=== PATIENT | female | born 1990 | race Caucasian/White ===

== ENCOUNTER 2019-08-24 11:40 | Emergency (ER) | payer BC, SELFPAY ==
[2019-08-24 11:48] VITALS: BP 135/87; PULSE 120; RESP 16; TEMP 37.7; O2SAT 100
--- NOTE | 2019-08-24 12:04 | ED.GENADULT ---
HPI - General Adult General Chief complaint: Upper Respiratory Infection Stated complaint: Congestion Time Seen by Provider: 08/24/19 12:04 Source: patient and RN notes reviewed Mode of arrival: ambulatory Limitations: no limitations History of Present Illness HPI narrative: 29-year-old female with complaints of upper respiratory infection symptoms, tactile fever, body aches, cough, and intermittent headaches (not the worst of her life) for 14 days. Flonase, Benadryl, DayQuil, Zyrtec, Singulair, and Tylenol (last this morning at 7 AM) with little relief. History of Asthma. Molly is concered because a coworker was recently diagnosis with Influenza. Dry cough with intermittent productive cough (yellow phlegm). Rhinorrhea and nasal congestion. No exacerbating factors consist of smoke exposure. Tactile fevers with intermittent chills. No nausea, vomiting, and abdominal pain. Denies chest pain, dyspnea, coughing up blood, difficulty swallowing, jaw pain, dental pain, facial pain, foreign body sensation, and rash. Molly denies being , LMP 08/16/2019. Some parts of this dictation were generated by voice recognition software and may contain typographical and/or grammatical inaccuracies. Related Data Home Medications Medication Instructions Recorded Confirmed albuterol sulfate 1 puff INHALATION BID 08/24/19 08/24/19 cetirizine [Zyrtec] 10 mg PO DAILY 08/24/19 08/24/19 fluticasone propionate 50 mcg INTRANASAL DAILY 08/24/19 08/24/19 montelukast 10 mg PO DAILY 08/24/19 08/24/19 Allergies Allergy/AdvReac Type Severity Reaction Status Date / Time No Known Allergies Allergy Verified 08/24/19 11:52 Review of Systems Review of Systems: Narrative: CONSTITUTIONAL: Complains of tactile fever, chills. Denies sweats. EYES: Denies visual changes, redness, discharge. ENT: Complains of rhinorrhea, congestion. Denies sore throat, otalgia. CARDIOVASCULAR: Denies chest pain, palpitations, edema. RESPIRATORY: Denies dyspnea, wheezing. Complains of dry cough, intermittent productive cough. GASTROINTESTINAL: Denies abdominal pain, nausea, vomiting, diarrhea. GENITOURINARY: Denies dysuria, hematuria, abnormal discharge. SKIN: Denies rash or itching. MUSCULOSKELETAL: Denies acute back pain, joint pain. Complains of myalgia. NEUROLOGIC: Denies numbness or focal weakness. PSYCHIATRIC: Denies anxiety or depression. Complains of intermittent ECHEVARRIA. All systems reviewed & are unremarkable except as noted in HPI and below. [facility] Past Medical History Medical History (Updated 08/24/19 @ 12:52 by ERYN Zhu) Asthma delivery delivered Genital herpes Surgical History Surgical History (Updated 08/24/19 @ 12:52 by ERYN Zhu) H/O section History of cholecystectomy Family History Family History Grandparent Hypertension Cerebrovascular accident Carcinoma of colon Family history of coronary artery disease Diabetes mellitus Mother Hypertension Family history of elevated blood lipids Family history of rheumatoid arthritis Family history of gallbladder disease Sibling Family history of elevated blood lipids Family history of gastrointestinal disorder Family history of seizure disorder Father Family history of arthritis Other Family history of malignant neoplasm of cervix Social History Social History (Updated 08/24/19 @ 12:53 by ERYN Zhu) Smoking packs per day: 0.75 Smoking cigarettes per day: 15.0 Years smoked: 4 Smoking pack-years: 3.00 Smoking status: Current every day smoker Tobacco type: cigarettes Second hand tobacco smoke exposure: No Alcohol intake: current Alcohol use details: Rarely Substance use: never Living arrangements: with family Occupation/Education: occupation Gender identity (if verbalized by the patient): Female Comments At time of
== END 2019-08-24 12:24 | disposition home or self-care (01) ==
PROVIDERS: Emergency Provider Nurse Practitioner Family; PCP Internal Medicine
DX: J10.1 Influenza due to other identified influenza virus with other respiratory manifestations (principal); F17.210 Nicotine dependence, cigarettes, uncomplicated; J45.909 Unspecified asthma, uncomplicated
CPT/HCPCS: 87804; 99213; G0463

== ENCOUNTER 2021-03-02 14:28 | Emergency (ER) | payer OTHER, SELFPAY ==
[2021-03-02 14:43] VITALS: BP 126/83; PULSE 122; RESP 16; TEMP 37.2; O2SAT 99
--- NOTE | 2021-03-02 15:11 | ED.URI ---
HPI - URI/Sore Throat General Chief Complaint: Upper Respiratory Infection Stated Complaint: cough/mucus/congestion Source: patient and RN notes reviewed Limitations: no limitations History of Present Illness HPI Narrative: The unvaccinated patient, who is a smoker/occasional drinker staying at home, presents with 1/2-week history of nasal congestion, cough and mild hoarseness. Family members/notes are unwell; no fever measured, sore throat, earache, pet/allergy triggers. No loss of taste/smell, CP, wheezing/sneezing, S OB, vomiting/diarrhea. She requests refill of prior inhaler Related Data Home Medications Medication Instructions Recorded Confirmed albuterol sulfate 1 puff INHALATION BID 08/24/19 03/02/21 Allergies Allergy/AdvReac Type Severity Reaction Status Date / Time No Known Allergies Allergy Verified 03/02/21 14:47 Review of Systems Review of Systems: General/Constitutional: No weight loss,fever Eyes: N0: Redness,discharge Ears/Nose/Throat: No: Epistaxis,ear discharge Respiratory: Denies: Hemoptysis Gastrointestinal: No Vomiting, Bleeding-rectal Skin: No Lumps, eruption Neurologic: No Focal Weakness,Sz Hematologic: Denies: Petechiae/Purpura Psychiatric: No: Suicida ideationl All Other Systems: Reviewed and Negative [facility] Past Medical History Medical History (Updated 03/02/21 @ 15:16 by Apolinar Coulter MD) Asthma delivery delivered Genital herpes Surgical History Surgical History (Updated 08/24/19 @ 12:52 by ERYN Zhu) H/O section History of cholecystectomy Family History Family History Grandparent Hypertension Cerebrovascular accident Carcinoma of colon Family history of coronary artery disease Diabetes mellitus Mother Hypertension Family history of elevated blood lipids Family history of rheumatoid arthritis Family history of gallbladder disease Sibling Family history of elevated blood lipids Family history of gastrointestinal disorder Family history of seizure disorder Father Family history of arthritis Other Family history of malignant neoplasm of cervix Social History Social History (Updated 08/24/19 @ 12:53 by ERYN Zhu) Smoking packs per day: 0.75 Smoking cigarettes per day: 15.0 Years smoked: 4 Smoking pack-years: 3.00 Smoking status: Current every day smoker Tobacco type: cigarettes Second hand tobacco smoke exposure: No Alcohol intake: current Alcohol use details: Rarely Substance use: never Gender identity (if verbalized by the patient): Female Comments At time of signature, agree with nursing past medical, surgical, social and family history. There is no relevant family history pertinent to the presenting complaint Exam Narrative: General Appearance: Well appearing, Well nourished EYE: PERRLA, Conjunctiva clear Ears: Auditory canal normal, TM normal Nose: Rhinorrhea, Mucousal erythema Mouth/Throat: MM moist, Uvula midline, Pharyngeal erythema Neck: Supple, No adenopathy Respiratory: No respiratory distress, Breath sounds equal, Clear to auscultation Cardiovascular: RRR, No JVD Musculoskeletal: Non tender, Normal strength Skin: Warm, Dry Neurological: A&O x3, CN II-XII intact Psychiatric: Normal mood, Normal affect Course Vital Signs Vital signs: Vital Signs Temperature 98.9 F 03/02/21 14:43 Pulse Rate 122 H 03/02/21 14:43 Respiratory Rate 16 03/02/21 14:43 Blood Pressure 126/83 03/02/21 14:43 Pulse Oximetry 99 03/02/21 14:43 Temperature 98.9 F 03/02/21 14:43 Pulse Rate 122 H 03/02/21 14:43 Respiratory Rate 16 03/02/21 14:43 Blood Pressure 126/83 03/02/21 14:43 Pulse Oximetry 99 03/02/21 14:43 Discharge Plan Discharge Clinical Impression: Influenza-like illness Patient Disposition: Home, Self-Care Condition: Stable Instructions: Acute B
== END 2021-03-02 15:28 | disposition home or self-care (01) ==
PROVIDERS: Emergency Provider Emergency Medicine
DX: J11.1 Influenza due to unidentified influenza virus with other respiratory manifestations (principal); F17.210 Nicotine dependence, cigarettes, uncomplicated
CPT/HCPCS: 99213; G0463

== ENCOUNTER → 2021-03-05 01:31 | Outpatient (CLI) | payer OTHER, SELFPAY ==
[2021-03-05 17:06] LABS: SARS-CoV-2 RNA PCR Negative
== END ==
PROVIDERS: Visit Provider Emergency Medicine
DX: Z20.822 Contact with and (suspected) exposure to COVID-19 (principal); J11.1 Influenza due to unidentified influenza virus with other respiratory manifestations
CPT/HCPCS: C9803; U0003; U0005

== ENCOUNTER 2021-08-17 15:59 | Emergency (ER) | payer OTHER, SELFPAY ==
[2021-08-17 16:04] VITALS: BP 132/81; PULSE 108; RESP 16; TEMP 36.8; O2SAT 99
--- NOTE | 2021-08-17 16:04 | ED.DENTAL ---
HPI - Dental/Oral General Chief complaint: Dental/Oral Stated complaint: Jaw pain Time Seen by Provider: 08/17/21 16:13 Mode of arrival: ambulatory Limitations: no limitations History of Present Illness HPI Narrative: 31-year-old female presents with concern for right tooth and jaw pain. She reports she has had problems with her wisdom teeth for a long time, however they have become more painful in the last several days. She reports using Orajel with temporary relief. She reports taking ibuprofen occasionally. She reports she has a dentist that she can go see, and will make an appointment. She denies difficulty swallowing, fever, headache. MD Complaint: tooth pain Related Data Home Medications Medication Instructions Recorded Confirmed cetirizine [Zyrtec] 10 mg PO DAILY 08/17/21 08/17/21 fluticasone propionate 1 spray INTRANASAL DAILY 08/17/21 08/17/21 Allergies Allergy/AdvReac Type Severity Reaction Status Date / Time No Known Allergies Allergy Verified 08/17/21 16:06 Review of Systems Review of Systems: CONSTITUTIONAL: Denies malaise, chills, sweats, or fever. EYES: Denies visual changes ENT: Denies rhinorrhea, congestion, sinus pain, otalgia or sore throat. Reports right upper and lower posterior dental pain CARDIOVASCULAR: Denies chest pain, palpitations RESPIRATORY: Denies cough or dyspnea. SKIN: Denies rash or itching. MUSCULOSKELETAL: Denies myalgia. NEUROLOGIC: Denies numbness, weakness, or headache. All systems reviewed & are unremarkable except as noted in HPI and below PMFSH Past Medical History Medical History (Updated 08/17/21 @ 16:20 by Farideh Molina NP) Asthma delivery delivered Genital herpes Surgical History Surgical History (Updated 08/24/19 @ 12:52 by ERYN Zhu) H/O section History of cholecystectomy Family History Family History Grandparent Hypertension Cerebrovascular accident Carcinoma of colon Family history of coronary artery disease Diabetes mellitus Mother Hypertension Family history of elevated blood lipids Family history of rheumatoid arthritis Family history of gallbladder disease Sibling Family history of elevated blood lipids Family history of gastrointestinal disorder Family history of seizure disorder Father Family history of arthritis Other Family history of malignant neoplasm of cervix Social History Social History (Updated 08/24/19 @ 12:53 by ERYN Zhu) Smoking packs per day: 0.75 Smoking cigarettes per day: 15.0 Years smoked: 4 Smoking pack-years: 3.00 Smoking status: Current every day smoker Tobacco type: cigarettes Second hand tobacco smoke exposure: No Alcohol intake: current Alcohol use details: Rarely Substance use: never Gender identity (if verbalized by the patient): Female Comments At time of signature, agree with nursing past medical, surgical, social and family history. There is no relevant family history pertinent to the presenting complaint Exam Narrative: GENERAL: Well-appearing, well-nourished, and in no acute distress. HEAD: Normocephalic, atraumatic. EYES: PERRLA, sclera clear ENT: Nares clear, turbinates pink, no rhinorrhea or epistaxis. Mucous membranes moist. TM pearly christina with sharp light reflex bilaterally; no tragal tenderness. Oropharynx without erythema or lesions. Tonsils not enlarged and without exudate. No missing teeth, broken teeth. Mild posterior erythema noted to the right upper and lower side with possible caries NECK: Supple. No lymphadenopathy. CHEST: No respiratory distress. Speaks in full sentences. HEART: Regular rate and rhythm. SKIN: Warm, dry, no visible rash. NEURO: Alert and oriented x3. PSYCH: Normal mood and affect Course Course Emergency Course: Patient is aware of diagnosis, understands and agrees to treatment plan. Anticipatory guidance give
[2021-08-17 16:09] VITALS: BP 132/81; PULSE 108; RESP 16; TEMP 36.8; O2SAT 99
== END 2021-08-17 16:25 | disposition home or self-care (01) ==
PROVIDERS: Emergency Provider Nurse Practitioner
DX: K08.89 Other specified disorders of teeth and supporting structures (principal); F17.210 Nicotine dependence, cigarettes, uncomplicated; J45.909 Unspecified asthma, uncomplicated
CPT/HCPCS: 99213; G0463

== ENCOUNTER 2024-08-07 10:06 | Outpatient (CLI) | payer OTHER, SELFPAY | END 2024-08-07 10:07 | disposition home or self-care (01) | LOC: ANHBWCAUD 10:06 | DX: H93.13 Tinnitus, bilateral (principal); R42 Dizziness and giddiness; E83.119 Hemochromatosis, unspecified | CPT/HCPCS: 92557; 92567 ==

== ENCOUNTER 2025-01-03 13:04 | Outpatient (CLI) | payer OTHER, SELFPAY ==
--- OUTSIDE RECORDS SUMMARY | 2025-01-03 13:07 | XMS_ITS | Encounter Summary ---
Author Organization [facility] Address [address] [place] [address] Care Team Providers Care Fence Supervisor Name Role Phone Unavailable Primary Care Provider Unavailabl e Encounter Details Date Type Department Care Team (Late Contact Info) Description 01/03/2025 Abstract [facility] Oncology and Hematology - [facility] [address] [place] [address] Carlos Harrington MD [address] [place] [phone] Social History Tobacco Use Types Packs/Day Years Used Date Smoking Tobacco: Former Cigarettes 0.3 1 Alcohol Use Standard Drinks/Week Comments No 0 (1 standard drink = 0.6 oz pur e alcohol) Comments No Sex and Gender Information Value Date Recorded Sex Assigned at Not on file Legal Sex Female 6:09 AM 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 Gender Identity Not on file Sexual Orientation Not on file Occupation Industry Job Start Date Job End Date Not on file Not on file Not on file Not on file documented as of this encounter Plan of Treatment Upcoming Encounters Date Type Department Care Team (Late Contact Info) Description 01/17/2025 4:30 PM CDT Telephone Check Up [facility] Oncology and Hematology - [place] [address] [place] [address] Carlos Harrington MD [address] [place] [phone] documented as of this encounter Visit Diagnoses Not on filedocumented in this encounter
--- OUTSIDE RECORDS SUMMARY | 2025-01-03 13:07 | XMS_ITS | Encounter Summary ---
Author Organization [facility] Address [address] [place] [address] Phone Care Team Providers Care Resume Specialist Name Role Phone Marlys Urena APRN, ACCOUNTING POLICY CONSULTANT Primary Care Provider [phone] Florencia Bhatia APRN, INFECTION CONTROL MANAGER Unavailable + [phone] Shweta Nino APRN, ACCOUNTING POLICY CONSULTANT Unavailable Warren Saunders MD Unavailable Elzbieta Deleon CERAMIST Unavailable Unavailab le Reason for Referral * Consult, Test & Initiate Treatment (Routine) - Closed Specialty Diagnoses / Procedures Referred By Contac t Referred To Contact Diagnoses Other chronic sinusitis Warren Saunders MD [address] [place] [address] Phone: tel: fax: [facility] [address] [place] [address] [place] [address] Phone: tel: fax: Referral ID Status Reason Start Date Expiration Date Visits Re quested Visits Authorized [id number] Closed 09/14/2024 1 1 Scheduling Instructions Molly is being referred for chronic sinusitis. Please contact patient for scheduling questions or concerns. Reason for Visit * Reason Onset Date Comments Referral 09/13/2024 EXTERNAL ENT REF ERRAL for Other chronic sinusitis Ordered by Dr Warren Saunders Encounter Details Date Type Department Care Team (Late st Contact Info) Description 09/13/2024 Telephone [facility]erral [facility] [address] [place] [address] Warren Saunders MD [address] [place] [address] Referral (EXTERNAL ENT REFERRAL for Other chronic sinusitis Ordered by Dr Warren Saunders //) Social History Tobacco Use Types Packs/Day Years Used Date Smoking Tobacco: Former Cigarettes 2 - 07/21/2024 Smokeless Tobacco: Never Alcohol Use Standard Drinks/Week Comments Not Currently 0 (1 standard drink = 0.6 oz pur e alcohol) [facility] Utilities Answer Date Recorded In the past 12 months has [employer], gas, oil, or water [employer] threatened to shut off services in your home? No 09/14/2024 Social Connection and Isolation Panel Answer Date Recorded In a typical week, how many times do you talk on the phone with family, friends, or neighbors? More than three times a week 09/14/2024 How often do you get togethe r with friends or relatives? More than three times a week 09/14/2024 How often do you attend [facility] or [facility] services? Never 09/14/2024 Do you belong to any clubs o r organizations such as restorationist groups, unions, fraternal or athletic groups, or school groups? No 09/14/2024 How often do you attend meet ings of the clubs or organizations you belong to? Never 09/14/2024 Are you , , di vorced, , never , or living with a partner? 09/14/2024 AUDIT-C Answer Date Recorded Q1: How often do you have a drink containing alcohol? Never 09/14/2024 Q2: How many drinks containi ng alcohol do you have on a typical day when you are drinking? Patient does not drink Q3: How often do you have si x or more drinks on one occasion? Never 09/14/2024 Overall Financial Resource Strain (CARDIA) Answe r Date Recorded How hard is it for you to pa y for the very basics like food, housing, medical care, and heating? Hard 09/14/2024 PHQ-2 Answer Date Recorded Total Score - Questions 1-9 0 06/13 [facility] - Occupational Stress Questionnaire Answer Date Recorded Do you feel stress - tense, restless, nervous, or anxious, or unable to sleep at night because your mind is troubled all the time - these days? Not at all 09/14/2024 Exercise Vital Sign Answer Date Recorde d On average, how many days pe r week do you engage in moderate to strenuous exercise (like a brisk walk)? 0 days 09/14/2024 On average, how many minutes do you engage in exercise at this level? 0 min 09/14/2024 Hunger Vital Sign Answer Date Recorded Within the past 12 months, y ou worried that your food would run out before you got the money to buy more. Never true 09/15/19 25 Within the past 12 months, t he food you bought just didn't last and you didn't have money to get more. Never true 09/14/2024 PRAPARE - Transportation Answer Date Re corded In the past 12 months, has l ack of transportation kept you from medical appointments or from getting medications? No 09/2024 In the past 12 months, has l ack of transportation kept you from meetings, work, or from getting things needed for daily living? No 09/14/2024 Housing Stability Vital Sign Answer Marcio e Recorded In the last 12 months, was t here a time when you were not able to pay the mortgage or rent on time? No 09/14/2024 In the past 12 months, how m any times have you moved where you were living? 0 09/14/2024 At any time in the past 12 m [facility], were you homeless or living in a senior care (including now)? No 09/14/2024 Comments No Sex and Gender Information Value Date Recorded Sex Assigned at Not on file Legal Sex Female 8:47 AM CDT Gender Identity Not on file Sexual Orientation Not on file documented as of this encounter Functional Status * AUDIT-C Score Answer Date of Assessment Author 0 09/14/2024 8:31 AM CDT Herlinda Montes De Oca * Question Answer Date of Assessment Author Q1: How often do you have a drink containing alcohol? Never 09/14/2024 8:31 AM CDT Jassi Montes De Oca Q2: How many drinks containing alcohol do you have on a typical day when you are drinking? Patient does not drink 09/14/2024 8:31 AM CDT Jassi Montes De Oca Q3: How often do you have six or more drinks on one occasion? Never 09/14/2024 8:31 AM CDT Jassi Montes De Oca documented as of this encounter Miscellaneous Notes * Telephone Encounter - Nel Delcid RN - 09/14/2024 8:04 AM CDT New order for ENT referral placed * Telephone Encounter - Cindy Mckenzie - 09/13/2024 2:40 PM CDT EXTERNAL ENT REFERRAL for Other chronic sinusitis Ordered by Dr Warren Saunders SITUATION: Speciality office requesting provider review EXTERNAL ENT REFERRAL BACKGROUND: Referral unable to be processed. ASSESSMENT: Request for provider review due to the following reason(s): Referral order inaccurate. Office where referral was sent - the provider listed in the instructions is not with the below office location- and below is where patient would like to be seen - just cannot have a non [facility] provider listed - please Place new referral so patient can be scheduled RECOMMENDATION: Based on the above information the provider has the following option(s): Please Place new referral To: [facility] ENT: [facility] [address] Sita Harman or other provider [address] [place] [address] [facility] [place] [facility] Dx: Other chronic sinusitis Warren Saunders MD [facility] - Referrals opt 7 documented in this encounter Plan of Treatment Upcoming Encounters Date Type Department Care Team (Late st Contact Info) Description 01/22/2025 11:30 AM CDT Office Visit [facility] - Pulmonology & Sleep Medicine [facility] [address] [place] [address] Warren Saunders MD [address] [place] [address] 02/19/2025 10:50 AM CDT Lab [facility] [address] [place] [address] Jaspal Cowan MD [address] [place] [address] Discharge Disposition: Discharged to home or Selfcare 02/19/2025 11:00 AM CDT Office Visit [facility] [address] [place] [address] Jaspal Cowan MD [address] [place] [address] Discharge Disposition: Discharged to home or Selfcare Scheduled Referrals Name Type Priority Associated Diagnoses Orde r Schedule ENT REFERRAL Outpatient Referral Routine Other chronic sinusitis Expected: 09/14/2024, Expires: 09/14/2025 documented as of this encounter Visit Diagnoses Diagnosis Other chronic sinusitis- Primary documented in this encounter Additional Health Concerns Assessment Noted Time PHQ-9 Depression Total Score: 0 06/25/19 25 4:17 PM COMPOSITOR APPRENTICE documented as of this encounter Care Teams Resume Specialist Relationship Specialty Start Date End Date Marlys Urena, WEB GRAPHIC DESIGNER, ACCOUNTING POLICY CONSULTANT [address] [address] PCP - General Certified Nurse Practitioner 07/09/24 Florencia Bhatia APRN, INFECTION CONTROL MANAGER [address] [place] [address] Nurse Practitioner Advanced Practice Nurse 08/08/24 Shweta Nino APRN, ACCOUNTING POLICY CONSULTANT [address] [place] [address] Nurse Practitioner Advanced Practice Nurse 08/13/24 Warren Saunders MD [address] [place] [id number] Consulting Physician Pulmonary Disease 08/27/24 Elzbieta Deleon, CERAMIST [facility] Support Consultant Video Production Engineer 11/06/24 11/08/24 documented as of this encounter
--- OUTSIDE RECORDS SUMMARY | 2025-01-03 13:07 | XMS_ITS | Clinical Summary ---
Author Organization [facility] Virtual Care Address Formerly [facility] [place] [address] Phone Care Team Providers Care Medical Surgery Nurse Name Role Phone Marlys Urena NP Primary Care Provider [phone] Allergies No known active allergies Medications acetaminophen (TYLENOL) 500 mg tablet Take 2 tablets (1,000 mg total) by mouth every 6 (six) hours as needed Active famotidine (PEPCID) 10 mg tablet Take 1 tablet (10 mg total) by mouth daily Active fluticasone propionate (FLONASE) 50 mcg/actuation nasal spray Administer 1 spray into affected nostril(s) 2 (two) times a day as needed 5 Active ibuprofen 200 mg tab/cap Take 1 tablet/capsule (200 mg total) by mouth every 6 (six) hours as needed Active LORazepam (ATIVAN) 1 mg tablet Take 0.5 tablets (0.5 mg total) by mouth every 12 (twelve) hours as needed 5 Active SUMAtriptan (IMITREX) 50 mg tablet Take 1 tablet (50 mg total) by mouth daily as needed 5 Active cyanocobalamin, vitamin B-12, 1,000 mcg/mL drops Take 2 Pump by mouth daily Active cholecalciferol , vitamin D3, (VITAMIN D3 ORAL) Take 4,000 Units by mouth daily Active Active Problems Problem Noted Date Diagnosed Date 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/10/2024 Anxiety 07/09/2024 Encounters Date Type Department Care Team Description 12/24/2024 Telephone [facility] Scheduling [address] [place] [address] Alisha Fisher 12/13/2024 Results Follow-Up [facility] Allergy and Immunology [address] [facility] [address] [place] [phone] Briana Michelle MD Strep pneumoniae antibody serotypes 12/10/2024 2:59 PM CDT - 12/10/2024 11:59 PM CDT Hospital Encounter [facility] [address] [place] [address] Chronic sinusitis, unspecified location; Persistent asthma without complication, unspecified asthma severity Discharge Disposition: Discharge to home or self care 12/10/2024 2:50 PM CDT Lab [facility] Infectious Diseases [address] [facility] [address] [place] [phone] 12/10/2024 1:00 PM CDT Office Visit [facility] Allergy and Immunology [address] [facility] [address] [place] [phone] Briana Michelle MD Persistent asthma without complication, unspecified asthma severity (Primary Dx); Chronic sinusitis, unspecified location 10/24/2024 Telephone [facility] Ophthalmology [address] [place] [address] Dana Rodriguez, JOSS joshii from Last 3 Months Social History Tobacco Use Types Packs/Day Years Used Date Smoking Tobacco: Never Passive Smoke Exposure: Never Smokeless Tobacco: Never Tobacco Cessation:Counseling Given: Not Answered Personal Safety Answer Date Recorded Have you ever been in or are you currently in a harmful physical or emotional relationship or is someone making you feel afraid or unsafe? 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 Oxygen Saturation 99% 12/10/2024 1:01 PM CDT Inhaled Oxygen Concentration - - Weight 76.8 kg (169 lb 6.4 oz) 12/10/2024 1:01 P M CDT Height 154.9 cm (5' 1) 12/10/2024 1:01 PM CDT Body Mass Index 32.01 12/10/2024 1:01 PM CDT Plan of Treatment Health Maintenance Due Date Last Done Comments Cervical Cancer Screening 1992 Depression Screening 1992 Hepatitis C Screening 1992 Varicella Vaccines (1 of 2 - 13+ 2-dose series) 2005 Hepatitis B Screening 2010 Regular Well Visit/Exam 18-64 2010 Pneumococcal vaccine <65 (1 of 2 - PCV) 2011 Influenza Vaccine (#1) 2025 DTaP/Tdap/Td Vaccine (6 - Td or Tdap) 06/16/2027 06/16/2017, 02/25/1994, 02/02/1993, Additional history exists HPV Vaccines Aged Out No longer eligi ble based on patient's age to complete this topic Procedures Procedure Name Priority Date/Time Associated Diagnosis Comments BLOOD MISC TO [place] Routine 12/10/2024 6: 33 PM CDT DIFFERENTIAL AUTO Routine 12/10/2024 2:5 9 PM CDT Chronic sinusitis, unspecified location Persistent asthma without complication, unspecified asthma severity IMMUNE COMPETENCE Routine 12/10/2024 2:5 9 PM CDT Chronic sinusitis, unspecified location Persistent asthma without complication, unspecified asthma severity IGG Routine 12/10/2024 2:59 PM CDT Chronic sinusitis, unspecified location Persistent asthma without complication, unspecified asthma severity IGE Routine 12/10/2024 2:59 PM CDT Chronic sinusitis, unspecified location Persistent asthma without complication, unspecified asthma severity IGA Routine 12/10/2024 2:59 PM CDT Chronic sinusitis, unspecified location Persistent asthma without complication, unspecified asthma severity IGM Routine 12/10/2024 2:59 PM CDT Chronic sinusitis, unspecified location Persistent asthma without complication, unspecified asthma severity STREP PNEUMONIAE ANTIBODY SEROTYPES Routine 12/10/2024 2:59 PM CDT Chronic sinusitis, unspecified location Persistent asthma without complication, unspecified asthma severity CBC WITH AUTO DIFFERENTIAL Routine 12/10/2024 2:59 PM CDT Chronic sinusitis, unspecified location Persistent asthma without complication, unspecified asthma severity ALLERGEN BIRCH COMMON SILVER (TREE) IGE Routine 12/10/2024 2:59 PM CDT Chronic sinusitis, unspecified location Persistent asthma without complication, unspecified asthma severity ALLERGEN ELM (TREE) IGE Routine 12/11/19 2:59 PM CDT Chronic sinusitis, unspecified location Persistent asthma without complication, unspecified asthma severity ALLERGEN MAPLE/BOX ELDER (TREE) IGE Routine 12/10/2024 2:59 PM CDT Chronic sinusitis, unspecified location Persistent asthma without complication, unspecified asthma severity ALLERGEN MOUNTAIN JUNIPER (TREE) IGE Routine 12/10/2024 2:59 PM CDT Chronic sinusitis, unspecified location Persistent asthma without complication, unspecified asthma severity ALLERGEN MULBERRY (TREE) IGE Routine 12/10/2024 2:59 PM CDT Chronic sinusitis, unspecified location Persistent asthma without complication, unspecified asthma severity ALLERGEN OAK RED (TREE) IGE Routine 12/10/2024 2:59 PM CDT Chronic sinusitis, unspecified location Persistent asthma without complication, unspecified asthma severity ALLERGEN SYCAMORE BRITISH VIRGIN ISLANDER (TREE) IGE Routine 12/10/2024 2:59 PM CDT Chronic sinusitis, unspecified location Persistent asthma without complication, unspecified asthma severity ALLERGEN WALNUT (TREE) IGE Routine 12/10/2024 2:59 PM CDT Chronic sinusitis, unspecified location Persistent asthma without complication, unspecified asthma severity ALLERGEN BERMUDA GRASS (GRASS) IGE Routine 12/10/2024 2:59 PM CDT Chronic sinusitis, unspecified location Persistent asthma without complication, unspecified asthma severity ALLERGEN PEREZ GRASS (GRASS) IGE Routine 12/10/2024 2:59 PM CDT Chronic sinusitis, unspecified location Persistent asthma without complication, unspecified asthma severity ALLERGEN NAVID GRASS (GRASS) IGE Routine 12/10/2024 2:59 PM CDT Chronic sinusitis, unspecified location Persistent asthma without complication, unspecified asthma severity ALLERGEN FAGAN'S QUARTER (WEED) IGE Routine 12/10/2024 2:59 PM CDT Chronic sinusitis, unspecified location Persistent asthma without complication, unspecified asthma severity ALLERGEN RAGWEED SHORT/COMMON (WEED) IGE Routine 12/10/2024 2:59 PM CDT Chronic sinusitis, unspecified location Persistent asthma without complication, unspecified asthma severity ALLERGEN NETTLE (WEED) IGE Routine 12/10/2024 2:59 PM CDT Chronic sinusitis, unspecified location Persistent asthma without complication, unspecified asthma severity ALLERGEN ALTERNARIA TENUIS (MOLD) IGE Routine 12/10/2024 2:59 PM CDT Chronic sinusitis, unspecified location Persistent asthma without complication, unspecified asthma severity ALLERGEN ASPERGILLUS FUMIGATUS (MOLD) IGE Routine 12/10/2024 2:59 PM CDT Chronic sinusitis, unspecified location Persistent asthma without complication, unspecified asthma severity ALLERGEN PIGWEED ROUGH (WEED) IGE Routine 12/10/2024 2:59 PM CDT Chronic sinusitis, unspecified location Persistent asthma without complication, unspecified asthma severity ALLERGEN PLANTAIN SERBIAN (WEED) IGE Routine 12/10/2024 2:59 PM CDT Chronic sinusitis, unspecified location Persistent asthma without complication, unspecified asthma severity ALLERGEN CLADOSPORIUM HERBARUM (MOLD) IGE Routine 12/10/2024 2:59 PM CDT Chronic sinusitis, unspecified location Persistent asthma without complication, unspecified asthma severity ALLERGEN PENICILLIUM CHRYSOGENUM (MOLD) IGE Routine 12/10/2024 2:59 PM CDT Chronic sinusitis, unspecified location Persistent asthma without complication, unspecified asthma severity ALLERGEN EPITHELIA/DANDER CAT (ANIMAL) IGE Routine 12/10/2024 2:59 PM CDT Chronic sinusitis, unspecified location Persistent asthma without complication, unspecified asthma severity ALLERGEN COCKROACH BRIT[place] ISLANDER (INSECT) IGE Routine 12/10/2024 2:59 PM CDT Chronic sinusitis, unspecified location Persistent asthma without complication, unspecified asthma severity ALLERGEN DERMATOPHAGOIDES FARINAE (INSECT) IGE Routine 12/10/2024 2:59 PM CDT Chronic sinusitis, unspecified location Persistent asthma without complication, unspecified asthma severity ALLERGEN DERMATOPHAGOIDES PTERONYSSINUS (INSECT) IGE Routine 12/10/2024 2:59 PM CDT Chronic sinusitis, unspecified location Persistent asthma without complication, unspecified asthma severity ALLERGEN EPITHELIA/DANDER DOG (ANIMAL) IGE Routine 12/10/2024 2:59 PM CDT Chronic sinusitis, unspecified location Persistent asthma without complication, unspecified asthma severity ALLERGEN MOUSE MIX (ANIMAL) IGE Routine 12/10/2024 2:59 PM CDT Chronic sinusitis, unspecified location Persistent asthma without complication, unspecified asthma severity ALLERGEN RAT MIX (ANIMAL) IGE Routine 12/10/2024 2:59 PM CDT Chronic sinusitis, unspecified location Persistent asthma without complication, unspecified asthma severity SCAN - LABS 12/10/2024 from Last 3 Months Results * BLOOD MISC TO [place] (12/10/2024 6:33 PM CDT) Test name, chem TTIGS [facility] ref Lab Misc See Footnote LAZARUS FISHER Comment: Test Result Flag Unit RefValue Tetanus Toxoid IgG Ab, S Tetanus IgG Ab Positive REFERENCE VALUE Vaccinated: Positive (>= 0.01 IU/mL) Unvaccinated: Negative (< 0.01 IU/mL) Tetanus IgG Value 0.73 IU/mL ADDITIONAL INFORMATION This test was developed and its performance characteristics determined by [facility] in a manner consistent with CLIA requirements. This test has not been cleared or approved by the U.S. Food and Drug Administration. Test Performed by: [facility] [place] [address] [employer]: Kareem Miranda Ph.D.; CLIA# [id number] Blood 12/10/2024 6:33 PM CDT 12/11/2024 8:31 AM CDT Narrative LAZARUS FISHER - 12/14/2024 2:17 PM CDT TETANUS IgG us Briana Michelle MD LAB BLOOD ORDERABLES Final Result LAZARUS FISHER [address] Department of [employer] [place] [address] [facility] ref Lab * Allergen Rat mix (animal) IgE (12/10/2024 2:59 PM CDT) [facility] Rat mix IgE <0.10 0.00 - 0.34 kUnits/L Comment:Testing performed by : [facility], [address] [place]., [address] Blood 12/10/2024 2:59 PM CDT 12/11/2024 10:17 AM CDT Briana Michelle MD LAB BLOOD ORDERABLES Final Result MARGARITARADHA [address] [place] [address] * Allergen Mouse mix (animal) IgE (12/10/2024 2:59 PM CDT) [facility] Mouse mix IgE <0.10 0.00 - 0.34 kUnits/L Comment:Testing performed by : [facility], [address] [facility], [place]., [address] Blood 12/10/2024 2:59 PM CDT 12/11/2024 10:17 AM CDT Briana Michelle MD LAB BLOOD ORDERABLES Final Result LAZARUS FISHER [address] Department [employer] [address] * Differential, auto (12/10/2024 2:59 PM CDT) Pathologist [facility] Neutrophil abs 4.93 1.50 - 6.50 K/cumm Imm gran abs 0.02 0.00 - 0.10 K/cumm [facility] Lymphocyte abs 2.14 0.80 - 3.30 K/cumm [facility] Monocyte abs 0.32 0.20 - 0.80 K/cumm [facility] Eosinophil abs 0.04 0.00 - 0.50 K/cumm [facility] Basophil abs 0.04 0.00 - 0.10 K/cumm LAZARUS Neutrophil pct 65.8 % [facility] Comment: Interpretive Data Percent cell count reference ranges are not reported, since discordance with absolute values may lead to misinterpretation of CBC data. Current Interpretive Data was last revised on 2017. Imm gran pct 0.3 % LAZARUS Comment: Interpretive Data Percent cell count reference ranges are not reported, since discordance with absolute values may lead to misinterpretation of CBC data. Current Interpretive Data was last revised on 2017. Lymphocyte pct 28.6 % LAZARUS Comment: Interpretive Data Percent cell count reference ranges are not reported, since discordance with absolute values may lead to misinterpretation of CBC data. Current Interpretive Data was last revised on 2017. Monocyte pct 4.3 % LAZARUS Comment: Interpretive Data Percent cell count reference ranges are not reported, since discordance with absolute values may lead to misinterpretation of CBC data. Current Interpretive Data was last revised on 2017. Eosinophil pct 0.5 % LAZARUS Comment: Interpretive Data Percent cell count reference ranges are not reported, since discordance with absolute values may lead to misinterpretation of CBC data. Current Interpretive Data was last revised on 2017. Basophil pct 0.5 % LAZARUS Comment: Interpretive Data Percent cell count reference ranges are not reported, since discordance with absolute values may lead to misinterpretation of CBC data. Current Interpretive Data was last revised on 2017. Blood 12/10/2024 2:59 PM CDT 12/10/2024 7:23 PM CDT us Briana Michelle MD LAB BLOOD ORDERABLES Final Result LAZARUS [address] Department [place] [address] * Immune competence (12/10/2024 2:59 PM CDT) CD3 pct 79 60 - 88 % Comment:Testing performed by : [facility], [address] [place]., [address] CD3 Absolute 1,447 661 - 1,963 cells/mcL [facility] Comment:Testing performed by : [facility], [address] [facility], [address] CD4 pct 41 31 - 64 % [facility] Comment:Testing performed by : [facility], [address] [facility], [address] CD4 Absolute 736 365 - 1,294 cells/mcL [facility] Comment:Testing performed by : [facility], [address] [facility], [address] CD8 pct 36 12 - 40 % [facility] Comment:Testing performed by : [facility], [address] [facility], [address] CD8 Absolute 646 187 - 781 cells/mcL [facility] Comment:Testing performed by : [facility], [address] [facility], [address] CD19 pct 17 6 - 25 % [facility] Comment:Testing performed by : [facility], [address] [facility], [address] CD19 Absolute 314 86 - 488 cells/mcL [facility] Comment:Testing performed by : [facility], [address] [facility], [address] [id number] pct 5 5 - 25 % [facility] Comment:Testing performed by : [facility], [address] [facility], [address] [id number] Absolute 92 76 - 467 cells/mcL [facility] Comment:Testing performed by : [facility], [address] [facility], [address] CD4/CD8 ratio 1.1 [facility] Comment:Testing performed by : [facility], [address] [facility], [address] Blood 12/10/2024 2:59 PM CDT 12/10/2024 10:22 PM CDT Briana Michelle MD LAB BLOOD ORDERABLES Final Result Performing Organization Address [facility] Co de Phone Number [phone] [address] [facility] [employer] [address] * Allergen Penicillium chrysogenum (mold) IgE (12/10/2024 2:59 PM CDT) Penicillium chrysogenum IgE <0.10 0.00 - 0.34 kUnits/L Comment:Testing performed by : [facility], [address] [place] [address]., [address] Blood 12/10/2024 2:59 PM CDT 12/11/2024 10:17 AM CDT Briana Michelle MD LAB BLOOD ORDERABLES Final Result Performing Organization Address [facility] Co de Phone Number [facility] [address] [address] [facility] [employer] [address] * Allergen Paoli (tree) IgE (12/10/2024 2:59 PM CDT) Paoli IgE <0.10 0.00 - 0.34 kUnits/L Comment:Testing performed by : [facility], [address] [place] [address]., [address] Blood 12/10/2024 2:59 PM CDT 12/11/2024 10:17 AM CDT Briana Michelle MD LAB BLOOD ORDERABLES Final Result Performing Organization Address [facility] Co de Phone Number [facility] [address] [address] [facility] [employer] [address] * Allergen Mountain juniper (tree) IgE (12/10/2024 2:59 PM CDT) Mountain juniper IgE <0.10 0.00 - 0.34 kUnits/L Comment:Testing performed by : [facility], [address] [place] [address]., [address] Blood 12/10/2024 2:59 PM CDT 12/11/2024 10:17 AM CDT Briana Michelle MD LAB BLOOD ORDERABLES Final Result Performing Organization Address City/[facility]/ZIP Co de Phone Number LAZARUS [address] Department [employer] [address] * (ABNORMAL) CBC with auto differential (12/10/2024 2:59 PM CDT) WBC 7.49 3.80 - 9.90 K/cumm Hgb 14.0 11.9 - 15.5 g/dL [facility] Hct 43.5 35.6 - 45.5 % [facility] Plt 205 150 - 400 K/cumm [facility] MPV 12.8(H) 9.1 - 12.3 fL [facility] RBC 5.02 3.90 - 5.20 M/cumm [facility] MCV 86.7 81.3 - 96.4 fL [facility] MCH 27.9 27.1 - 33.3 pg [facility] MCHC 32.2(L) 32.3 - 35.7 g/dL [facility] RDW CV 13.1 11.1 - 14.9 % [facility] RDW SD 40.6 35.7 - 48.1 fL [facility] NRBC abs 0.00 0.00 - 0.01 K/cumm [facility] Blood 12/10/2024 2:59 PM CDT 12/10/2024 7:23 PM CDT Briana Michelle MD LAB BLOOD ORDERABLES Final Result Performing Organization Address City/[facility]/ZIP Co de Phone Number LAZARUS FISHER [address] [address] Department [employer] [address] * Strep pneumoniae antibody serotypes (12/10/2024 2:59 PM CDT) S. pneumo Type 1 (1) 0.2 >=1.0 mcg/mL [place] ref Lab S. pneumo Type 2 (2) 0.9 >=1.0 mcg/mL [facility] S. pneumo Type 3 (3) 0.2 >=1.0 mcg/mL [facility] S. pneumo Type 4 (4) 0.2 >=1.0 mcg/mL [facility] S. pneumo Type 5 (5) 0.2 >=1.0 mcg/mL [facility] S. pneumo Type 8 (8) 1.0 >=1.0 mcg/mL [facility] S. pneumo Type 9N (9) 0.5 >=1.0 mcg/mL [facility] S. pneumo Type 12F (12) 1.6 >=1.0 mcg/mL [facility] S. pneumo Type 14 (14) 1.8 >=1.0 mcg/mL [facility] S. pneumo Type 17F (17) 0.8 >=1.0 mcg/mL [facility] S. pneumo Type 19F (19) 2.4 >=1.0 mcg/mL [facility] S. pneumo Type 20 (20) 3.6 >=1.0 mcg/mL [facility] S. pneumo Type 22F (22) 4.2 >=1.0 mcg/mL [facility] S. pneumo Type 23F (23) 1.1 >=1.0 mcg/mL [facility] S. pneumo Type 6B (26) 0.8 >=1.0 mcg/mL [facility] S. pneumo Type 10A (34) 1.1 >=1.0 mcg/mL [facility] S. pneumo Type 11A (43) 1.4 >=1.0 mcg/mL [facility] S. pneumo Type 7F (51) 1.2 >=1.0 mcg/mL [facility] S. pneumo Type 15B (54) 31.8 >=1.0 mcg/mL [facility] S. pneumo Type 18C (56) 1.2 >=1.0 mcg/mL [facility] S. pneumo Type 19A (57) 2.7 >=1.0 mcg/mL [facility] S. pneumo Type 9V (68) 0.2 >=1.0 mcg/mL [facility] S. pneumo Type 33F (70) 2.8 >=1.0 mcg/mL [facility] Pneum Ab 23 interp See Footnote LAZARUS Pratt Comment: Evaluation of the immune response following pneumococcal vaccination can be assessed by measuring serotype-specific Streptococcus pneumonia IgG antibodies. Either of the following conditions is consistent with a normal response to Streptococcus pneumonia vaccination: 1. When comparing pre and post-vaccination samples, antibody concentrations increased by at least 2-fold for either >50% of serotypes in children <6 years of age or >70% of serotypes for individuals >6 years of age. 2. In either a pre- or post-vaccination sample, antibody concentrations >=1.0 mcg/mL for either >50% of serotypes for children <6 years of age or >70% of serotypes for individuals >6 years of age. Results >=1.0 mcg/mL or those showing a >=2-fold change are consistent with an immune response, but are not necessarily sufficient to provide protection against infection. ADDITIONAL INFORMATION This test was developed and its performance characteristics determined by [facility] in a manner consistent with CLIA requirements. This test has not been cleared or approved by the U.S. Food and Drug Administration. Test Performed by: [place] [address] [employer]: Kareem Miranda Ph.D.; CLIA# [id number] Blood 12/10/2024 2:59 PM CDT 12/10/2024 7:23 PM CDT us Briana Michelle MD LAB BLOOD ORDERABLES Final Result LAZARUS FISHER [address] Department [place] [address] [place] ref Lab * Allergen Bermuda grass (grass) IgE (12/10/2024 2:59 PM CDT) [facility] Bermuda grass IgE <0.10 0.00 - 0.34 kUnits/L Comment:Testing performed by : [facility], [address] [facility] [place] [address] Blood 12/10/2024 2:59 PM CDT 12/11/2024 10:17 AM CDT Result [facility] Briana Michelle MD LAB BLOOD ORDERABLES Final Result Performing Organization Address [facility] Co de Phone Number LAZARUS [address] [address] Department [place] [address] * Allergen Plantain lithuanian (weed) IgE (12/10/2024 2:59 PM CDT) Plantain lithuanian IgE <0.10 0.00 - 0.34 kUnits/L Comment:Testing performed by : [facility], [address] [place] [address]., [id number] Blood 12/10/2024 2:59 PM CDT 12/11/2024 10:17 AM CDT Result [facility] Briana Michelle MD LAB BLOOD ORDERABLES Final Result Performing Organization Address [facility] Co de Phone Number [facility] [address] [address] [facility] [place] [address] * Allergen Elm (tree) IgE (12/10/2024 2:59 PM CDT) Elm IgE <0.10 0.00 - 0.34 kUnits/L Comment:Testing performed by : [facility], [address] [place] [address], [place]., [address] Blood 12/10/2024 2:59 PM CDT 12/11/2024 10:17 AM CDT Result [facility] Briana Michelle MD LAB BLOOD ORDERABLES Final Result Performing Organization Address City/[facility]/ZIP Co de Phone Number [phone] [address] Department [employer] [address] * Allergen Cladosporium herbarum (mold) IgE (12/10/2024 2:59 PM CDT) Cladosporium herbarum IgE <0.10 0.00 - 0.34 kUnits/L Comment:Testing performed by : [facility], [address] [place] [address]., [address] Blood 12/10/2024 2:59 PM CDT 12/11/2024 10:17 AM CDT Briana Michelle MD LAB BLOOD ORDERABLES Final Result Performing Organization Address [facility] Co de Phone Number [facility] [address] [address] Department [place] [address] * Allergen Birch common silver (tree) IgE (12/10/2024 2:59 PM CDT) Birch common silver IgE <0.10 0.00 - 0.34 kUnits/L Comment:Testing performed by : [facility], [address] [place] [address]., [id number] Blood 12/10/2024 2:59 PM CDT 12/11/2024 10:17 AM CDT Result [facility] Briana Michelle MD LAB BLOOD ORDERABLES Final Result Performing Organization Address [facility] Co de Phone Number [facility] [address] [facility] [place] [address] * Allergen Alternaria tenuis (mold) IgE (12/10/2024 2:59 PM CDT) Alternaria tenius IgE <0.10 0.00 - 0.34 kUnits/L Comment:Testing performed by : [facility], [address] [place] [address]., [id number] Blood 12/10/2024 2:59 PM CDT 12/11/2024 10:17 AM CDT Briana Michelle MD LAB BLOOD ORDERABLES Final Result Performing Organization Address City/[facility] Co de Phone Number LAZARUS [address] [facility] [employer] [address] * Allergen Aspergillus fumigatus (mold) IgE (12/10/2024 2:59 PM CDT) Aspergillus fumigatus IgE <0.10 0.00 - 0.34 kUnits/L Comment:Testing performed by : [facility], [address] [place] [address]., [id number] Blood 12/10/2024 2:59 PM CDT 12/11/2024 10:17 AM CDT Briana Michelle MD LAB BLOOD ORDERABLES Final Result Performing Organization Address [facility] Co de Phone Number [phone] [facility] [place] [address] * Allergen Dermatophagoides pteronyssinus (insect) IgE (12/10/2024 2:59 PM CDT) Dermatophyton pteronyssinus IgE <0.10 0.00 - 0.34 kUnits/L Comment:Testing performed by : [facility], [address] [place] [address]., [id number] Blood 12/10/2024 2:59 PM CDT 12/11/2024 10:17 AM CDT Briana Michelle MD LAB BLOOD ORDERABLES Final Result Performing Organization Address [facility] Co de Phone Number [facility] [address] [facility] [place] [address] * Allergen Dermatophagoides farniae (insect) IgE (12/10/2024 2:59 PM CDT) Dermatophyton farinae IgE <0.10 0.00 - 0.34 kUnits/L Comment:Testing performed by : [facility], [address] [place] [address]., [id number] Blood 12/10/2024 2:59 PM CDT 12/11/2024 10:17 AM CDT Briana Michelle MD LAB BLOOD ORDERABLES Final Result Performing Organization Address [facility] Co de Phone Number LAZARUS [address] [facility] [place] [address] * Allergen Epithelia/dander dog (animal) IgE (12/10/2024 2:59 PM CDT) Dog dander IgE <0.10 0.00 - 0.34 kUnits/L Comment:Testing performed by : [facility], [address] [place] [address]., [id number] Blood 12/10/2024 2:59 PM CDT 12/11/2024 10:17 AM CDT Result [facility] Briana Michelle MD LAB BLOOD ORDERABLES Final Result Performing Organization Address [facility] Co de Phone Number [phone] [facility] [place] [address] * Allergen Cockroach puerto rican (insect) IgE (12/10/2024 2:59 PM CDT) Cockroach IgE <0.10 0.00 - 0.34 kUnits/L Comment:Testing performed by : [facility], [address] [place] [address], [place]., [id number] Blood 12/10/2024 2:59 PM CDT 12/11/2024 10:17 AM CDT Result [facility] Briana Michelle MD LAB BLOOD ORDERABLES Final Result Performing Organization Address City/[facility]/ZIP Co de Phone Number LAZARUS [address] [facility] [place] [address] * Allergen Epithelia/dander cat (animal) IgE (12/10/2024 2:59 PM CDT) Cat dander IgE <0.10 0.00 - 0.34 kUnits/L Comment:Testing performed by : [facility], [address] [place] [address]., [id number] Blood 12/10/2024 2:59 PM CDT 12/11/2024 10:17 AM CDT Result [facility] Briana Michelle MD LAB BLOOD ORDERABLES Final Result Performing Organization Address [facility] Co de Phone Number [facility] [address] Meghan Department [place] [address] * Allergen Ragweed short/common (weed) IgE (12/10/2024 2:59 PM CDT) Ragweed common IgE <0.10 0.00 - 0.34 kUnits/L Comment:Testing performed by : [facility], [address] [place] [address]., [id number] Blood 12/10/2024 2:59 PM CDT 12/11/2024 10:17 AM CDT Result [facility] Briana Michelle MD LAB BLOOD ORDERABLES Final Result Performing Organization Address [facility] Co de Phone Number [facility] [address] [facility] [place] [address] * Allergen Pigweed, rough (weed) IgE (12/10/2024 2:59 PM CDT) Pigweed rough IgE <0.10 0.00 - 0.34 kUnits/L Comment:Testing performed by : [facility], [address] [place] [address], [place]., [id number] Blood 12/10/2024 2:59 PM CDT 12/11/2024 10:17 AM CDT Result [facility] Briana Michelle MD LAB BLOOD ORDERABLES Final Result Performing Organization Address [facility] Co de Phone Number [phone] [facility] [place] [address] * Allergen Nettle (weed) IgE (12/10/2024 2:59 PM CDT) Nettle IgE <0.10 0.00 - 0.34 kUnits/L Comment:Testing performed by : [facility], [address] [place] [address]., [id number] Blood 12/10/2024 2:59 PM CDT 12/11/2024 10:17 AM CDT Briana Michelle MD LAB BLOOD ORDERABLES Final Result Performing Organization Address [facility] Co de Phone Number [phone] [facility] [place] [address] * Allergen Fagan's quarter (weed) IgE (12/10/2024 2:59 PM CDT) Fagan's quarters IgE <0.10 0.00 - 0.34 kUnits/L Comment:Testing performed by : [facility], [address] [place] [address]., [id number] Blood 12/10/2024 2:59 PM CDT 12/11/2024 10:17 AM CDT Briana Michelle MD LAB BLOOD ORDERABLES Final Result Performing Organization Address [facility] Co de Phone Number [facility] [address] Meghan Department [place] [address] * Allergen Navid grass (grass) IgE (12/10/2024 2:59 PM CDT) Navid grass IgE <0.10 0.00 - 0.34 kUnits/L Comment:Testing performed by : [facility], [address] [place] [address], [place]., [id number] Blood 12/10/2024 2:59 PM CDT 12/11/2024 10:17 AM CDT Briana Michelle MD LAB BLOOD ORDERABLES Final Result Performing Organization Address [facility] Co de Phone Number LAZARUS FISHER [address] Meghan Department of [place] [address] * Allergen Perez grass (grass) IgE (12/10/2024 2:59 PM CDT) Perez grass IgE <0.10 0.00 - 0.34 kUnits/L Comment:Testing performed by : [facility], [address] [place]., [address] Blood 12/10/2024 2:59 PM CDT 12/11/2024 10:17 AM CDT Briana Michelle MD LAB BLOOD ORDERABLES Final Result Performing Organization Address [facility] Co de Phone Number LAZARUS FISHER [address] Meghan Department [place] [address] * Allergen Goodland (tree) IgE (12/10/2024 2:59 PM CDT) [facility] Goodland (tree) IgE <0.10 0.00 - 0.34 kUnits/L Comment:Testing performed by : [facility], [address] [place]., [address] Blood 12/10/2024 2:59 PM CDT 12/11/2024 10:17 AM CDT Briana Michelle MD LAB BLOOD ORDERABLES Final Result Performing Organization Address City/[facility]/ZIP Co de Phone Number LAZARUS FISHER [address] [address] Department [place] [address] * Allergen [place] puerto rican (tree) IgE (12/10/2024 2:59 PM CDT) Pathologist [facility] [place] IgE <0.10 0.00 - 0.34 kUnits/L Comment:Testing performed by : [facility], [address] [place] [address]., [id number] Blood 12/10/2024 2:59 PM CDT 12/11/2024 10:17 AM CDT Briana Michelle MD LAB BLOOD ORDERABLES Final Result Performing Organization Address [facility] de Phone Number [phone] Meghan [place] Department [place] [address] * Allergen Maple/Box elder (tree) IgE (12/10/2024 2:59 PM CDT) [facility] Maple/box elder IgE <0.10 0.00 - 0.34 kUnits/L Comment:Testing performed by : [facility], [address] [place] [address]., [id number] Blood 12/10/2024 2:59 PM CDT 12/11/2024 10:17 AM CDT Briana Michelle MD LAB BLOOD ORDERABLES Final Result Performing Organization Address [facility] de Phone Number [phone] [facility] [place] [address] * Allergen Hampton red (tree) IgE (12/10/2024 2:59 PM CDT) Pathologist [facility] [place] IgE <0.10 0.00 - 0.34 kUnits/L Comment:Testing performed by : [facility], [address] [place] [address]., [id number] Blood 12/10/2024 2:59 PM CDT 12/11/2024 10:17 AM CDT Briana Michelle MD LAB BLOOD ORDERABLES Final Result Performing Organization Address [facility] Co de Phone Number LAZARUS FISHER [address] Meghan [place] Department [place] [address] * IgE (12/10/2024 2:59 PM CDT) IgE 10 <=100 IUnits/mL Comment:Testing performed by : [facility], [address] [facility], [place]., [address] Blood 12/10/2024 2:59 PM CDT 12/11/2024 10:30 AM CDT Briana Michelle MD LAB BLOOD ORDERABLES Final Result LAZARUS FISHER [address] [facility] [place] [address] * IgA (12/10/2024 2:59 PM CDT) Immunoglobulin A 239 70 - 400 mg/dL Blood 12/10/2024 2:59 PM CDT 12/10/2024 7:23 PM CDT Briana Michelle MD LAB BLOOD ORDERABLES Final Result Performing Organization Address [facility] Co de Phone Number LAZAURS FISHER [address] [address] Department [place] [address] * IgM (12/10/2024 2:59 PM CDT) Immunoglobulin M 131 40 - 150 mg/dL Blood 12/10/2024 2:59 PM CDT 12/10/2024 7:23 PM CDT Briana Michelle MD LAB BLOOD ORDERABLES Final Result LAZARUS FISHER [address] Meghan Department [place] [address] * IgG (12/10/2024 2:59 PM CDT) Immunoglobulin G 963 700 - 1,600 mg/dL Blood 12/10/2024 2:59 PM CDT 12/10/2024 7:23 PM CDT Briana Michelle MD LAB [place] [address] [facility] Department [place] [address] * SCAN - LABS (12/10/2024) Provider Scanning Final Result from Last 3 Months Insurance [facility] Care Teams Medical Surgery Nurse Relationship Specialty Start Date End Date Marlys Urena SUMMER ANALYST [address] [place] [address] PCP - General Rn Allergy 07/19/24
--- OUTSIDE RECORDS SUMMARY | 2025-01-03 13:07 | XMS_ITS | Encounter Summary ---
Author Organization [facility] Address [address] [place] [address] Phone Care Team Providers Care Clay Miner Name Role Phone Marlys Urena APRN, HARNESS CUTTER Primary Care Provider [phone] Florencia Bhatia RESEARCH AND DEVELOPMENT CHEMIST, SUPERVISOR FORMING AND TEMPERING Unavailable + [phone] Shweta Nino APRN, HARNESS CUTTER Unavailable Warren Saunders MD Unavailable Elzbieta Deleon CLINICAL STUDY MANAGER Unavailable Unavailab le Reason for Visit * Reason Onset Date Comments Follow-up 08/07/2024 Referral 08/07/2024 Encounter Details Date Type Department Care Team (Late st Contact Info) Description 08/07/2024 Telephone [facility] [address] [place] [address] Marlys Urena RESEARCH AND DEVELOPMENT CHEMIST, HARNESS CUTTER [address] [place] [address] Follow-up; Referral Social History Tobacco Use Types Packs/Day Years Used Date Smoking Tobacco: Former Cigarettes 2 011 - 07/21/2024 Smokeless Tobacco: Never Alcohol Use Standard Drinks/Week Comments Not Currently 0 (1 standard drink = 0.6 oz pur e alcohol) [facility] Utilities Answer Date Recorded In the past 12 months has th e [employer], gas, oil, or water [employer] threatened to shut off services in your home? No 06/24/2024 Social Connection and Isolation Panel Answer Date Recorded In a typical week, how many times do you talk on the phone with family, friends, or neighbors? More than three times a week 06/24/2024 How often do you get togethe r with friends or relatives? Once a week 06/24/2024 How often do you attend chur or caodaism services? Patient declined 06/24/2024 Do you belong to any clubs o r organizations such as confucianist groups, unions, fraternal or athletic groups, or school groups? Yes 06/24/2024 How often do you attend meet ings of the clubs or organizations you belong to? Never 06/24/2024 Are you , , di vorced, , never , or living with a partner? 06/24/2024 AUDIT-C Answer Date Recorded Q1: How often do you have a drink containing alcohol? Never 06/24/2024 Q2: How many drinks containi ng alcohol do you have on a typical day when you are drinking? Patient does not drink Q3: How often do you have si x or more drinks on one occasion? Never 06/24/2024 Overall Financial Resource Strain (CARDIA) Answe r Date Recorded How hard is it for you to pa y for the very basics like food, housing, medical care, and heating? Somewhat hard 06/24/2024 PHQ-2 Answer Date Recorded Total Score - Questions 1-9 0 06/13 [facility] - Occupational Stress Questionnaire Answer Date Recorded Do you feel stress - tense, restless, nervous, or anxious, or unable to sleep at night because your mind is troubled all the time - these days? To some extent 06/24/2024 Exercise Vital Sign Answer Date Recorde d On average, how many days pe r week do you engage in moderate to strenuous exercise (like a brisk walk)? 3 days 06/24/2024 On average, how many minutes do you engage in exercise at this level? 30 min 06/24/2024 Hunger Vital Sign Answer Date Recorded Within the past 12 months, y ou worried that your food would run out before you got the money to buy more. Sometimes true Within the past 12 months, t he food you bought just didn't last and you didn't have money to get more. Never true 05/2025 PRAPARE - Transportation Answer Date Re corded In the past 12 months, has l ack of transportation kept you from medical appointments or from getting medications? Patient declined 06/24/2024 In the past 12 months, has l ack of transportation kept you from meetings, work, or from getting things needed for daily living? Patient declined 06/24/2024 Housing Stability Vital Sign Answer Marcio e Recorded In the last 12 months, was t here a time when you were not able to pay the mortgage or rent on time? Yes 06/24/2024 In the past 12 months, how m any times have you moved where you were living? 0 06/24/2024 At any time in the past 12 m ont, were you homeless or living in a halfway (including now)? No 06/24/2024 Comments No Sex and Gender Information Value Date Recorded Sex Assigned at Not on file Legal Sex Female 8:47 AM CDT Gender Identity Not on file Sexual Orientation Not on file documented as of this encounter Miscellaneous Notes * Telephone Encounter - Marlys Urena APRN, CNP - 08/07/2024 4:07 PM MACHINE QUILT STUFFER Note was completed. INE QUILT STUFFER * Telephone Encounter - Jennifer Jimenez RN - 08/07/2024 3:12 PM MACHINE QUILT STUFFER Situation: hematology referral Background: Patient contacting PCP office. Patient states she was in yesterday and had a referral placed to a new manager cargo. She states shewas told the referral cannot be sent until the clinical notes for the visit are signed. She is wondering if they can be signed so the referral can be sent and she can schedule with hematology. Assessment: NA Recommendation: Patient requests a [employer]) message back when notes have been signed. Encounter routed to provider high priority to notify. Discussed utilizing MyChart to: discuss if they would prefer a [employer] message or phone call response INE QUILT STUFFER documented in this encounter Plan of Treatment Upcoming Encounters Date Type Department Care Team (Late st Contact Info) Description 01/22/2025 11:30 AM CDT Office Visit [facility] - Pulmonology & Sleep Medicine [facility] [address] [place] [address] Warren Saunders MD [address] [place] [address] 02/19/2025 10:50 AM CDT [facility] [address] [place] [phone] Jaspal Cowan MD [address] [place] [address] Discharge Disposition: Discharged to home or Selfcare 02/19/2025 11:00 AM CDT Office Visit [facility] [address] [place] [address] Japsal Cowan MD [address] [place] [address] Discharge Disposition: Discharged to home or Selfcare documented as of this encounter Visit Diagnoses Not on filedocumented in this encounter Additional Health Concerns Assessment Noted Time PHQ-9 Depression Total Score: 0 06/25/19 4:17 PM MACHINE QUILT STUFFER documented as of this encounter Care Teams Clay Miner Relationship Specialty Start Date End Date Marlys Urena APRN, HARNESS CUTTER [address] [place] [address] PCP - General Certified Nurse Practitioner 07/09/24 Florencia Bhatia APRN, SUPERVISOR FORMING AND TEMPERING [address] [place] [address] Nurse Practitioner Advanced Practice Nurse 08/08/24 Shweta Nino APRN, HARNESS CUTTER [address] [place] [address] Nurse Practitioner Advanced Practice Nurse 08/13/24 Warren Saunders MD [address] [place] [address] Consulting Physician Pulmonary Disease 08/27/24 Elzbieta Deleon, CLINICAL STUDY MANAGER [place] Returned Goods Receiving Clerk Lace Roller 11/06/24 11/08/24 documented as of this encounter
--- OUTSIDE RECORDS SUMMARY | 2025-01-03 13:07 | XMS_ITS | Encounter Summary ---
Author Organization [facility] Address [address] [place] [address] Phone Care Team Providers Care Ophthalmology Technician Name Role Phone Marlys Urena BOILER HOUSE SUPERVISOR Primary Care Provider Encounter Details Date Type Department Care Team (Late st Contact Info) Description 12/13/2024 Results Follow-Up [facility] Allergy and Immunology [address] [facility] [address] [place] [address] Briana Michelle MD [address] [facility] [address] [place] [address] Strep pneumoniae antibody serotypes Social History Tobacco Use Types Packs/Day Years Used Date Smoking Tobacco: Never Passive Smoke Exposure: Never Smokeless Tobacco: Never Personal Safety Answer Date Recorded Have you ever been in or are you currently in a harmful physical or emotional relationship or is someone making you feel afraid or unsafe? Denies 07/18/2024 Comments No Sex and Gender Information Value Date Recorded Sex Assigned at Not on file Legal Sex Female 8:03 PM CAT DOG OR OTHER PET GROOMER Gender Identity Not on file Sexual Orientation Not on file documented as of this encounter Plan of Treatment Not on file documented as of this encounter Visit Diagnoses Not on filedocumented in this encounter Care Teams Ophthalmology Technician Relationship Specialty Start Date End Date Marlys Urena NP [address] [place] [address] PCP - General Mat Cleaning Machine Operator 07/19/24 documented as of this encounter
--- OUTSIDE RECORDS SUMMARY | 2025-01-03 13:07 | XMS_ITS ---
Author Organization [facility] Address [address] [place] [address] Phone Care Team Providers Care Casino Beverage Server Name Role Phone Marlys Urena APRN, COLLEGE PRESIDENT Primary Care Provider [phone] Florencia Bhatia APRN, CLIENT TECHNICAL SPECIALIST Unavailable +- [phone] Shweta Nino APRN, COLLEGE PRESIDENT Unavailable Warren Saunders MD Unavailable [facility] Service Episode Status:Identified (Enrolling) Start date:09/13/2024 Related program episode:[facility] Chronic Condition Monitoring (Active) Continued Care and Services Coordination
--- OUTSIDE RECORDS SUMMARY | 2025-01-03 13:07 | XMS_ITS | Encounter Summary ---
Author Organization [facility] Address [address] [facility] [place] [address] Care Team Providers Care Dry Wall Finisher Name Role Phone Marlys Urena Primary Care Provider [phone] Encounter Details Date Type Department Care Team (Latest Contact Info) Description 01/03/2025 Travel Social History Tobacco Use Types Packs/Day Years Used Date Smoking Tobacco: Never Assessed Comments Unknown Sex and Gender Information Value Date Recorded Sex Assigned at Not on file Legal Sex Female 6:54 AM BAIT PAINTER Gender Identity Not on file Sexual Orientation Not on file documented as of this encounter Plan of Treatment Upcoming Encounters Date Type Department Care Team (Late st Contact Info) Description 03/11/2025 10:30 AM CDT Appointment [facility] Health Neurosciences [address] [place] [address] GEOFF Perez [address] documented as of this encounter Visit Diagnoses Not on filedocumented in this encounter Care Teams Dry Wall Finisher Relationship Specialty Start Date End Date Marlys Urena [address] [place] [address] PCP - General Director [employer] 10/19/24 documented as of this encounter
--- OUTSIDE RECORDS SUMMARY | 2025-01-03 13:07 | XMS_ITS ---
Author Organization [facility] Address [address] [place] [address] Phone Care Team Providers Care Services Rep Name Role Phone Marlys Urena APRN, AUDIT PRACTICE INTERN Primary Care Provider [phone] Florencia Bhatia APRN, DEPUTY CLERK Unavailable +- [phone] Shweta Nino APRN, AUDIT PRACTICE INTERN Unavailable Warren Saunders MD Unavailable [facility] Chronic Condition Monitoring Status:Enrolled (Active) Start date:09/13/2024 Enrollment date:09/13/2024 Related social drivers of health:Social Connections, Tobacco Use, Financial Resource Strain, Stress, Physical Activity, Food Insecurity, Transportation Needs, Housing Stability Related service episodes:[facility] Service Episode (Enrolling) Continued Care and Services Coordination
--- OUTSIDE RECORDS SUMMARY | 2025-01-03 13:07 | XMS_ITS | Clinical Summary ---
Author Organization [facility] Address [address] [place] [address] Phone Care Team Providers Care Natural Gas Technician Name Role Phone Marlys Urena APRN, UTILITY MAINTENANCE WORKER Primary Care Provider [phone] Florencia Bhatia APRN, [facility] Unavailable +- [phone] Shweta Nino APRN, UTILITY MAINTENANCE WORKER Unavailable Warren Saunders MD Unavailable Allergies Active Allergy Reactions Criticality Noted Date Comments Other-Environmental Allergen (Not Found In Search) Other (see Comments) Medium 06/25/2024 Hay Fever Medications ALBUTEROL IN take 2 Puffs by inhalation every 4 hours as needed for Other (Wheezing and coughing). Active SUMAtriptan (IMITREX) 50 MG Tablet Take 1 Tablet by mouth once as needed for Migraine or Headaches for up to 9 doses. Use as directed. May repeat dose in 2 hours if headache recurs. 9 Tablet Active acetaminophen (TYLENOL) 500 MG Tablet Take 1,000 mg by mouth every 6 hours as needed. Active ibuprofen (MOTRIN) 200 MG Tablet Take 200 mg by mouth every 6 hours as needed. Active VITAMIN D PO Take 1 Tablet by mouth daily. Active Cyanocobalamin (VITAMIN B-12 PO) Take 1 Tablet by mouth daily. Active fluticasone (FLONASE) 50 MCG/ACT Suspension 1 [place] by Nasal route 2 times daily as needed. Active folic acid (FOLVITE) 400 MCG Tablet Take 2 Tablets by mouth daily. 60 Tablet 2 Active Additional Information Patient not taking.Reported on 11/30/2024 LORazepam (ATIVAN) 1 MG TabletIndicatio ns:Anxiety TAKE 1/2 TABLET BY MOUTH EVERY 12 HOURS NEEDED FOR ANXIETY 10 Tablet Active famotidine (PEPCID) 10 MG Tablet Take 10 mg by mouth daily. Active loratadine (Claritin) 10 MG Tablet Take 10 mg by mouth daily as needed. Active Active Problems Problem Noted Date Diagnosed Date Arthralgia 10/16/2024 Low folic acid 10/16/2024 Stenosis of carotid artery 10/05/2024 Neck pain 10/05/2024 Vision abnormalities 10/05/2024 Neck tightness 10/05/2024 Non morbid obesity 08/28/2024 NATY (obstructive sleep apnea) 08/28/2024 Other chronic sinusitis 08/28/2024 Palpitations 08/16/2024 Dizziness 08/16/2024 Hereditary hemochromatosis 08/09/2024 Asthma 07/26/2024 Anxiety 07/09/2024 Chronic right shoulder pain 07/09/2024 Iron overload 07/05/2024 Encounters Date Type Department Care Team Description 11/30/2024 1:30 PM CDT Office Visit [facility] Cardiology [facility] [address] [place] [address] Leah Jimenez MD Palpitations (Primary Dx); Dizziness Discharge Disposition: Discharged to home or Selfcare 11/30/2024 Travel 11/22/2024 1:00 PM CDT Clinical Support [facility] Oncology Services [address] [place] [address] Ruthie Rodas PAC Sandhu, Manpreet Kaur, MD Hereditary hemochromatosis (HCC) (Primary Dx) Discharge Disposition: Discharged to home or Selfcare 11/22/2024 Travel 11/21/2024 Telephone [facility] Oncology Services [address] [place] [phone] Jaspal Cowan MD 11/19/2024 5:00 PM CDT - 11/19/2024 11:59 PM CDT [facility] [address] [place] [phone] Leah Jimenez MD Discharge Disposition: Discharged to home or Selfcare 11/19/2024 Travel 11/08/2024 Patient Outreach [facility] Filling Station Equipment Mechanic Management [address] [place] [address] Elzbieta Deleon [facility] Care Management (Patient outreach) 11/07/2024 Telephone [facility] - [address] [phone] Marlys Urena APRN, UTILITY MAINTENANCE WORKER Referral 11/06/2024 Patient Outreach [facility] Filling Station [employer] [address] [place] [address] Antony Miranda [facility] Care Management ( Outreach) 11/02/2024 2:15 PM CDT Office Visit [facility] - [address] [place] [phone] Marlys Urena APRN, UTILITY MAINTENANCE WORKER Dental cavities (Primary Dx); Dizziness; Neck tightness; Vision abnormalities Discharge Disposition: Discharged to home or Selfcare 11/01/2024 Results Follow-Up [facility] - [place] [address] [place] [phone] Marlys Urena APRN, UTILITY MAINTENANCE WORKER MRI C-SPINE W/WO CONTRAST 10/31/2024 7:13 AM CDT - 10/31/2024 11:59 PM CDT [facility] [address] [place] [phone] Marlys Urena APRN, UTILITY MAINTENANCE WORKER Discharge Disposition: Discharged to home or Selfcare 10/30/2024 Travel 10/29/2024 Results Follow-Up [facility] Cardiology Services [address] [place] [phone] ANGIO NECK W/WO CONTRAST / PP, ADULT TRANS THORACIC ECHO 2D COMPLETE 10/27/2024 9:33 AM CDT - 10/27/2024 11:59 PM CDT Hospital Encounter [facility] CT [address] [place] [address] Leah Jimenez MD Discharge Disposition: Discharged to home or Selfcare 10/27/2024 Travel 10/26/2024 Travel 10/26/[address] [facility] Outpatient [address] [facility] [place] [address] Leah Jimenez MD Prior Authorization (CT denial-not meeting necessity) 10/16/2024 1:00 PM CDT Office Visit [facility] Oncology Services [address] [place] [phone] Japsal Cowan MD Pain in joint, multiple sites (Primary Dx); Low folic acid; Arthralgia, unspecified joint; Hereditary hemochromatosis (HCC); Neck pain; Vision abnormalities Discharge Disposition: Discharged to home or Selfcare 10/16/2024 Travel 10/16/2024 Transcribe Orders [facility] [address] [place] [address] Marlys Urena APRN, UTILITY MAINTENANCE WORKER Neck tightness (Primary Dx) 10/15/2024 11:00 AM CDT Office Visit [facility] - Primary Care - [place] [address] [place] [phone] Marlys Urena APRN, UTILITY MAINTENANCE WORKER Cervical radiculopathy (Primary Dx); Neck tightness; Neck pain; Dizziness Discharge Disposition: Discharged to home or Selfcare 10/15/2024 Travel 10/10/2024 10:30 AM CDT [facility] [address] [place] [address] Jaspal Cowan MD Hereditary hemochromatosis (HCC) Discharge Disposition: Discharged to home or Selfcare 10/10/2024 Travel 10/09/2024 3:00 PM CDT Telemedicine [facility] [address] [place] [phone] Kaylee Bateman, BINDERY TECHNICIAN, UTILITY MAINTENANCE WORKER Neck pain (Primary Dx); Vision abnormalities; Neck tightness 10/09/2024 [facility]phone [facility] [address] [place] [address] Marlys Urena, BINDERY TECHNICIAN, UTILITY MAINTENANCE WORKER Neck Pain 10/09/2024 [facility] [address] [place] [phone] Marlys Urena, BINDERY TECHNICIAN, UTILITY MAINTENANCE WORKER 10/09/2024 Travel 10/09/2024 Nurse Triage [facility] [address] [place] [phone] Diane Hawkins RN Neck Pain 10/08/2024 [facility]phone [facility] [address] [place] [address] Warren Saunders MD 10/05/2024 10:15 AM CDT [facility] [place] [address] [place] [phone] Leah Jimenez MD Palpitations (Primary Dx); Dizziness; NATY (obstructive sleep apnea); Neck pain; Vision abnormalities; Neck tightness Discharge Disposition: Discharged to home or Selfcare 10/05/2024 Travel from Last 3 Months Immunizations Immunization Administration Dates Next Due DTP Vaccine 02/25/1994 DTP-Hib 02/02/1993,1992,1992 MMR Vaccine 11/26/1993 OPV 02/25/1994,1992,1992 TDAP Vaccine 06/16/2017 Family History Medical History Relation Name Comments Asthma Brother 1 Jestin Sleep Apnea And hypoventilation Diabetes Brother 1 Jestin High A1C- pre d ibetic (17 years old) Rashes/Skin Problems Brother 1 Jestin Lichen plannus small fiber neuropathy Brother 2 Heart Attack Maternal Grandfather Zeus Heart Disease Maternal Grandfather Zeus Quad t ripple bypass with complete blockages High Cholesterol Maternal Grandfather Zeus Hypertension Maternal Grandfather Zeus Stroke Maternal Grandfather Zeus Diabetes Maternal Grandmother Bilinda Hypogly cemia Heart Attack Maternal Grandmother Bilinda Heart Disease Maternal Grandmother Bilinda Afib w as told heart beats backwards, had blockages High Cholesterol Maternal Grandmother Bilinda Hypertension Maternal Grandmother Bilinda Migraines Maternal Grandmother Bilinda Seizures Maternal Grandmother Bilinda Migraines Maternal Uncle Zeus Seizures Maternal Uncle Zeus Autoimmune Disease Mother Natasha Endometriosis Mother Natasha Heart Disease Mother Natasha High bp and hr , blood pooling legs, high cholesterol High Cholesterol Mother Natasha Hypertension Mother Natasha Migraines Mother Natasha Osteoarthritis Mother Natasha Rashes/Skin Problems Mother Natasha Lichen plannus- Rheumatoid Arthritis Mother Natasha Thyroid Disease Mother Natasha Heart Attack Paternal Grandmother Kenia High Cholesterol Sister 1 Sophia Migraines Sister 1 Sophia Seizures Sister 1 Sophia Thyroid Disease Sister 2 Coco Migraines Sister 3 Dena Autoimmune Disease Sister 4 Relation Name Status Comments Brother 1 Jestin Alive Brother 2 Maternal Grandfather Zeus Alive Maternal Grandmother Bilinda Alive Maternal Uncle Zeus Alive Mother Natasha Alive Paternal Grandmother Kenia Alive Sister 1 Sophia Alive Sister 2 Coco Alive Sister 3 Dena Alive Sister 4 Social History Tobacco Use Types Packs/Day Years Used Date Smoking Tobacco: Every Day Cigarettes 1 10 Started: 2010; Last attempted to quit: 07/21/2024 Smokeless Tobacco: Never Alcohol Use Standard Drinks/Week Comments Never 0 (1 standard drink = 0.6 oz pur e alcohol) [facility] Utilities Answer Date Recorded In the past 12 months has th e [employer], oil, or water [employer] threatened to shut off services in your [...] week 09/14/2024 How often do you attend chur ch or scientologist services? Never 09/14/2024 Do you belong to any clubs o r organizations such as yazdanism groups, unions, fraternal or athletic groups, or [...] Total Score - Questions 1-9 0 06/13 [facility] - Occupational [...] any time in the past 12 m [facility], were you homeless or living in a correction (including now)? No 09/14/2024 Sexually Active Control Partners Comments Yes Other Male Comments No Sex and Gender Information Value Date Recorded Sex Assigned at Not on file Legal Sex Female 8:47 AM CDT Gender Identity Not on file Sexual Orientation Not on file Last Filed Vital Signs Vital Sign Reading Time Taken Comments Blood Pressure 120/92 11/30/2024 1:49 PM CDT Pulse 74 11/30/2024 1:49 PM CDT Temperature 36.4 C (97.5 F) 11/30/2024 1:49 PM CDT Respiratory Rate 16 11/30/2024 1:49 PM CDT Oxygen Saturation 99% 11/30/2024 1:49 PM CDT Inhaled Oxygen Concentration - - Weight 75.9 kg (167 lb 6.4 oz) 11/30/2024 1:49 P M CDT Height 154.9 cm (5' 1) 11/30/2024 1:49 PM CDT Body Mass Index 31.63 11/30/2024 1:49 PM CDT Plan of Treatment Upcoming Encounters Date Type Department Care Team (Late st Contact Info) Description 01/22/2025 11:30 AM CDT Office Visit [facility] - Pulmonology & [facility] Medicine - [place] [address] [place] [address] Warren Saunders MD [address] [place] [address] 02/19/2025 10:50 AM CDT [facility] [address] [place] [phone] Jaspal Cowan MD [address] [place] [address] Discharge Disposition: Discharged to home or Selfcare 02/19/2025 11:00 AM CDT Office Visit [facility] Oncology Services [address] [place] [phone] Jaspal Cowan MD [address] [place] [address] Discharge Disposition: Discharged to home or Selfcare Health Maintenance Due Date Last Done Comments Human Papillomavirus (HPV) Immunization (1 - 3-dose series) 2007 Hepatitis B Immunization (1 of 3 - 19+ 3-dose series) 2011 Pneumococcal Immunization Combined (1 of 2 - PCV) 2011 Pap Smear 2013 Cervical Cancer Screening (CCS) 2022 HPV/Cotest 2022 SARS-COV-2 Immunization ( - season) 2024 Influenza Immunization (#1) 2025 DTaP/Tdap/Td Immunization (6 - Td or Tdap) 06/16/2027 06/16/2017, 02/25/1994, 02/02/1993, Additional history exists Respiratory Syncytial Virus (RSV) Immunization (Adult) (1 - 1-dose 75+ series) 2067 TdaP Immunization Discontinued 06/16/2017 Hepatitis C Virus (HCV) Screening Completed 07/21/2024 Meningococcal Immunization (ACWY) Aged Out No longer eligible based on patient's age to complete this topic Rotavirus Immunization Aged Out No lo nger eligible based on patient's age to complete this topic Procedures Procedure Name Priority Date/Time Associated Diagnosis Comments CBC WITH AUTO DIFFERENTIAL Routine 11/21/2024 12:20 PM CDT Hereditary hemochromatosis (HCC) IRON,TRANSFERN,CALC.T IBC,%SAT Routine 11/21/2024 12:20 PM CDT Hereditary hemochromatosis (HCC) FERRITIN Routine 11/21/2024 12:20 PM CDT Hereditary hemochromatosis (HCC) COMPLETE BLOOD COUNT (CBC) WITH DIFF Routine 11/21/2024 12:20 PM CDT Hereditary hemochromatosis (HCC) ADULT TRANS THORACIC ECHO 2D COMPLETE Routine 11/19/2024 5:55 PM CDT Palpitations Dizziness NATY (obstructive sleep apnea) Neck pain Vision abnormalities Neck tightness MRI C-SPINE W/WO CONTRAST Routine 10/31/2024 8:04 AM CDT Neck tightness Neck pain Dizziness CT ANGIO NECK W/WO CONTRAST / PP Routine 10/27/2024 10:32 AM CDT Palpitations Dizziness NATY (obstructive sleep apnea) Neck pain Vision abnormalities Neck tightness UR TEST QUAL STAT 10/27/2024 9:54 AM CDT C-REACTIVE PROTEIN (CRP) QUANT Routine 10/16/2024 2:20 PM CDT Pain in joint, multiple sites ERYTHROCYTE SEDIMENTATION RATE (ESR) Routine 10/16/2024 2:20 PM CDT Pain in joint, multiple sites CYCLIC CITRULLINATED PEPTIDE 3 Routine 10/16/2024 2:20 PM CDT Pain in joint, multiple sites RHEUMATOID FACTOR (RFQT) QUANT Routine 10/16/2024 2:20 PM CDT Pain in joint, multiple sites JESSY SCREEN MULTIPLEX W/REFLEX LOLA Routine 10/16/2024 2:20 PM CDT Pain in joint, multiple sites CBC WITH AUTO DIFFERENTIAL Routine 10/10/2024 11:17 AM CDT Hereditary hemochromatosis (HCC) IRON,TRANSFERN,CALC.T IBC,%SAT Routine 10/10/2024 11:17 AM CDT Hereditary hemochromatosis (HCC) FERRITIN Routine 10/10/2024 11:17 AM CDT Hereditary hemochromatosis (HCC) COMPLETE BLOOD COUNT (CBC) WITH DIFF Routine 10/10/2024 11:17 AM CDT Hereditary hemochromatosis (HCC) HEPATITIS PANEL ACUTE (AHP) STAT 07/21/2024 8:36 AM VISUAL MERCHANDISING ASSOCIATE from Last 3 Months or Most Recently Relevant to Health Maintenance Results * (ABNORMAL) IRON,TRANSFERN,CALC.TIBC,%SAT (11/21/2024 12:20 PM CDT) Only the most recent of2 resultswithin the time period is included. IRON 245(H) 25 - 156 mcg/dL 11/21/2024 1:27 PM CDT [facility] TRANSFERRIN 290 180 - 382 mg/dL 11/21/2024 1:27 PM CDT [facility] TIBC, CALCULATED 363 265 - 497 mcg/dL 11/21/2024 1:27 PM CDT [facility] % SATURATION * 67(H) 15 - 62 % 11/21/2024 1:27 PM CDT [facility] Blood Venipuncture / Unknown 11/21/2024 12:20 PM CDT 11/21/2024 12:44 PM CDT us Jaspal Cowan MD CHEMISTRY ORDERABLES Fin al Result [facility] [address] [place] [address] * CBC WITH AUTO DIFFERENTIAL (11/21/2024 12:20 PM CDT) Only the most recent of2 resultswithin the time period is included. WBC 5.84 4.00 - 12.00 10(3)/mcL 11/21/2024 12:49 PM CDT [facility] RBC 5.28 3.80 - 5.30 10(6)/mcL 11/21/2024 12:49 PM CDT [facility] HEMOGLOBIN (HGB) 15.4 12.0 - 15.8 g/dL 11/21/2024 12:49 PM CDT [facility] HEMATOCRIT (HCT) 45.2 36.0 - 47.0 % 11/21/2024 12:49 PM CDT [facility] MCV 85.6 82.0 - 96.0 fL 11/21/2024 12:49 PM CDT [facility] MCH 29.2 26.0 - 34.0 pg 11/21/2024 12:49 PM CDT [facility] MCHC 34.1 31.0 - 36.0 g/dL 11/21/2024 12:49 PM CDT [facility] PLATELET COUNT 196 140 - 440 10(3)/mcL 11/21/2024 12:49 PM CDT [facility] RDW 12.1 11.8 - 15.5 % 11/21/2024 12:49 PM CDT [facility] MPV 12.2 9.7 - 12.4 fL 11/21/2024 12:49 PM CDT [facility] NEUTROPHILS 56.6 47.0 - 73.0 % 11/21/2024 12:49 PM CDT [facility] LYMPHOCYTES 33.7 18.0 - 42.0 % 11/21/2024 12:49 PM CDT [facility] MONOCYTES 6.8 4.0 - 12.0 % 11/21/2024 12:49 PM CDT [facility] EOSINOPHILS 1.9 0.0 - 5.0 % 11/21/2024 12:49 PM CDT [facility] BASOPHILS 1.0 0.0 - 1.0 % 11/21/2024 12:49 PM CDT [facility] ABSOLUTE NEUTROPHILS 3.30 1.60 - 7.70 10(3)/[facility] 11/21/2024 12:49 PM CDT [facility] ABSOLUTE LYMPHOCYTES 1.97 1.30 - 3.20 10(3)/[facility] 11/21/2024 12:49 PM CDT [facility] ABSOLUTE MONOCYTES 0.40 0.20 - 1.00 10(3)/[facility] 11/21/2024 12:49 PM CDT [facility] ABSOLUTE EOSINOPHIL 0.11 0.00 - 0.40 10(3)/[facility] 11/21/2024 12:49 PM CDT [facility] ABSOLUTE BASOPHILS 0.06 0.00 - 0.10 10(3)/[facility] 11/21/2024 12:49 PM CDT [facility] NRBC PER 100 WBC 0 11/22/19 25 12:49 PM CDT [facility] Blood Venipuncture / Unknown 11/21/2024 12:20 PM CDT 11/21/2024 12:44 PM CDT us Jaspal Cowan MD HEMATOLOGY ORDERABLES Fi nal Result [facility] [address] [place] [address] * FERRITIN (11/21/2024 12:20 PM CDT) Only the most recent of2 resultswithin the time period is included. FERRITIN 44 5 - 204 ng/mL 11/21/2024 1:37 PM CDT [facility] Blood Venipuncture / Unknown 11/21/2024 12:20 PM CDT 11/21/2024 12:44 PM CDT us Jaspal Cowan MD CHEMISTRY ORDERABLES Fin al Result [facility] [place] [address] * ADULT TRANS THORACIC ECHO 2D COMPLETE (11/19/2024 5:55 PM CDT) AV Peak Grad mmHg 4.93 mmHg RESULTING AGENCY Mean Aortic Valve Gradient (MAVG) 3 mmHg RESULTING AGENCY LV end maria elena diam cm 4 cm RESULTING AGENCY LV end sys diam cm 2.9 cm RESULTING AGENCY Aortic Root Diam cm 2.3 cm RESULTING AGENCY LA vol index ml/m2 14 ml/m2 RESULTING AGENCY LVOT Peak Malcolm m/sec 0.87 m/sec RESULTING AGENCY AV Peak Malcolm m/sec 1.11 m/sec RESULTING AGENCY MV Mean Grad mmHg 1 mmHg RESULTING AGENCY MVA by PHT cm2 3.19 cm2 RESUL TING AGENCY E/E' 5.6 RESULTING AGENCY AV Area (VTI) cm2 2.23 cm2 RESULTING AGENCY SEPTUM DIASTOLIC CM 0.6 cm RESULTING AGENCY PW DIASTOLIC CM 0.8 cm RESU LTING AGENCY LA VOLUME 25.3 ml RESULTING AGENCY LV EF(estimated)% 68 RESULTING AGENCY Anatomical Region Laterality Modality CARDIO N/A Ultrasound Narrative 11/20/2024 3:31 PM CDT Transthoracic Echocardiography Report (TTE) Patient name SABIHA Vora 1990 Patient ID (UPI) [id number] Indications: Palpitations and Dizziness. Study Date11/19/2024 Technical quality: Good visualization Type of Study: TTE procedure: Adult Trans Thoracic Echo 2D Complete. Priority:RoutineHR: 57 bpmBP: 133/88 mmHg Conclusions Summary The left ventricle is normal in size. Wall thickness is normal. LV function is normal. There are no regional wall motion abnormalities. LV EF of 65-70%. Grade I diastolic dysfunction. Findings Mitral Valve The mitral valve is normal. There is no evidence of mitral stenosis. There is no significant mitral regurgitation. Aortic Valve The aortic valve is trileaflet with normal leaflet excursion. There is no evidence of aortic valve stenosis. Trace AI. Tricuspid Valve The tricuspid valve is normal. There is no evidence of tricuspid stenosis. There is no significant tricuspid regurgitation. There is no evidence of pulmonary hypertension. Pulmonic Valve The pulmonic valve structure appears normal. There is no evidence of pulmonic stenosis. There is no significant pulmonic valve regurgitation. Left Atrium The left atrium size is normal. Left Ventricle The left ventricle is normal in size. Wall thickness is normal. LV function is normal. There are no regional wall motion abnormalities. LV EF of 65-70%. Grade I diastolic dysfunction. Right Atrium The right atrium size is normal. Right Ventricle Normal right ventricular cavity size and normal systolic function. Pericardial Effusion The pericardium is normal. There is no pericardial effusion visualized. Miscellaneous Aortic root and proximal ascending aorta are normal in size. Atrial septum appears intact. IVC is normal in size and respiratory response. Aortic arch appears normal. Valves Mitral Valve Area (PHT): 3.19 cm^2 Area (continuity): 1.83 cm^2 Peak E-Wave: 0.88 m/s Mean Velocity: 0.50 m/s Peak Gradient: 3.14 mmHg Mean Gradient: 1 mmHg P1/2t: 69 msec Deceleration Time: 235 msec Tissue Doppler E' Velocity: 0.12 m/s E/E':5.6 E/Lat E': 5.6 E/Med E':7.3 Aortic Valve Area (continuity): 2.23 cm^2 Mean Velocity: 0.77 m/s Area (VTI):2.22 cm^2 Mean Gradient: 3 mmHg Peak Velocity: 1.11 m/s AV VTI: 23.2 cm Peak Gradient: 4.93 mmHg Tricuspid Valve Peak E-Wave: 0.62 m/s Peak Gradient: 1.56 mmHg Pulmonic Valve Peak Velocity: 0.84 m/s Mean Velocity: 0.64 m/s Peak Gradient: 2.82 mmHg Mean Gradient: 2 mmHg LVOT Peak Velocity: 0.87 m/s Mean Velocity: 0.59 m/s Peak Gradient: 3 mmHg Mean Gradient: 2 mmHg LVOT Diameter: 1.9 cm LVOT VTI: 18.2 cm Stroke Volume: 52 ml Stroke Volume Index: 29.71 ml/m^2 Structures Left Ventricle Diastolic Dimension: 4 cm Systolic Dimension: 2.9 cm Septum Diastolic: 0.6 cm Septum Systolic: 0.9 cm PW Diastolic: 0.8 cm PW Systolic: 1.3 cm Diastolic Length: 23.8 cm Systolic Length: 12.3 cm EF Calculated: 65.84% CI: 1.68 l/min*m^2 CO: 2.94 l/min RWT: 0.4 LV EDV: 64.7 ml FS: 27.5 % LV EDV Index: 37 m^2 LV Length: 7.19 cm LV ESV: 22.1 ml LVOT Diameter: 1.9 cm LV ESV Index: 13 m^2 Global Longitudinal Strain:-16.7 Right Ventricle RVOT (PLAX) diameter:3.3 cm Tissue Doppler RV S': 12.3 TAPSE: 2.06 cm Left Atrium LA Systolic Pressure: 9.05 mmHg LA Area: 11.8 cm^2 LA Volume: 25.3 ml LA Index: 14ml/m^2 Right Atrium RA Area: 11.2 cm^2 Great Vessels Aorta Ascending Aorta: 2.6 cm Aorta Root:2.3 cm Ascending Aorta Index:1.49 cm/m^2 Demographics Age 34 Gender Female Race Height 60.98 in. Weight 167.99 lbs. BMI (BSA) 31.76 kg/m^2 (1.75 m^2) Assistant Golf Professional Alexander Lynn Physician Leah Physician Doreen Traylor Procedure Note Layton Logan MD - 11/20/2024 Transthoracic Echocardiography Report (TTE) Patient name SABIHA HU Diony Salmeron 1990 Patient ID (UPI) [id number] Indications: Palpitations and Dizziness. Study Date11/19/2024 Technical quality: Good visualization Type of Study: TTE procedure: Adult Trans Thoracic Echo 2D Complete. Priority:RoutineHR: 57 bpmBP: 133/88 mmHg Conclusions Summary The left ventricle is normal in size. Wall thickness is normal. LV function is normal. There are no regional wall motion abnormalities. LV EF of 65-70%. Grade I diastolic dysfunction. Findings Mitral Valve The mitral valve is normal. There is no evidence of mitral stenosis. There is no significant mitral regurgitation. Aortic Valve The aortic valve is trileaflet with normal leaflet excursion. There is no evidence of aortic valve stenosis. Trace AI. Tricuspid Valve The tricuspid valve is normal. There is no evidence of tricuspid stenosis. There is no significant tricuspid regurgitation. There is no evidence of pulmonary hypertension. Pulmonic Valve The pulmonic valve structure appears normal. There is no evidence of pulmonic stenosis. There is no significant pulmonic valve regurgitation. Left Atrium The left atrium size is normal. Left Ventricle The left ventricle is normal in size. Wall thickness is normal. LV function is normal. There are no regional wall motion abnormalities. LV EF of 65-70%. Grade I diastolic dysfunction. Right Atrium The right atrium size is normal. Right Ventricle Normal right ventricular cavity size and normal systolic function. Pericardial Effusion The pericardium is normal. There is no pericardial effusion visualized. Miscellaneous Aortic root and proximal ascending aorta are normal in size. Atrial septum appears intact. IVC is normal in size and respiratory response. Aortic arch appears normal. Valves Mitral Valve Area (PHT): 3.19 cm^2 Area (continuity): 1.83 cm^2 Peak E-Wave: 0.88 m/s Mean Velocity: 0.50 m/s Peak Gradient: 3.14 mmHg Mean Gradient: 1 mmHg P1/2t: 69 msec Deceleration Time: 235 msec Tissue Doppler E' Velocity: 0.12 m/s E/E':5.6 E/Lat E': 5.6 E/Med E':7.3 Aortic Valve Area (continuity): 2.23 cm^2 Mean Velocity: 0.77 m/s Area (VTI):2.22 cm^2 Mean Gradient: 3 mmHg Peak Velocity: 1.11 m/s AV VTI: 23.2 cm Peak Gradient: 4.93 mmHg Tricuspid Valve Peak E-Wave: 0.62 m/s Peak Gradient: 1.56 mmHg Pulmonic Valve Peak Velocity: 0.84 m/s Mean Velocity: 0.64 m/s Peak Gradient: 2.82 mmHg Mean Gradient: 2 mmHg LVOT Peak Velocity: 0.87 m/s Mean Velocity: 0.59 m/s Peak Gradient: 3 mmHg Mean Gradient: 2 mmHg LVOT Diameter: 1.9 cm LVOT VTI: 18.2 cm Stroke Volume: 52 ml Stroke Volume Index: 29.71 ml/m^2 Structures Left Ventricle Diastolic Dimension: 4 cm Systolic Dimension: 2.9 cm Septum Diastolic: 0.6 cm Septum Systolic: 0.9 cm PW Diastolic: 0.8 cm PW Systolic: 1.3 cm Diastolic Length: 23.8 cm Systolic Length: 12.3 cm EF Calculated: 65.84% CI: 1.68 l/min*m^2 CO: 2.94 l/min RWT: 0.4 LV EDV: 64.7 ml FS: 27.5 % LV EDV Index: 37 m^2 LV Length: 7.19 cm LV ESV: 22.1 ml LVOT Diameter: 1.9 cm LV ESV Index: 13 m^2 Global Longitudinal Strain:-16.7 Right Ventricle RVOT (PLAX) diameter:3.3 cm Tissue Doppler RV S': 12.3 TAPSE: 2.06 cm Left Atrium LA Systolic Pressure: 9.05 mmHg LA Area: 11.8 cm^2 LA Volume: 25.3 ml LA Index: 14ml/m^2 Right Atrium RA Area: 11.2 cm^2 Great Vessels Aorta Ascending Aorta: 2.6 cm Aorta Root:2.3 cm Ascending Aorta Index:1.49 cm/m^2 Demographics Age 34 Gender Female Race Height 60.98 in. Weight 167.99 lbs. BMI (BSA) 31.76 kg/m^2 (1.75 m^2) Assistant Golf Professional Alexander Lynn Physician Leah Physician Doreen Traylor Leah Jimenez MD IMG ECHO ORDERA BLES Edited Result - Final * MRI C-SPINE W/WO CONTRAST (10/31/2024 8:04 AM CDT) Anatomical Region Laterality Modality Spine, C-spine N/A Magnetic Resonan ce 10/31/2024 11:0 2 AM CDT Impressions 10/31/2024 11:04 AM CDT IMPRESSION: Constellation of straightening of the cervical lordosis and mild spondylosis and degenerative disc disease of the cervical spine as detailed level by level above without spinal canal stenosis or neural foraminal stenosis. Narrative 10/31/2024 11:04 AM CDT EXAM DESCRIPTION: MRI CERVICAL SPINE WITHOUT AND WITH CONTRAST REASON FOR STUDY: Chronic neck discomfort and tightness for several months. No provided history of radiculopathy. No provided history of trauma or inciting and/or aggravating events. History of asthma; no cancer history. No intracranial, vascular, or spinal surgeries. TECHNIQUE: Sagittal and Axial imaging includes T1, T2, STIR and gradient echo sequences. Post contrast T1-weighted images. CONTRAST TYPE/DOSE: 16 mL ProHance injected via left AC without reported incident. COMPARISON: Relevant portions of CTA neck without and with contrast 10/27/2024; relevant portions of CT sinuses without contrast 09/17/2024; relevant portions of MRI brain without and with contrast 09/06/2024; relevant portions of two-view chest radiograph 07/21/2024. FINDINGS: ALIGNMENT: Straightening of the cervical lordosis. VERTEBRAE: No MR evidence of acute-subacute fracture. Vertebral body heights maintained. Mild spondylosis. Signal within normal limits. DISCS: Multilevel variable intervertebral disc desiccation and loss of intervertebral disc height. HARDWARE: None in the cervical spine. CORD: Normal in size and signal intensity. INDIVIDUAL DISC LEVELS: C1-C2: No spinal canal stenosis. C2-C3: No diffuse disc bulge or focal herniation. No spinal canal stenosis. No neural foraminal stenosis. C3-C4: No diffuse disc bulge or focal herniation. No spinal canal stenosis. No neural foraminal stenosis. C4-C5: No significant diffuse disc bulge or focal herniation. Mild bilateral facet arthropathy. No spinal canal stenosis. No neural foraminal stenosis. C5-C6: No significant diffuse disc bulge or focal herniation. Mild bilateral hypertrophic facet arthropathy. No spinal canal stenosis no neural foraminal stenosis. C6-C7: No diffuse disc bulge or focal herniation. No spinal canal stenosis. No neural foraminal stenosis. C7-T1: No diffuse disc bulge or focal herniation. No spinal canal stenosis. No neural foraminal stenosis. UPPER THORACIC: Incompletely imaged. No significant spinal stenosis or foraminal stenosis. OTHER: No other significant finding. THIS IS AN ELECTRONICALLY VERIFIED FINAL REPORT 10/31/2024 11:02 AM - Electronically signed by Conrado Quigley M.D. GORDY: GORDY Report ID: [id number] Reading Location: [id number] Procedure Note Conrado Quigley MD - 10/31/2024 EXAM DESCRIPTION: MRI CERVICAL SPINE WITHOUT AND WITH CONTRAST REASON FOR STUDY: Chronic neck discomfort and tightness for several months. No provided history of radiculopathy. No provided history of trauma or inciting and/or aggravating events. History of asthma; no cancer history. No intracranial, vascular, or spinal surgeries. TECHNIQUE: Sagittal and Axial imaging includes T1, T2, STIR and gradient echo sequences. Post contrast T1-weighted images. CONTRAST TYPE/DOSE: 16 mL ProHance injected via left AC without reported incident. COMPARISON: Relevant portions of CTA neck without and with contrast 10/27/2024; relevant portions of CT sinuses without contrast 09/17/2024; relevant portions of MRI brain without and with contrast 09/06/2024; relevant portions of two-view chest radiograph 07/21/2024. FINDINGS: ALIGNMENT: Straightening of the cervical lordosis. VERTEBRAE: No MR evidence of acute-subacute fracture. Vertebral body heights maintained. Mild spondylosis. Signal within normal limits. DISCS: Multilevel variable intervertebral disc desiccation and loss of intervertebral disc height. HARDWARE: None in the cervical spine. CORD: Normal in size and signal intensity. INDIVIDUAL DISC LEVELS: C1-C2: No spinal canal stenosis. C2-C3: No diffuse disc bulge or focal herniation. No spinal canal stenosis. No neural foraminal stenosis. C3-C4: No diffuse disc bulge or focal herniation. No spinal canal stenosis. No neural foraminal stenosis. C4-C5: No significant diffuse disc bulge or focal herniation. Mild bilateral facet arthropathy. No spinal canal stenosis. No neural foraminal stenosis. C5-C6: No significant diffuse disc bulge or focal herniation. Mild bilateral hypertrophic facet arthropathy. No spinal canal stenosis no neural foraminal stenosis. C6-C7: No diffuse disc bulge or focal herniation. No spinal canal stenosis. No neural foraminal stenosis. C7-T1: No diffuse disc bulge or focal herniation. No spinal canal stenosis. No neural foraminal stenosis. UPPER THORACIC: Incompletely imaged. No significant spinal stenosis or foraminal stenosis. OTHER: No other significant finding. THIS IS AN ELECTRONICALLY VERIFIED FINAL REPORT 10/31/2024 11:02 AM - Electronically signed by Conrado Quigley M.D. GORDY: GORDY Report ID: [id number] Reading Location: [place] [id number] IMPRESSION: Constellation of straightening of the cervical lordosis and mild spondylosis and degenerative disc disease of the cervical spine as detailed level by level above without spinal canal stenosis or neural foraminal stenosis. us Marlys Ortegaid BINDERY TECHNICIAN, UTILITY MAINTENANCE WORKER IMG MR ORDERABLES Final Re sult * CT ANGIO NECK W/WO CONTRAST / PP (10/27/2024 10:32 AM CDT) Anatomical Region Laterality Modality vascular N/A Computed Tomogra phy 10/29/2024 9:36 AM CDT Impressions 10/29/2024 9:38 AM CDT IMPRESSION: 1. No occlusion, stenosis, or dissection of the cervical arterial vasculature. 2. Incidental visualization of robust panparanasal sinus disease developing since September 2024 CT sinuses. Correlate with clinical context. Narrative 10/29/2024 9:38 AM CDT EXAM DESCRIPTION: CT ANGIOGRAPHY NECK WITH CONTRAST REASON FOR STUDY: Constellation of chronic symptoms to include neck pain, sinus congestion, unspecified dental issues, unspecified laterality pupil dilation and blurry vision. No provided history of trauma or inciting and/or aggravating events. Purportedly former smoker quit earlier this year without characterization of pack-year history. No cancer history. No provided surgical history. TECHNIQUE: Axial dynamic scanning technique with dynamic contrast enhancement through the extra-cranial carotid and vertebral arteries. Multiplanar reconstruction. All images saved on PACS. All stenosis measurements are based on NASCET criteria. 3D MIP images rendered on scanning unit and reviewed at time of interpretation. Automated exposure control was used as a dose optimization technique for this examination. COMPARISON: Relevant portions of CT sinuses without contrast 09/17/2024; relevant portions of MRI brain without and with contrast 09/06/2024; relevant portions of CT head without contrast 07/02/2024. CONTRAST TYPE/DOSE: 100 mL Isovue 370 injected via right upper arm without reported incident. FINDINGS: RIGHT CAROTIDS: No occlusion, stenosis, or dissection of the cervical arterial vasculature. LEFT CAROTIDS: No occlusion, stenosis, or dissection of the cervical arterial vasculature. RIGHT VERTEBRAL: Patent without evidence of stenosis or dissection. LEFT VERTEBRAL: Patent without evidence of stenosis or dissection. AORTIC ARCH: Three-vessel aortic arch. Patent subclavian arteries. NECK SOFT TISSUE: No acute abnormality. No thyroid nodule greater than 1 cm. INCLUDED LUNGS: No acute abnormality. OTHER: Incidental visualization of robust panparanasal sinus disease developing since September 2024 CT sinuses. Correlate with clinical context. THIS IS AN ELECTRONICALLY VERIFIED FINAL REPORT 10/29/2024 9:36 AM - Electronically signed by Conrado Quigley M.D. GORDY: GORDY Report ID: [id number] Reading Location: [id number] Procedure Note Conrado Quigley MD - 10/29/2024 EXAM DESCRIPTION: CT ANGIOGRAPHY NECK WITH CONTRAST REASON FOR STUDY: Constellation of chronic symptoms to include neck pain, sinus congestion, unspecified dental issues, unspecified laterality pupil dilation and blurry vision. No provided history of trauma or inciting and/or aggravating events. Purportedly former smoker quit earlier this year without characterization of pack-year history. No cancer history. No provided surgical history. TECHNIQUE: Axial dynamic scanning technique with dynamic contrast enhancement through the extra-cranial carotid and vertebral arteries. Multiplanar reconstruction. All images saved on PACS. All stenosis measurements are based on NASCET criteria. 3D MIP images rendered on scanning unit and reviewed at time of interpretation. Automated exposure control was used as a dose optimization technique for this examination. COMPARISON: Relevant portions of CT sinuses without contrast 09/17/2024; relevant portions of MRI brain without and with contrast 09/06/2024; relevant portions of CT head without contrast 07/02/2024. CONTRAST TYPE/DOSE: 100 mL Isovue 370 injected via right upper arm without reported incident. FINDINGS: RIGHT CAROTIDS: No occlusion, stenosis, or dissection of the cervical arterial vasculature. LEFT CAROTIDS: No occlusion, stenosis, or dissection of the cervical arterial vasculature. RIGHT VERTEBRAL: Patent without evidence of stenosis or dissection. LEFT VERTEBRAL: Patent without evidence of stenosis or dissection. AORTIC ARCH: Three-vessel aortic arch. Patent subclavian arteries. NECK SOFT TISSUE: No acute abnormality. No thyroid nodule greater than 1 cm. INCLUDED LUNGS: No acute abnormality. OTHER: Incidental visualization of robust panparanasal sinus disease developing since September 2024 CT sinuses. Correlate with clinical context. THIS IS AN ELECTRONICALLY VERIFIED FINAL REPORT 10/29/2024 9:36 AM - Electronically signed by Conrado Quigley M.D. GORDY: GORDY Report ID: [id number] Reading Location: [id number] IMPRESSION: 1. No occlusion, stenosis, or dissection of the cervical arterial vasculature. 2. Incidental visualization of robust panparanasal sinus disease developing since September 2024 CT sinuses. Correlate with clinical context. Leah Jimenez MD IMG CT ORDERABL ES Final Result * Ur Test Qual (10/27/2024 9:54 AM CDT) PREG TEST,MONOCLONA L Negative 10/27/2024 10:13 AM CDT [facility] Urine Non-Phlebotomy Collection / Unknown 10/27/2024 9:54 AM CDT 10/27/2024 9:54 AM CDT Leah Jimenez MD URINE ORDERABLE S Final Result [facility] [place] [address] * CYCLIC CITRULLINATED PEPTIDE 3 (10/16/2024 2:20 PM CDT) CCP IGG <0.5 <3.0 U/mL 10/16/2024 10:30 PM CDT [facility] Blood Venipuncture / Unknown 10/16/2024 2:20 PM CDT 10/16/2024 2:32 PM CDT Narrative [facility] - 10/16/2024 10:30 PM CDT Antibody testing was performed by multiplex flow immunoassay on the [employer] platform. Jaspal Cowan MD IMMUNOLOGY ORDERABLES Fi nal Result Performing Organization Address City/[facility]/ZIP Co de Phone Number [facility] [address] [place] [address], * ERYTHROCYTE SEDIMENTATION RATE (ESR) (10/16/2024 2:20 PM CDT) ESR (SED RATE, ERYTHROCYTE SEDIMENTATION RATE) 6 <20 mm/h 10/16/2024 4:09 PM CDT [facility] Comment: Patients presenting with increased level of fibrinogen, gamma globulins, or abnormally shaped RBCs could affect the results for the erythrocyte sedimentation rate (ESR). Results should be clinically correlated. Blood Venipuncture / Unknown 10/16/2024 2:20 PM CDT 10/16/2024 2:32 PM CDT Jaspal Cowan MD HEMATOLOGY ORDERABLES Fi nal Result Performing Organization Address [facility] de Phone Number [facility] [place] [address] * RHEUMATOID FACTOR (RFQT) QUANT (10/16/2024 2:20 PM CDT) RHEUMATOID FACTOR QT <13 <30 IU/mL 10/16/2024 3:02 PM CDT [facility] Blood Venipuncture / Unknown 10/16/2024 2:20 PM CDT 10/16/2024 2:32 PM CDT Narrative [facility] - 10/16/2024 3:02 PM CDT RHEUMATOID FACTORS CAN BE FOUND IN RHEUMATOID ARTHRITIS, SYPHILIS, VIRAL INFECTIONS, LEPROSY, CHRONIC LIVER DISEASE, NEOPLASMS, AND OTHER INFLAMMATORY CONDITIONS. RF PREVALENCE ALSO INCREASES WITH AGE. THUS A POSITIVE TEST IS NOT RESTRICTED TO RA. CONVERSELY, A NEGATIVE TEST DOES NOT RULE OUT RA, RHEUMATOID FACTORS ARE NOT DETECTABLE IN 10% OF ADULTS WITH THE DISEASE. Jaspal Cowan MD CHEMISTRY ORDERABLES Fin al Result Performing Organization Address [facility] de Phone Number [facility] [place] [address] * C-REACTIVE PROTEIN (CRP) QUANT (10/16/2024 2:20 PM CDT) C-REACTIVE PROTEIN 0.42 <0.50 mg/dL 10/16/2024 3:03 PM CDT [facility] Blood Venipuncture / Unknown 10/16/2024 2:20 PM CDT 10/16/2024 2:31 PM CDT Jaspal Cowan MD CHEMISTRY ORDERABLES Fin al Result [facility] [place] [address] * JESSY SCREEN MULTIPLEX W/REFLEX LOLA (10/16/2024 2:20 PM CDT) JESSY SCR MULTIPLEX Negative Negative, See comment 10/16/2024 10:30 PM CDT [facility] Blood Venipuncture / Unknown 10/16/2024 2:20 PM CDT 10/16/2024 2:32 PM CDT Narrative [facility] - 10/16/2024 10:30 PM CDT Antibody testing was performed by multiplex flow immunoassay on the [employer] platform. Jaspal Cowan MD IMMUNOLOGY ORDERABLES Fi nal Result Performing Organization Address City/[facility]/ZIP Co de Phone Number [facility] [address] [place] [address], * Hepatitis Panel Acute (AHP) (07/21/2024 8:36 AM VISUAL MERCHANDISING ASSOCIATE) Pathologist [facility] HEPATITIS A IGM ANTIBODY NON DETECTED NON DETECTED 07/21/2024 9:12 PM VISUAL MERCHANDISING ASSOCIATE [facility] Comment: IGM Antibodies to HAV not detected. Does not exclude early acute or recovered HAV infection. HEP B CORE AB (IGM) NON DETECTED NON DETECTED 07/21/2024 9:12 PM VISUAL MERCHANDISING ASSOCIATE [facility] Comment:IGM anti-HBC not det ected. Does not exclude the possibility of exposure to or infection with HBV. HEPATITIS B SURFACE ANTIGEN NON DETECTED NON DETECTED 07/21/2024 9:12 PM VISUAL MERCHANDISING ASSOCIATE [facility] Comment:A nonreactive test r esult does not exclude the possibility of exposure to or infection with Hepatitis B virus. A nonreactive test result in individuals with prior exposure to hepatitis B may be due to antigen levels below the detection limit of this assay or lack of antigen reactivity to the antibodies in this assay. hepatitis C antibody 0.29 <1 S/CO 07/21/2024 9:12 PM VISUAL MERCHANDISING ASSOCIATE [facility] Comment: Signal/Cutoff ratio < 0.79 is Nondetected Signal/Cutoff ratio 0.80-0.99 is Grayzone Signal/Cutoff ratio > 0.99 is Detected Supplemental assays are recommended if signal/cutoff ratio is >/=1.00. Signal/cutoff ratio result >/= 5.00 is 97% predictive of positivity for recombinant immunoblot assay (RIBA) and will be reported to the [place] Department [facility] Public [facility] as required. Blood Venipuncture / Unknown 07/21/2024 8:36 AM VISUAL MERCHANDISING ASSOCIATE 07/21/2024 10:44 AM VISUAL MERCHANDISING ASSOCIATE us Shar Garibay MD HEMATOLOGY ORDERABLES Final Resu lt [facility] [address] [place] [address], [place] from Last 3 Months or Most Recently Relevant to Health Maintenance Insurance MEDICAID [employer] Care Teams Natural Gas Technician Relationship Specialty Start Date End Date Marlys Urena APRN, UTILITY MAINTENANCE WORKER [id number] [place] [address] PCP - General Certified Nurse Practitioner 07/09/24 Florencia Bhatia APRN, CUSTODIAL OPERATIONS MANAGER [address] [place] [address] Nurse Practitioner Advanced Practice Nurse 08/08/24 Shweta Nino APRN, [facility] [address] [place] [address] Nurse Practitioner Advanced Practice Nurse 08/13/24 Warren Saunders MD [address] [place] [address] Consulting Physician Pulmonary Disease 08/27/24
--- OUTSIDE RECORDS SUMMARY | 2025-01-03 13:07 | XMS_ITS | Encounter Summary ---
Author Organization [facility] Address [address] [facility] [place] [address] Care Team Providers Care Telephone Engineer Name Role Phone RomelMarlys Marisel Primary Care Provider [phone] Reason for Referral * Consultation (Routine) - Closed Specialty Diagnoses / Procedures Referred By Michelet t Referred To Contact Pain Management Diagnoses Cervical spondylosis Procedures DE INJ PARAVERT F JNT C/T 1 LEV DE INJ PARAVERT F JNT C/T 2 LEV Bilateral C2, C3 and C4 medial branch blocks under fluoroscopy guidance. West Michel MD [address] [place] [address] Phone: tel: fax: [facility] [address] [place] [address] Phone: tel: fax: Referral ID Status Reason Start Date Expiration Date V isits Requested Visits Authorized [id number] Closed Specialty Services Required 12/12/2024 12/12/2025 1 1 Scheduling Instructions Bilateral C2, C3 and C4 medial branch blocks under fluoroscopy guidance. Reason for Visit * Consultation (Routine) - Closed Specialty Diagnoses / Procedures Referred By Contac t Referred To Contact Pain Management Diagnoses Cervical spondylosis Procedures DE INJ PARAVERT F JNT C/T 1 LEV DE INJ PARAVERT F JNT C/T 2 LEV Bilateral C2, C3 and C4 medial branch blocks under fluoroscopy guidance. West Michel MD [address] [place] [address] Phone: tel: fax: [facility] [address] [place] [phone] Phone: tel: fax: Referral ID Status Reason Start Date Expiration Date V isits Requested Visits Authorized [id number] Closed Specialty Services Required 12/12/2024 12/12/2025 1 1 Encounter Details Date Type Department Care Team (Late st Contact Info) Description 01/03/2025 10:00 AM CDT Hospital Encounter [facility] [address] [place] [phone] West Michel MD [address] [place] [address] Social History Tobacco Use Types Packs/Day Years Used Date Smoking Tobacco: Never Assessed Comments Unknown Sex and Gender Information Value Date Recorded Sex Assigned at Not on file 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 Gender Identity Not on file Sexual Orientation Not on file documented as of this encounter Last Filed Vital Signs Vital Sign Reading Time Taken Comments Blood Pressure - - Pulse 67 01/03/2025 11:15 AM CDT Temperature 36.5 C (97.7 F) 01/03/2025 10:47 AM CDT Respiratory Rate - - Oxygen Saturation 100% 01/03/2025 11:15 AM CDT Inhaled Oxygen Concentration - - Weight - - Height - - Body Mass Index - - documented in this encounter Discharge Instructions * Patient Instructions* Lizzette Jorgensen RN - 01/03/2025 10:38 AM CDT PAIN MANAGEMENT CENTER DISCHARGE INSTRUCTIONS for: Molly De La Rosa You had the following procedure:Medial Branch Block Injection Special Instructions: No soaking in water for 48 hours. This includes tub baths, swimming pools or hot-tubs. Use ice pack today, 15 minutes out of every hour until bedtime as needed. In the morning use a heating pad on low or warm shower, as needed. Then use ice or heat whichever works best for you. Your pain may become worse during the next 24 to 48 hours. The injection may not take effect for 1 to 7 days with the average of about 72 hours. If you have fever, chills, severe headache, or any other problems, please call [phone] or the after hours answering service at [phone] and tell them your physician's name. The exchange willalert the physician accounting policy consultant. May remove band-aid in the morning on January 04, 2025. If you are diabetic, your blood sugar can elevate for the next several days due to the steroid you received with your injection. This is normal. Contact your primary care physician for medication adjustments as needed. If you take blood thinners you may resume your dose beginning after your injection today. If you are prone to swelling, the steroid may cause this to increase for the next few days. Call your primary care physician if it is significant. You may develop a red, flushed face. This can also be caused by the steroid and is normal. It should dissipate over the next several days. Continue all of your current medications as prescribed by your physician. You will be contacted by a Pain Center staff member in the next 5 - 7 days to see how you are doing. If you received sedation: Do NOT make any important decisions such as signing any legal papers for 24 hours. Do NOT drink any alcoholic beverages, including beer for [address] a car or operate machinery or power tools for 24 hours. For Your Next Visit: #2 Bilateral Cervical 2, C3, and C4 medial branch blocks Follow up with your primary doctor regarding your elevated blood pressure Please do the following:arrive 15 to 30 minutes prior to your appointment time for your admission, take your medications with a sip of water at your normal times, and if you are diabetic or on blood thinners(i.e. Plavix, Coumadin) please check with your physician for special instructions . Please notify us prior to your next scheduled injection if you have had a recent fever, diagnosed infection, or generalized illness. Please note that any medication refill request requires 72 hours to process and will only be managed during normal business hours. Our office hours are Tuesday through Tuesday from 8:30am to 4:00pm. [facility] closed weekends and holidays. IF YOU FEEL YOU ARE EXPERIENCING A MEDICAL EMERGENCY, PLEASE CALL 911 OR GO TO THE NEAREST EMERGENCY ROOM. These instructions have been reviewed with me and my questions have been answered. Patient verbalized understanding with above instructions. 01/03/2025 documented in this encounter H&P Notes * West Michel MD - 01/03/2025 10:58 AM CDT Procedure Note H&P Chief complaint: neck pain HPI: Patient comes back today for bilateral C2, C3 and C4 medial branch blocks . Patient denies any changes in her health since the last time she was seen in clinic. Physical Exam Vitals and nursing note reviewed. Constitutional: Appearance: Normal appearance. HENT: Nose: Nose normal. Eyes: Pupils: Pupils are equal, round, and reactive to light. Cardiovascular: Pulses: Normal pulses. Pulmonary: Effort: Pulmonary effort is normal. Abdominal: Palpations: Abdomen is soft. Skin: General: Skin is warm. Capillary Refill: Capillary refill takes less than 2 seconds. Neurological: Mental Status: She is alert and oriented to person, place, and time. Psychiatric: Mood and Affect: Mood normal. Behavior: Behavior normal. Plan: - Pain continues to interfere with ADLs. - Patient continues with prescribed home exercise program as tolerated. - Proceed with bilateral C2, C3 and C4 medial bracnh blocks under fluoroscopy guidance. I discussed the following risks related to medial branch blocks with the patient: 1) Infection: There's always a risk of infection at the injection site, though it's rare when proper sterile technique is used. 2) Bleeding: Patients on blood thinners or with clotting disorders may experience bleeding at the site of the injection or deeper within the tissues. 3) Nerve damage: The medial branch nerves are small, and while fluoroscopy reduces the risk, there is still a possibility of accidental nerve injury, leading to numbness, weakness, or increased pain. 4) Allergic reactions: Some patients may have an allergic reaction to the local anesthetic, steroid, or contrast dye used during the procedure. 5) Temporary numbness or weakness: The local anesthetic used may spread to surrounding nerves, causing temporary numbness or weakness in the legs or lower back. 6) Dural puncture: Accidental puncture of the dura (the membrane surrounding the spinal cord) can lead to a cerebrospinal fluid leak, potentially resulting in a post-dural puncture headache. 7) Vascular injury: Nearby blood vessels may be injured, causing bleeding or a hematoma. 8) Radiation exposure: Repeated fluoroscopic guidance exposes both the patient and physician to lowdoses of radiation over time. 9) Failure of pain relief: While generally effective, the block may not provide relief, or the relief may be short-lived. 10) Steroid side effects: If steroids are used, side effects such as elevated blood sugar, fluid retention, or weight gain may occur. Patient Education - A description of the planned procedure was given to the patient. The risks and benefits of the procedure were discussed with the patient and all questions were addressed to the patients satisfaction. Risks and benefits were discussed at length with the patient. The risks included (but not only) increased pain following the procedure, failure of procedure and the fading of local anesthetic effect. The procedure was described in detail as were the risks, benefits and alternative treatments, and he verbalized understanding. Risks including, but not limited to infection, elevations in blood glucose levels, permanent neurological deficit due to nerve injury, bleeding, anaphylaxis, flushing, cereb ral spinal fluid leak, paralysis, spinal cord injury, thinning of the skin, thinning of the bones, muscle cramping, were reviewed and understanding was confirmed. Patient is agreeable to a plan to move forward with the procedure as stated above. Follow Up: 2 weeks West Reynaga MD/PhD Web Administrator Chronic Pain Management documented in this encounter Procedure Notes * West Michel MD - 01/03/2025 11:45 AM CDTAssociated Order(s): PAIN MANAGEMENT PROCEDURE TIME PROCEDURE NOTE: BILATERAL C2, C3 and C4 medial branch Blocks Primary pain complaint: neck pain Pre-procedure diagnosis: Cervical spondylosis/cervical facet arthropathy and third occipital neuralgia Post-procedure diagnosis: Same Attending: Dr. West Reynaga MD., Ph.D. After fully informed written consent was obtained, the patient was placed in the lateral decubitus position with the target side up. Monitoring of pulse oximetry, heart rate, and blood pressure was done pre-procedure, and post- procedure. During the procedure, the patient was monitored with continuous pulse-ox. A time out was performed before the beginning of the procedure. The skin of the BILATERAL neck was prepped with chlorhexidine and draped in a sterile fashion. After very careful true lateral alignment of the fluoroscopic image, a 25-gauge, 1.5-inch needle, 1 % lidocaine was injected subcutaneously over the entry site. With the use of fluoroscopic guidance, a 25-gauge 1 ?? inch needle was inserted at the midpoint of the lateral mass of C2 and at the midpoint of the lateral masses of C3 and C4 and advanced under fluoroscopic guidance until seated at bone. An AP view was obtained to confirm needle depth. After negative aspiration, 0.1-0.2 ml of contrast was given to ensure no vascul ar uptake. After confirming the location with contrast, 0.25 ml of 2% lidocaine was injected. The needles were withdrawn. The patient tolerated the procedure well and there was no evidence of procedural complications. Thepatient was stable post-procedure and was given a post- procedure information sheet at discharge. The patient was able to ambulate upon discharge to home. Pre procedure VAS: 7/10 Post procedure VAS: 1/10 Anesthesia: local anesthesia Complications: none Plan of care: Patient advised to contact the Pain Center for any of the followin. Fever, chills, or night sweats 2. New onset of severe sharp pain 3. Any new upper/lower extremity weakness or numbness 4. Any questions regarding the procedure If unable to contact the Pain Center, patient instructed to go to local Emergency Room. Procedural Imaging Documentation: [place] from this procedure were requested to be saved in the PACS system. At the time of this dictation, I have confirmed that the images are present in the PACS system as part of the patient's medical record. I, West Reynaga, performed the whole procedure. I personally supervised the resident/fellow throughout the whole case. documented in this encounter Plan of Treatment Upcoming Encounters Date Type Department Care Team (Late st Contact Info) Description 03/11/2025 10:30 AM CDT Appointment [place] [phone] [place] [id number] Scheduled Referrals Name Type Priority Associated Diagnoses Orde r Schedule [facility] Pain Procedure @ [facility] Outpatient Referral Routine Cervical spondylosis 1 Occurrences starting 01/03/2025 until 01/03/2025 documented as of this encounter Procedures Procedure Name Priority Date/Time Associated Diagnosis Comments PAIN MANAGEMENT PROCEDURE TIME Routine 01/03/2025 11:20 AM CDT Cervical spondylosis without myelopathy documented in this encounter Results * Pain Management Procedure Time (01/03/2025 11:20 AM CDT) Anatomical Region Laterality Modality Radio Fluoroscop y Narrative 01/03/2025 11:45 AM CDT West Michel MD 01/03/2025 11:47 AM PROCEDURE NOTE: BILATERAL C2, C3 and C4 medial branch Blocks Primary pain complaint: neck pain Pre-procedure diagnosis: Cervical spondylosis/cervical facet arthropathy and third occipital neuralgia Post-procedure diagnosis: Same Attending: Dr. West Reynaga MD., Ph.D. After fully informed written consent was obtained, the patient was placed in the lateral decubitus position with the target side up. Monitoring of pulse oximetry, heart rate, and blood pressure was done pre-procedure, and post-procedure. During the procedure, the patient was monitored with continuous pulse-ox. A time out was performed before the beginning of the procedure. The skin of the BILATERAL neck was prepped with chlorhexidine and draped in a sterile fashion. After very careful true lateral alignment of the fluoroscopic image, a 25-gauge, 1.5-inch needle, 1 % lidocaine was injected subcutaneously over the entry site. With the use of fluoroscopic guidance, a 25-gauge 1 inch needle was inserted at the midpoint of the lateral mass of C2 and at the midpoint of the lateral masses of C3 and C4 and advanced under fluoroscopic guidance until seated at bone. An AP view was obtained to confirm needle depth. After negative aspiration, 0.1-0.2 ml of contrast was given to ensure no vascular uptake. After confirming the location with contrast, 0.25 ml of 2% lidocaine was injected. The needles were withdrawn. The patient tolerated the procedure well and there was no evidence of procedural complications. The patient was stable post-procedure and was given a post-procedure information sheet at discharge. The patient was able to ambulate upon discharge to home. Pre procedure VAS: 7/10 Post procedure VAS: 10 Anesthesia: local anesthesia Complications: none Plan of care: Patient advised to contact the Pain Center for any of the followin. Fever, chills, or night sweats 2. New onset of severe sharp pain 3. Any new upper/lower extremity weakness or numbness 4. Any questions regarding the procedure If unable to contact the Pain Center, patient instructed to go to local Emergency Room. Procedural Imaging Documentation: [place] from this procedure were requested to be saved in the PACS system. At the time of this dictation, I have confirmed that the images are present in the PACS system as part of the patient's medical record. I, West Reynaga, performed the whole procedure. I personally supervised the resident/fellow throughout the whole case. West Reynaga MD DIAGNOSTIC IMAGING ORDERA BLES Final Result documented in this encounter Visit Diagnoses Diagnosis Cervical spondylosis Cervical spondylosis without myelopathy Cervical spondylosis without myelopathy documented in this encounter Administered Medications Active Administered Medications - up to 3 most recent administrations Medication Order MAR Action Action Date Dose Rate Site iopamidol (Isovue M 200) 41 % contrast Intra-articular, INTRA-PROCEDURE MULTIPLE, Starting on Geovanna 01/03/25 at 1054, Until Discontinued $ Given - Contrast 01/03/2025 11:08 AM CDT 3 mL Other see comments lidocaine HCl (PF) (Xylocaine MPF) 2 % injection Intra-articular, INTRA-PROCEDURE MULTIPLE, Starting on Geovanna 01/03/25 at 1054, Until Discontinued $ Given 01/03/2025 11:08 AM CDT 5 mL Other see comments lidocaine PF (Xylocaine MPF) 1 % injection Infiltration, INTRA-PROCEDURE MULTIPLE, Starting on Geovanna 01/03/25 at 1054, Until Discontinued, Administer per physician direction. $ Given 01/03/2025 11:08 AM CDT 50 mg $ Given 01/03/2025 11:07 AM CDT 50 mg Inactive Administered Medications - up to 3 most recent administrations Medication Order MAR Action Action Date Dose Rate Site lidocaine (Xylocaine PF) 1% injection ADS Med 1 dose, Starting on Geovanna 01/03/25 at 1055, Until Geovanna 01/03/25 at 1107, Created by cabinet override documented in this encounter Care Teams Telephone Engineer Relationship Specialty Start Date End Date Marlys Urena [phone] [address] PCP - General Plaster Machine Operator 10/19/24 documented as of this encounter
--- OUTSIDE RECORDS SUMMARY | 2025-01-03 13:07 | XMS_ITS | Clinical Summary ---
Author Organization [facility] [address] [facility] 3[address] [place] [address] Phone Care Team Providers Care Vacuum Form Operator Name Role Phone Unavailable Primary Care Provider Unavailabl e Allergies No known active allergies Medications acetaminophen (TYLENOL) 500 mg tablet Take 1,000 mg by mouth every 6 hours as needed. Active ergocalciferol, vitamin D2, (VITAMIN D ORAL) 5 Active ibuprofen (MOTRIN) 200 mg tablet Take 200 mg by mouth every 6 hours as needed. Active LORazepam (ATIVAN) 1 mg tablet TAKE 1/2 TABLET BY MOUTH EVERY 12 HOURS NEEDED FOR ANXIETY 5 Active cyanocobalamin 1,000 mcg Tablet Take 1,000 mcg by mouth daily. Active albuterol (PROVENTIL,VENTOL IN) 0.63 mg/3 mL Solution for Nebulization Take 0.63 mg by inhalation one time only. Active Active Problems No known active problems Encounters Date Type Department Care Team Description 01/03/2025 Abstract [facility] Oncology and Hematology - [address] [place] [address] Carlos Harrington MD 12/26/2024 External Device Data STL ABSTRACTION Provider, Abstract 12/26/2024 External Device Data [facility] ABSTRACTION Provider, Abstract 12/18/2024 External Device Data ST[place] ABSTRACTION Provider, Abstract 12/18/2024 External Device Data STL ABSTRACTION Provider, Abstract 12/18/2024 External Device Data STL ABSTRACTION Provider, Abstract 12/12/2024 4:00 PM CDT Office Visit [facility] - [address] [place] [address] Carlos Harrington MD Iron overload (Primary Dx) from Last 3 Months Family History Medical History Relation Name Comments No Known Problems Brother 1 No Known Problems Brother 2 No Known Problems Brother 3 No Known Problems Child 1 No Known Problems Child 2 Other Father degenerative di scs Heart Disease Mother Other Mother arthritis, hx P IH, hx of blood of clots No Known Problems Sister 1 No Known Problems Sister 2 No Known Problems Sister 3 Relation Name Status Comments Brother 1 Alive Brother 2 Alive Brother 3 Alive Child 1 Alive Child 2 Alive Father Alive Mother Alive Sister 1 Alive Sister 2 Alive Sister 3 Alive Social History Tobacco Use Types Packs/Day Years Used Date Smoking Tobacco: Former Cigarettes 0.3 1 Tobacco Cessation:Counseling Given: Not Answered Alcohol Use Standard Drinks/Week Comments No 0 (1 standard drink = 0.6 oz pur e alcohol) Comments No Sex and Gender Information Value Date Recorded Sex Assigned at Not on file 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 Gender Identity Not on file Sexual Orientation Not on file Occupation Industry Job Start Date Job End Date Not on file Not on file Not on file Not on file Last Filed Vital Signs Vital Sign Reading Time Taken Comments Blood Pressure - - Pulse 76 12/12/2024 2:32 PM CDT Temperature 36.4 C (97.5 F) 12/12/2024 2:32 PM CDT Respiratory Rate 14 12/12/2024 2:32 PM CDT Oxygen Saturation 98% 12/12/2024 2:32 PM CDT Inhaled Oxygen Concentration - - Weight 76.5 kg (168 lb 9.6 oz) 12/12/2024 2:32 P M CDT Height 154.9 cm (5' 1) 12/12/2024 2:32 PM CDT Body Mass Index 31.86 12/12/2024 2:32 PM CDT Plan of Treatment Upcoming Encounters Date Type Department Care Team (Late st Contact Info) Description 01/17/2025 4:30 PM CDT Telephone Check Up [facility]ematology - [place] [address] [place] [address] Carlos Harrington MD [address] [facility] [address] [place] [address] Health Maintenance Due Date Last Done Comments HPV VACCINES (1 - 3-dose series) 2007 HEPATITIS B VACCINES (1 of 3 - 19+ 3-dose series) 2011 Preventative Visit-Managed Medicaid 2011 HPV/Cotest (21-29) 2013 CERVICAL CANCER SCREENING 2022 HPV/Cotest (30-65) 2022 PAP SMEAR 2022 INFLUENZA VACCINE (#1) 2025 DTAP/TDAP/TD VACCINES (6 - T d or Tdap) 06/16/2027 06/16/2017, 02/25/1994, 02/02/1993, Additional history exists Procedures Procedure Name Priority Date/Time Associated Diagnosis Comments CBC WITH DIFFERENTIAL Routine 12/17/2024 2:07 PM CDT IRON, TIBC, AND PERCENT SATURATION Routine 12/17/2024 2:07 PM CDT Iron overload FERRITIN Routine 12/17/2024 2:07 PM CDT Iron overload from Last 3 Months Results * IRON, TIBC, AND PERCENT SATURATION (12/17/2024 2:07 PM CDT) IRON 148 40 - 190 mcg/dL [facility] TIBC 357 250 - 450 mcg/dL (calc) [facility] IRON % SATURATION 41 16 - 45 % (calc) [facility] Comment: Test Performed at: [email or web address] [address] [place] [address] Shreya Rodrigues MD Blood 12/17/2024 2:07 PM CDT 12/17/2024 2:10 PM CDT us Carlos Harrington MD CHEMISTRY ORDERABLES Final Resu lt [facility] [phone] [facility] [address] [place] [address] * CBC WITH DIFFERENTIAL (12/17/2024 2:07 PM CDT) WBC 6.4 3.8 - 10.8 Thousand/u L [facility] RBC 4.77 3.80 - 5.10 Million/uL [facility] HEMOGLOBIN 13.7 11.7 - 15.5 g/dL [facility] HEMATOCRIT 41.6 35.0 - 45.0 % [facility] MCV 87.2 80.0 - 100.0 fL [facility] MCH 28.7 27.0 - 33.0 pg [facility] MCHC 32.9 32.0 - 36.0 g/dL [facility] Comment: For adults, a slight decrease in the calculated MCHC value (in the range of 30 to 32 g/dL) is most likely not clinically significant; however, it should be interpreted with caution in correlation with other red cell parameters and the patient's clinical condition. RDW 13.8 11.0 - 15.0 % [facility] PLATELETS 209 140 - 400 Thousand/u L [facility] MPV 12.5 7.5 - 12.5 fL [facility] NEUTROPHIL ABSOLUTE 3,802 1,500 - 7,800 cells/uL [facility] LYMPHOCYTE ABSOLUTE 2,144 850 - 3,900 cells/uL [facility] MONOCYTE ABSOLUTE 365 200 - 950 cells/uL [facility] EOSINOPHIL ABSOLUTE 58 15 - 500 cells/uL [facility] BASOPHILS ABSOLUTE 32 0 - 200 cells/uL [facility] NEUTROPHIL 59.4 % [facility] LYMPHOCYTES 33.5 % [facility] MONOCYTE 5.7 % [facility] EOSINOPHILS 0.9 % [facility] BASOPHILS 0.5 % [facility] Comment: Test Performed at: [facility] [address] [place] [address] Shreya Rodrigues MD 12/17/2024 2:07 PM CDT 12/17/2024 2:10 PM CDT us Carlos Harrington MD HEMATOLOGY ORDERABLES Final Res ult [facility] [phone] [facility] [address] [place] [address] * FERRITIN (12/17/2024 2:07 PM CDT) FERRITIN 16 16 - 154 ng/mL [facility] Comment: Test Performed at: [facility] [address] [place] [address] Shreya Rodrigues MD Blood 12/17/2024 2:07 PM CDT 12/17/2024 2:10 PM CDT us Carlos Harrington MD CHEMISTRY ORDERABLES Final Resu lt [facility] [phone] [facility] [address] [place] [address] from Last [address] [facility] MEDICAID
--- OUTSIDE RECORDS SUMMARY | 2025-01-03 13:07 | XMS_ITS | Clinical Summary ---
Author Organization [facility] Address [address] [place] [address] Care Team Providers Care Equipment Cleaner And Tester Name Role Phone Romel Marlys Joiner Primary Care Provider [phone] Source Comments [facility],non-owned Affiliates and Associated Physician Practices is amultiple site organization consisting of ambulatory clinics and hospital sitesin [place], [place], [place] and [place]. This disclosure is being madepursuant to the Care Everywhere program and may not contain all information available regarding this patient. Last updated 18.[facility] Allergies No known active allergies Medications * Be aware that medications may not be up to date on this document. Alwaysverify current medications with the patient. acetaminophen (Tylenol) 500 MG tablet Take 2 (two) tablets by mouth every 6 hours as needed Active famotidine (Pepcid) 10 MG tablet Take 1 (one) tablet by mouth once daily Active fluticasone propionate (Flonase) 50 MCG/ACT nasal spray [place] 1 (one) spray into the nose 2 times daily as needed 5 Active ibuprofen (Motrin) 200 MG tablet Take 1 (one) tablet by mouth every 6 hours as needed Active LORazepam (Ativan) 1 MG tablet TAKE 1/2 TABLET BY MOUTH EVERY 12 HOURS NEEDED FOR ANXIETY 5 Active omeprazole (PriLOSEC) 20 MG capsule Take 1 (one) capsule by mouth once daily 5 Active propranolol (Inderal) 10 MG tablet Take 1 (one) tablet by mouth anxiety 5 Active SUMAtriptan (Imitrex) 50 MG tablet Take 1 (one) tablet by mouth once as needed 5 Active tiZANidine (Zanaflex) 2 MG capsuleIndicati ons:Cervical spondylosis Take 1 (one) capsule by mouth every 8 hours as needed for Muscle Spasms 90 capsule 5 025 Active tiZANidine (Zanaflex) 2 MG capsuleIndicati ons:Cervical spondylosis Take 1 (one) capsule by mouth every 8 hours as needed for Muscle Spasms 90 capsule 5 025 Discontinued Encounters Date Type Department Care Team Description 01/03/2025 10:00 AM CDT Hospital Encounter [facility] [address] [place] [phone] West Michel MD 01/03/2025 Travel 12/18/2024 Travel 12/12/2024 11:30 AM CDT Office Visit [facility] - Pain Management [address] [place] [phone] West Michel MD Cervical spondylosis (Primary Dx); Cervicalgia 11/23/2024 10:30 AM CDT Office Visit [facility] - Neurosurgery [address] [place] [address] [place] [phone] Ilia Gallardo MD Cervicalgia (Primary Dx); Dizziness; Cervical radiculopathy 11/23/2024 Travel 10/19/2024 Travel from Last 3 Months Social History Tobacco Use Types Packs/Day Years Used Date Smoking Tobacco: Never Assessed Comments Unknown Sex and Gender Information Value Date Recorded Sex Assigned at Not on file 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 Gender Identity Not on file Sexual Orientation Not on file Last Filed Vital Signs Vital Sign Reading Time Taken Comments Blood Pressure 125/86 12/12/2024 12:04 PM CDT Pulse 67 01/03/2025 11:15 AM CDT Temperature 36.5 C (97.7 F) 01/03/2025 10:47 AM CDT Respiratory Rate 20 12/12/2024 12:04 PM CDT Oxygen Saturation 100% 01/03/2025 11:15 AM CDT Inhaled Oxygen Concentration - - Weight 74.4 kg (164 lb) 12/12/2024 12:04 PM CDT Height 156.2 cm (5' 1.5) 12/12/2024 12:04 PM CD T Body Mass Index 30.49 12/12/2024 12:04 PM CDT Plan of Treatment Upcoming Encounters Date Type Department Care Team (Late st Contact Info) Description 03/11/2025 10:30 AM CDT Appointment [facility] Neuroscience [address] [address] Health Maintenance Due Date Last Done Comments HIV SCREENING 2007 DTAP/TDAP/TD VACCINES (1 - Tdap) 2011 HEPATITIS B VACCINE (1 of 3 - 19+ 3-dose series) 2011 PAP SMEAR 2013 HPV VACCINE (1 - 3-dose SCDM series) 2019 COVID-19 VACCINE (1 - 2023-2 5 season) 2024 DEPRESSION SCREENING 06/13/2024 INFLUENZA VACCINE (#1) 2025 ZOSTER VACCINE (1 of 2) 2042 HEPATITIS C SCREENING Completed 07/21/2024 HIB VACCINE Aged Out No longer eligi ble based on patient's age to complete this topic MENINGOCOCCAL (Group B) VACC INE SHARED DECISION-MAKING Aged Out No longer eligibl e based on patient's age to complete this topic MENINGOCOCCAL GROUPS A/C/Y/W VACCINE Aged Out No longer eligible b ased on patient's age to complete this topic PNEUMOCOCCAL VACCINE Aged Out No long er eligible based on patient's age to complete this topic Procedures Procedure Name Priority Date/Time Associated Diagnosis Comments PAIN MANAGEMENT PROCEDURE TIME Routine 01/03/2025 11:20 AM CDT Cervical spondylosis without myelopathy from Last 3 Months Results * Pain Management Procedure Time (01/03/2025 [...] supervised the resident/fellow throughout the whole case. us West Reynaga MD DIAGNOSTIC IMAGING ORDERA BLES Final Result from Last 3 Months Insurance [facility] Care Teams Equipment Cleaner And Tester Relationship Specialty Start Date End Date Marlys Urena [id number] [id number] PCP - General Tennis Ball Coverer Hand 10/19/24
--- OUTSIDE RECORDS SUMMARY | 2025-01-03 13:07 | XMS_ITS | Referral Summary ---
Author Organization [facility] Virtual Care Address [address] [place] [address] Phone Care Team Providers Care Chief Service Observer Name Role Phone Marlys Urena NP Primary Care Provider [phone] Encounters Date Type Department Care Team Description 12/24/2024 Telephone [facility] Scheduling [address] [place] [address] Alisha Fisher 12/13/2024 Results Follow-Up [facility] Allergy and Immunology [facility] [address] [phone] Briana Michelle MD Strep pneumoniae antibody serotypes 12/10/2024 2:59 PM CDT - 12/10/2024 11:59 PM CDT Hospital Encounter [facility] [address] [place] [address] Chronic sinusitis, unspecified location; Persistent asthma without complication, unspecified asthma severity Discharge Disposition: Discharge to home or self care 12/10/2024 2:50 PM CDT Lab [facility] Infectious Diseases [address] [place] [address] [address] [place] [phone] 12/10/2024 1:00 PM CDT Office Visit [facility] Allergy and Immunology [address] [place] [address] [address] [place] [phone] Briana Michelle MD Persistent asthma without complication, unspecified asthma severity (Primary Dx); Chronic sinusitis, unspecified location 10/24/2024 Telephone [facility] Ophthalmology [facility] [place] [address] Dana Rodriguez OD fyi from Last 3 Months Allergies No known active allergies Medications acetaminophen [...] mg total) by mouth daily as needed Active cyanocobalamin, vitamin B-12, 1,000 mcg/mL drops Take 2 Pump by mouth daily Active cholecalciferol , vitamin D3, (VITAMIN D3 ORAL) Take 4,000 Units by mouth daily Active Active Problems Problem Noted Date Diagnosed Date 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/10/2024 Anxiety 07/09/2024 Social History Tobacco Use Types Packs/Day Years [...] on file Legal Sex Female 8:03 PM 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 OF 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 Gender Identity Not on file Sexual Orientation Not on file Last Filed Vital Signs Vital Sign Reading Time Taken Comments Blood Pressure 131/89 12/10/2024 1:01 PM CDT Pulse 101 12/10/2024 1:01 PM CDT Temperature 36.8 C (98.2 F) 12/10/2024 1:01 PM CDT Respiratory Rate 18 07/18/2024 9:49 PM 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 OF HOSPICE Oxygen Saturation 99% 12/10/2024 1:01 PM CDT Inhaled Oxygen Concentration - - Weight 76.8 kg (169 lb 6.4 oz) 12/10/2024 1:01 P M CDT Height 154.9 cm (5' 1) 12/10/2024 1:01 PM CDT Body Mass Index 32.01 12/10/2024 1:01 PM CDT Plan of Treatment Not on file Procedures Procedure Name Priority Date/Time Associated Diagnosis Comments BLOOD MISC TO OVERTON Routine 12/10/2024 6: 33 PM CDT DIFFERENTIAL [...] without complication, unspecified asthma severity ALLERGEN SYCAMORE GUYANESE (TREE) IGE Routine 12/10/2024 2:59 PM CDT [...] without complication, unspecified asthma severity ALLERGEN PLANTAIN AZERI (WEED) IGE Routine 12/10/2024 2:59 PM CDT [...] without complication, unspecified asthma severity ALLERGEN COCKROACH GUYANESE (INSECT) IGE Routine 12/10/2024 2:59 PM CDT [...] 3 Months Results * BLOOD MISC TO OVERTON (12/10/2024 6:33 PM CDT) Test name, chem TTIGS [facility] Misc See Footnote LAZARUS FISHER Comment: Test Result Flag Unit RefValue Tetanus Toxoid IgG Ab, S Tetanus IgG Ab Positive REFERENCE VALUE Vaccinated: Positive (>= 0.01 IU/mL) Unvaccinated: Negative (< 0.01 IU/mL) Tetanus IgG Value 0.73 IU/mL ADDITIONAL INFORMATION This test was developed and its performance characteristics determined by [facility] in a manner consistent with CLIA requirements. This test has not been cleared or approved by the U.S. Food and Drug Administration. Test Performed by: [facility] [address] [place] [id number] [employer] Up Machine Operator: Kareem Miranda Ph.D.; CLIA# [id number] Blood 12/10/2024 6:33 PM CDT 12/11/2024 8:31 AM CDT Narrative LAZARUS FISHER - 12/14/2024 2:17 PM CDT TETANUS IgG Briana Michelle MD LAB BLOOD ORDERABLES Final Result Performing Organization Address [facility] de Phone Number LAZARUS FISHER [address] [address] [place] [address] [facility] * Allergen Rat mix (animal) IgE (12/10/2024 2:59 PM CDT) [facility] Rat mix IgE <0.10 0.00 - 0.34 kUnits/L Comment:Testing performed by : [facility], [address] [place]., [address] Blood 12/10/2024 2:59 PM CDT 12/11/2024 10:17 AM CDT Briana Michelle MD LAB BLOOD ORDERABLES Final Result LAZARUS [address] [address] Department of [employer] [place] [address] * Allergen Mouse mix (animal) IgE (12/10/2024 2:59 PM CDT) Mouse mix IgE <0.10 0.00 - 0.34 kUnits/L Comment:Testing performed by : [facility], [address] [place]., [address] Blood 12/10/2024 2:59 PM CDT 12/11/2024 10:17 AM CDT Briana Michelle MD LAB BLOOD ORDERABLES Final Result Performing Organization Address [facility] de Phone Number LAZARUS [address] [address] [place] [address] * Differential, auto (12/10/2024 2:59 PM CDT) Pathologist [facility] Neutrophil abs 4.93 1.50 - 6.50 K/cumm Imm gran abs 0.02 0.00 - 0.10 K/cumm [facility] Lymphocyte abs 2.14 0.80 - 3.30 K/cumm [facility] Monocyte abs 0.32 0.20 - 0.80 K/cumm [facility] Eosinophil abs 0.04 0.00 - 0.50 K/cumm [facility] Basophil abs 0.04 0.00 - 0.10 K/cumm [facility] Neutrophil pct 65.8 % [facility] Comment: Interpretive Data Percent cell count reference ranges are not reported, since discordance with absolute values may lead to misinterpretation of CBC data. Current Interpretive Data was last revised on 2017. Imm gran pct 0.3 % [facility] Comment: Interpretive Data Percent cell count reference ranges are not reported, since discordance with absolute values may lead to misinterpretation of CBC data. Current Interpretive Data was last revised on 2017. Lymphocyte pct 28.6 % [facility] Comment: Interpretive Data Percent cell count reference ranges are not reported, since discordance with absolute values may lead to misinterpretation of CBC data. Current Interpretive Data was last revised on 2017. Monocyte pct 4.3 % [facility] Comment: Interpretive Data Percent cell count reference ranges are not reported, since discordance with absolute values may lead to misinterpretation of CBC data. Current Interpretive Data was last revised on 2017. Eosinophil pct 0.5 % [facility] Comment: Interpretive Data Percent cell count reference ranges are not reported, since discordance with absolute values may lead to misinterpretation of CBC data. Current Interpretive Data was last revised on 2017. Basophil pct 0.5 % [facility] Comment: Interpretive Data Percent cell count reference ranges are not reported, since discordance with absolute values may lead to misinterpretation of CBC data. Current Interpretive Data was last revised on 2017. Blood 12/10/2024 2:59 PM CDT 12/10/2024 7:23 PM CDT Briana Michelle MD LAB BLOOD ORDERABLES Final Result [facility] [address] [address] [place] [address] * Immune competence (12/10/2024 2:59 PM CDT) CD3 pct 79 60 - 88 % Comment:Testing performed by : [facility], [address] [place] [address]., [address] CD3 Absolute 1,447 661 - 1,963 cells/mcL [facility] Comment:Testing performed by : [facility], [address] [place]., [address] CD4 pct 41 31 - 64 % [facility] Comment:Testing performed by : [facility], [address] [place]., [address] CD4 Absolute 736 365 - 1,294 cells/mcL [facility] Comment:Testing performed by : [facility], [address] [place]., [address] CD8 pct 36 12 - 40 % [facility] Comment:Testing performed by : [facility], [address] [place]., [address] CD8 Absolute 646 187 - 781 cells/mcL [facility] Comment:Testing performed by : [facility], [address] [facility], [address] CD19 pct 17 6 - 25 % [facility] Comment:Testing performed by : [facility], [address] [place]., [address] CD19 Absolute 314 86 - 488 cells/mcL [facility] Comment:Testing performed by : [facility], [address] [facility], [address] [id number] pct 5 5 - 25 % [facility] Comment:Testing performed by : [facility], [address] [facility], [address] [id number] Absolute 92 76 - 467 cells/mcL [facility] Comment:Testing performed by : [facility], [address] [facility], [address] CD4/CD8 ratio 1.1 [facility] Comment:Testing performed by : [facility], [address] [facility], [address] Blood 12/10/2024 2:59 PM CDT 12/10/2024 10:22 PM CDT Briana Michelle MD LAB BLOOD ORDERABLES Final Result LAZARUS [address] [address] [place] [address] * Allergen Penicillium chrysogenum (mold) IgE (12/10/2024 2:59 PM CDT) Penicillium chrysogenum IgE <0.10 0.00 - 0.34 kUnits/L Comment:Testing performed by : [facility], [address] [place]., [address] Blood 12/10/2024 2:59 PM CDT 12/11/2024 10:17 AM CDT Brinaa Michelle MD LAB BLOOD ORDERABLES Final Result Performing Organization Address [facility] Co de Phone Number LAZARUS FISHER [address] [address] [place] [facility] [employer] [place] [address] * Allergen [place] (tree) IgE (12/10/2024 2:59 PM CDT) [place] IgE <0.10 0.00 - 0.34 kUnits/L Comment:Testing performed by : [facility], [address] [place]., [address] Blood 12/10/2024 2:59 PM CDT 12/11/2024 10:17 AM CDT Briana Michelle MD LAB BLOOD ORDERABLES Final Result Performing Organization Address [facility] de Phone Number LAZARUS FISHER [address] [address] [place] Department [employer] [place] [address] * Allergen Mountain juniper (tree) IgE (12/10/2024 2:59 PM CDT) Pathologist [facility] Mountain junbret IgE <0.10 0.00 - 0.34 kUnits/L Comment:Testing performed by : [facility], [address] [place] [address]., [address] Blood 12/10/2024 2:59 PM CDT 12/11/2024 10:17 AM CDT Briana Michelle MD LAB BLOOD ORDERABLES Final Result Performing Organization Address [facility] Co de Phone Number LAZARUS [address] [address] [facility] [facility] [employer] [place] [address] * (ABNORMAL) CBC with auto [...] NRBC abs 0.00 0.00 - 0.01 K/cumm [facility] Blood 12/10/2024 2:59 PM CDT 12/10/2024 7:23 PM CDT Briana Michelle MD LAB BLOOD ORDERABLES Final Result CERR[facility] [address] [address] [place] Department [place] [address] * Strep pneumoniae antibody serotypes (12/10/2024 2:59 PM CDT) S. pneumo Type 1 (1) 0.2 >=1.0 mcg/mL [facility] S. pneumo Type 2 (2) [...] developed and its performance characteristics determined by [facility] in a manner consistent with CLIA requirements. This test has not been cleared or approved by the U.S. Food and Drug Administration. Test Performed by: [facility] [address] [place] [address] Breaker Up Machine Operator: Kareem Miranda Ph.D.; CLIA# [id number] Blood 12/10/2024 2:59 PM CDT 12/10/2024 7:23 PM CDT Briana Michelle MD LAB BLOOD ORDERABLES Final Result Performing Organization Address [facility]/ZIP Co de Phone Number MARGARITARADHA FISHER [address] [address] [email or web address] [address] [facility] * Allergen Bermuda grass (grass) IgE (12/10/2024 2:59 PM CDT) Bermuda grass IgE <0.10 0.00 - 0.34 kUnits/L Comment:Testing performed by : [facility], [address] [place]., [address] Blood 12/10/2024 2:59 PM CDT 12/11/2024 10:17 AM CDT Briana Michelle MD LAB [place] [address] [address] [email or web address] [address] * Allergen Plantain pitcairn islander (weed) IgE (12/10/2024 2:59 PM CDT) Pathologist [facility] Plantain pitcairn islander IgE <0.10 0.00 - 0.34 kUnits/L Comment:Testing performed by : [facility], [address] [place] [address]., [address] Blood 12/10/2024 2:59 PM CDT 12/11/2024 10:17 AM CDT Briana Michelle MD LAB BLOOD ORDERABLES Final Result Performing Organization Address [facility]/ZIP Co de Phone Number LAZARUS [address] [address] [place] [facility] [employer] [place] [address] * Allergen Elm (tree) IgE (12/10/2024 2:59 PM CDT) Elm IgE <0.10 0.00 - 0.34 kUnits/L Comment:Testing performed by : [facility], [address] [place] [address]., [address] Blood 12/10/2024 2:59 PM CDT 12/11/2024 10:17 AM CDT Briana Michelle MD LAB BLOOD ORDERABLES Final Result Performing Organization Address [facility]/ZIP Co de Phone Number LAZARUS [address] [address] [place] [facility] [employer] [place] [address] * Allergen Cladosporium herbarum (mold) IgE (12/10/2024 2:59 PM CDT) Cladosporium herbarum IgE <0.10 0.00 - 0.34 kUnits/L Comment:Testing performed by : [facility], [address] [place] [address]., [address] Blood 12/10/2024 2:59 PM CDT 12/11/2024 10:17 AM CDT Briana Michelle MD LAB BLOOD ORDERABLES Final Result LAZARUS [address] [address] [facility] [employer] [place] [address] * Allergen Birch common silver (tree) IgE (12/10/2024 2:59 PM CDT) Birch common silver IgE <0.10 0.00 - 0.34 kUnits/L Comment:Testing performed by : [facility], [address] [place] [address]., [address] Blood 12/10/2024 2:59 PM CDT 12/11/2024 10:17 AM CDT Briana Michelle MD LAB BLOOD ORDERABLES Final Result LAZARUS [address] [address] Department [employer] [place] [address] * Allergen Alternaria tenuis (mold) IgE (12/10/2024 2:59 PM CDT) Alternaria tenius IgE <0.10 0.00 - 0.34 kUnits/L Comment:Testing performed by : [facility], [address] [place] [address]., [address] Blood 12/10/2024 2:59 PM CDT 12/11/2024 10:17 AM CDT Briana Michelle MD LAB BLOOD ORDERABLES Final Result MARGARITARADHA [address] [address] Department of [employer] [place] [address] * Allergen Aspergillus fumigatus (mold) IgE (12/10/2024 2:59 PM CDT) Aspergillus fumigatus IgE <0.10 0.00 - 0.34 kUnits/L Comment:Testing performed by : [facility], [address] [place] [address]., [address] Blood 12/10/2024 2:59 PM CDT 12/11/2024 10:17 AM CDT Briana Michelle MD LAB BLOOD ORDERABLES Final Result Performing Organization Address [facility]/ZIP Co de Phone Number LAZARUS FISHER [address] [address] [facility] [employer] [place] [address] * Allergen Dermatophagoides pteronyssinus (insect) IgE (12/10/2024 2:59 PM CDT) Dermatophyton pteronyssinus IgE <0.10 0.00 - 0.34 kUnits/L Comment:Testing performed by : [facility], [address] [place] [address]., [address] Blood 12/10/2024 2:59 PM CDT 12/11/2024 10:17 AM CDT Briana Michelle MD LAB BLOOD ORDERABLES Final Result Performing Organization Address [facility] Co de Phone Number LAZARUS FISHER [address] [address] [facility] [employer] [place] [address] * Allergen Dermatophagoides farniae (insect) IgE (12/10/2024 2:59 PM CDT) Dermatophyton farinae IgE <0.10 0.00 - 0.34 kUnits/L Comment:Testing performed by : [facility], [address] [place] [address]., [address] Blood 12/10/2024 2:59 PM CDT 12/11/2024 10:17 AM CDT Briana Michelle MD LAB BLOOD ORDERABLES Final Result Performing Organization Address [facility]/ZIP Co de Phone Number LAZARUS FISHER [address] [address] [facility] [employer] [place], [place] [id number] * Allergen Epithelia/dander dog (animal) IgE (12/10/2024 2:59 PM CDT) Dog dander IgE <0.10 0.00 - 0.34 kUnits/L Comment:Testing performed by : [facility], [address] [place]., [address] Blood 12/10/2024 2:59 PM CDT 12/11/2024 10:17 AM CDT Briana Michelle MD LAB BLOOD ORDERABLES Final Result Performing Organization Address [facility] Co de Phone Number LAZARUS [address] [address] [place] [facility] [employer] [place] [address] * Allergen Cockroach cymraes (insect) IgE (12/10/2024 2:59 PM CDT) Cockroach IgE <0.10 0.00 - 0.34 kUnits/L Comment:Testing performed by : [facility], [address] [place] [address]., [address] Blood 12/10/2024 2:59 PM CDT 12/11/2024 10:17 AM CDT Briana Michelle MD LAB BLOOD ORDERABLES Final Result Performing Organization Address [facility] de Phone Number MARGARITARADHA [address] [address] [facility] [employer] [place] [address] * Allergen Epithelia/dander cat (animal) IgE (12/10/2024 2:59 PM CDT) Cat dander IgE <0.10 0.00 - 0.34 kUnits/L Comment:Testing performed by : [facility], [address] [place] [address]., [address] Blood 12/10/2024 2:59 PM CDT 12/11/2024 10:17 AM CDT Briana Michelle MD LAB BLOOD ORDERABLES Final Result Performing Organization Address [facility] Co de Phone Number MARGARITARADHA [address] [address] [place] [facility] [employer] [place] [address] * Allergen Ragweed short/common (weed) IgE (12/10/2024 2:59 PM CDT) Ragweed common IgE <0.10 0.00 - 0.34 kUnits/L Comment:Testing performed by : [facility], [address] [place] [address]., [address] Blood 12/10/2024 2:59 PM CDT 12/11/2024 10:17 AM CDT Briana Michelle MD LAB BLOOD ORDERABLES Final Result LAZARUS FISHER [address] [address] [facility] [employer] [place] [address] * Allergen Pigweed, rough (weed) IgE (12/10/2024 2:59 PM CDT) Pigweed rough IgE <0.10 0.00 - 0.34 kUnits/L Comment:Testing performed by : [facility], [address] [place] [address]., [address] Blood 12/10/2024 2:59 PM CDT 12/11/2024 10:17 AM CDT Briana Michelle MD LAB BLOOD ORDERABLES Final Result MARGARITARADHA FISHER [address] [address] Department of [employer] [place] [address] * Allergen Nettle (weed) IgE (12/10/2024 2:59 PM CDT) Nettle IgE <0.10 0.00 - 0.34 kUnits/L Comment:Testing performed by : [facility], [address] [place] [address]., [address] Blood 12/10/2024 2:59 PM CDT 12/11/2024 10:17 AM CDT Briana Michelle MD LAB BLOOD ORDERABLES Final Result Performing Organization Address [facility] Co de Phone Number LAZARUS [address] [address] [facility] [employer] [place] [address] * Allergen Fagan's quarter (weed) IgE (12/10/2024 2:59 PM CDT) Fagan's quarters IgE <0.10 0.00 - 0.34 kUnits/L Comment:Testing performed by : [facility], [address] [place] [address]., [id number] Blood 12/10/2024 2:59 PM CDT 12/11/2024 10:17 AM CDT Briana Michelle MD LAB BLOOD ORDERABLES Final Result Performing Organization Address [facility] Co de Phone Number MARGARITARADHA [address] [address] [facility] [employer] [place] [address] * Allergen Navid grass (grass) IgE (12/10/2024 2:59 PM CDT) [facility] Navid grass IgE <0.10 0.00 - 0.34 kUnits/L Comment:Testing performed by : [facility], [address] [place] [address]., [address] Blood 12/10/2024 2:59 PM CDT 12/11/2024 10:17 AM CDT Briana Michelle MD LAB BLOOD ORDERABLES Final Result Performing Organization Address [facility] Co de Phone Number LAZARUS [address] [address] [facility] [employer] [place] [address] * Allergen Perez grass (grass) IgE (12/10/2024 2:59 PM CDT) Pathologist [facility] Perez grass IgE <0.10 0.00 - 0.34 kUnits/L Comment:Testing performed by : [facility], [address] [place] [address]., [address] Blood 12/10/2024 2:59 PM CDT 12/11/2024 10:17 AM CDT Briana Michelle MD LAB BLOOD ORDERABLES Final Result LAZARUS [address] [address] [place] [facility] [employer] [place] [address] * Allergen Social Circle (tree) IgE (12/10/2024 2:59 PM CDT) Social Circle (tree) IgE <0.10 0.00 - 0.34 kUnits/L Comment:Testing performed by : [facility], [address] [place] [address]., [address] Blood 12/10/2024 2:59 PM CDT 12/11/2024 10:17 AM CDT Briana Michelle MD LAB BLOOD ORDERABLES Final Result Performing Organization Address [facility]/ZIP Co de Phone Number LAZARUS [address] [address] [place] [facility] [employer] [place] [address] * Allergen Baker cymraes (tree) IgE (12/10/2024 2:59 PM CDT) Baker IgE <0.10 0.00 - 0.34 kUnits/L Comment:Testing performed by : [facility], [address] [place] [address]., [address] Blood 12/10/2024 2:59 PM CDT 12/11/2024 10:[address] [facility] Briana Michelle MD LAB BLOOD ORDERABLES Final Result LAZARUS [address] [address] a[address] Department [employer] [place] [address] * Allergen Maple/Box elder (tree) IgE (12/10/2024 2:59 PM CDT) Maple/box elder IgE <0.10 0.00 - 0.34 kUnits/L Comment:Testing performed by : [facility], [address] [place] [address]., [id number] Blood 12/10/2024 2:59 PM CDT 12/11/2024 10:17 AM CDT Briana Michelle MD LAB BLOOD ORDERABLES Final Result Performing Organization Address [facility]/ZIP Co de Phone Number MARGARITARADHA [address] [address] Department [employer] [place] [address] * Allergen Okarche red (tree) IgE (12/10/2024 2:59 PM CDT) Okarche IgE <0.10 0.00 - 0.34 kUnits/L Comment:Testing performed by : [facility], [address] [place] [address]., [address] Blood 12/10/2024 2:59 PM CDT 12/11/2024 10:17 AM CDT Briana Michelle MD LAB BLOOD ORDERABLES Final Result Performing Organization Address [facility] Co de Phone Number LAZARUS [address] [address] Department of [employer] [place] [address] * IgE (12/10/2024 2:59 PM CDT) IgE 10 <=100 IUnits/mL Comment:Testing performed by : [facility], [address] [place] [address], [place]., [address] Blood 12/10/2024 2:59 PM CDT 12/11/2024 10:30 AM CDT Briana Michelle MD LAB BLOOD ORDERABLES Final Result LAZARUS FISHER [address] [address] [facility] [employer] [place] [address] * IgA (12/10/2024 2:59 PM CDT) Immunoglobulin A 239 70 - 400 mg/dL Blood 12/10/2024 2:59 PM CDT 12/10/2024 7:23 PM CDT Briana Michelle MD LAB BLOOD ORDERABLES Final Result Performing Organization Address [facility] Co de Phone Number LAZARUS FISHER [address] [address] Department [employer] [place], [place] [id number] * IgM (12/10/2024 2:59 PM CDT) Immunoglobulin M 131 40 - 150 mg/dL Blood 12/10/2024 2:59 PM CDT 12/10/2024 7:23 PM CDT Briana Michelle MD LAB BLOOD ORDERABLES Final Result Performing Organization Address [facility] Co de Phone Number LAZARUS FISHER [id number] Department [employer] [place], [place] [id number] * IgG (12/10/2024 2:59 PM CDT) Immunoglobulin G 963 700 - 1,600 mg/dL Blood 12/10/2024 2:59 PM CDT 12/10/2024 7:23 PM CDT Briana Michelle MD LAB BLOOD ORDERABLES Final Result Performing Organization Address [facility] Co de Phone Number LAZARUS FISHER [phone] [facility] [employer] [place] [address] * SCAN - LABS (12/10/2024) us Provider Scanning Final Result from Last 3 Months Insurance [facility] Care Teams Chief Service Observer Relationship Specialty Start Date End Date Marlys Urena NP [phone] [place] [address] PCP - General Education Officer 07/19/24
== END 2025-01-03 13:05 | disposition home or self-care (01) ==
PROVIDERS: PCP Nurse Practitioner Family; Visit Provider Internal Medicine Hematology & Oncology
DX: E83.19 Other disorders of iron metabolism (principal)
CPT/HCPCS: 81256

== ENCOUNTER 2025-01-08 14:25 | Outpatient (CLI) | payer OTHER, SELFPAY ==
--- OUTSIDE RECORDS SUMMARY | 2025-01-08 14:33 | XMS_ITS | Clinical Summary ---
Author Organization [facility] Virtual Care Address [facility] [place] [address] Phone Care Team Providers Care Cupola Man Name Role Phone Marlys Urena NP Primary Care Provider [phone] Allergies No known active allergies Medications acetaminophen [...] Type Department Care Team Description 12/24/2024 Telephone [facility] Scheduling [address] [place] [address] Alisha Fisher 12/13/2024 Results Follow-Up [facility] Allergy and Immunology [address] [facility] [address] [place] [id number] Briana Michelle MD Strep pneumoniae antibody serotypes 12/10/2024 2:59 PM CDT - 12/10/2024 11:59 PM CDT Hospital Encounter [facility] [address] [place] [address] Chronic sinusitis, unspecified location; Persistent asthma without complication, unspecified asthma severity Discharge Disposition: Discharge to home or self care 12/10/2024 2:50 PM CDT Lab [facility] Infectious Diseases [address] [facility] [address] [place] [phone] 12/10/2024 1:00 PM CDT Office Visit [facility] Allergy and Immunology [address] [facility] [address] [place] [phone] Briana Michelle MD Persistent asthma without complication, unspecified asthma severity (Primary Dx); Chronic sinusitis, unspecified location 10/24/2024 Telephone [facility] Ophthalmology [address] [place] [address] Dana Rodriguez, JOSS joshii from Last 3 [...] on file Legal Sex Female 8:03 PM HONEY EXTRACTOR Gender Identity Not on file Sexual Orientation Not on file Obstetrics History Last Filed Vital Signs Vital Sign Reading Time Taken Comments Blood Pressure 131/89 12/10/2024 1:01 PM CDT Pulse 101 12/10/2024 1:01 PM CDT Temperature 36.8 C (98.2 F) 12/10/2024 1:01 PM CDT Respiratory Rate 18 07/18/2024 9:49 PM HONEY EXTRACTOR Oxygen Saturation 99% 12/10/2024 1:01 PM CDT [...] <65 (1 of 2 - PCV) 2011 HPV Vaccines (1 - 3-dose SCD M series) 2019 Influenza Vaccine (#1) 2025 DTaP/Tdap/Td Vaccine (6 - Td or Tdap) 06/16/2027 06/16/2017, 02/25/1994, 02/02/1993, Additional history exists Procedures Procedure Name Priority Date/Time Associated Diagnosis Comments BLOOD MISC TO [place] Routine 12/10/2024 6: 33 PM CDT DIFFERENTIAL [...] without complication, unspecified asthma severity ALLERGEN SYCAMORE HUNGARIAN (TREE) IGE Routine 12/10/2024 2:59 PM CDT [...] without complication, unspecified asthma severity ALLERGEN PLANTAIN GUAMANIAN (WEED) IGE Routine 12/10/2024 2:59 PM CDT [...] without complication, unspecified asthma severity ALLERGEN COCKROACH HUNGARIAN (INSECT) IGE Routine 12/10/2024 2:59 PM CDT [...] 3 Months Results * BLOOD MISC TO [place] (12/10/2024 6:33 PM CDT) Test name, chem [facility] [place] ref Lab Misc See Footnote LAZARUS FISHER Comment: Test Result Flag Unit RefValue Tetanus Toxoid IgG Ab, S Tetanus IgG Ab Positive REFERENCE VALUE Vaccinated: Positive (>= 0.01 IU/mL) Unvaccinated: Negative (< 0.01 IU/mL) Tetanus IgG Value 0.73 IU/mL ADDITIONAL INFORMATION This test was developed and its performance characteristics determined by [facility] in a manner consistent with CLIA requirements. This test has not been cleared or approved by the U.S. Food and Drug Administration. Test Performed by: [facility] [place] [place] [address] Handle Rounder Operator: Kareem Miranda Ph.D.; CLIA# [id number] Blood 12/10/2024 6:33 PM CDT 12/11/2024 8:31 AM CDT Narrative LAZARUS FISHER - 12/14/2024 2:17 PM CDT TETANUS IgG us Briana Michelle MD LAB BLOOD ORDERABLES Final Result LAZARUS [address] Department [place] [address] [place] [facility] * Allergen Rat mix (animal) IgE (12/10/2024 2:59 PM CDT) Pathologist [facility] Rat mix IgE <0.10 0.00 - 0.34 kUnits/L Comment:Testing performed by : [facility], [address] [place] [address]., [id number] Blood 12/10/2024 2:59 PM CDT 12/11/2024 10:17 AM CDT Briana Michelle MD LAB BLOOD ORDERABLES Final Result LAZARUS [address] [place] [address] * Allergen Mouse mix (animal) IgE (12/10/2024 2:59 PM CDT) [facility] Mouse mix IgE <0.10 0.00 - 0.34 kUnits/L Comment:Testing performed by : [facility], [address] [place] [address], [place]., [address] Blood 12/10/2024 2:59 PM CDT 12/11/2024 10:17 AM CDT Briana Michelle MD LAB BLOOD ORDERABLES Final Result LAZARUS FISHER [address] [place] [address] * Differential, auto (12/10/2024 2:59 PM CDT) Pathologist [facility] Neutrophil abs 4.93 1.50 - 6.50 K/cumm Imm gran abs 0.02 0.00 - 0.10 K/cumm [facility] Lymphocyte abs 2.14 0.80 - 3.30 K/cumm [facility] Monocyte abs 0.32 0.20 - 0.80 K/cumm [facility] Eosinophil abs 0.04 0.00 - 0.50 K/cumm [facility] Basophil abs 0.04 0.00 - 0.10 K/cumm [facility] Neutrophil pct 65.8 % [facility] Comment: Interpretive Data Percent cell count reference ranges are not reported, since discordance with absolute values may lead to misinterpretation of CBC data. Current Interpretive Data was last revised on 2017. Imm gran pct 0.3 % [facility] Comment: Interpretive Data Percent cell count reference ranges are not reported, since discordance with absolute values may lead to misinterpretation of CBC data. Current Interpretive Data was last revised on 2017. Lymphocyte pct 28.6 % [facility] Comment: Interpretive Data Percent cell count reference ranges are not reported, since discordance with absolute values may lead to misinterpretation of CBC data. Current Interpretive Data was last revised on 2017. Monocyte pct 4.3 % [facility] Comment: Interpretive Data Percent cell count reference ranges are not reported, since discordance with absolute values may lead to misinterpretation of CBC data. Current Interpretive Data was last revised on 2017. Eosinophil pct 0.5 % [facility] Comment: Interpretive Data Percent cell count reference ranges are not reported, since discordance with absolute values may lead to misinterpretation of CBC data. Current Interpretive Data was last revised on 2017. Basophil pct 0.5 % [facility] Comment: Interpretive Data Percent cell count reference ranges are not reported, since discordance with absolute values may lead to misinterpretation of CBC data. Current Interpretive Data was last revised on 2017. Blood 12/10/2024 2:59 PM CDT 12/10/2024 7:23 PM CDT us Briana Michelle MD LAB BLOOD ORDERABLES Final Result LAZARUS [address] Department [place] [address] * Immune competence (12/10/2024 2:59 PM CDT) CD3 pct 79 60 - 88 % Comment:Testing performed by : [facility], [address] [place]., [address] CD3 Absolute 1,447 661 - 1,963 cells/mcL [facility] Comment:Testing performed by : [facility], [address] [facility], [address] CD4 pct 41 31 - 64 % [facility] Comment:Testing performed by : [facility], [address] [facility], [address] CD4 Absolute 736 365 - 1,294 cells/mcL [facility] Comment:Testing performed by : [facility], [address] [facility], [address] CD8 pct 36 12 - 40 % [facility] Comment:Testing performed by : [facility], [address] [facility], [address] CD8 Absolute 646 187 - 781 cells/mcL [facility] Comment:Testing performed by : [facility], [address] [facility], [address] CD19 pct 17 6 - 25 % [facility] Comment:Testing performed by : [facility], [address] [facility], [address] CD19 Absolute 314 86 - 488 cells/mcL [facility] Comment:Testing performed by : [facility], [address] [facility], [address] [id number] pct 5 5 - 25 % [facility] Comment:Testing performed by : [facility], [address] [facility], [address] [id number] Absolute 92 76 - 467 cells/mcL [facility] Comment:Testing performed by : [facility], [address] [facility], [address] CD4/CD8 ratio 1.1 [facility] Comment:Testing performed by : [facility], [address] [facility], [address] Blood 12/10/2024 2:59 PM CDT 12/10/2024 10:22 PM CDT us Briana Michelle MD LAB BLOOD ORDERABLES Final Result Performing Organization Address [facility] Co de Phone Number [facility] [address] [address] [facility] [place] [address] * Allergen Penicillium chrysogenum (mold) IgE (12/10/2024 2:59 PM CDT) Penicillium chrysogenum IgE <0.10 0.00 - 0.34 kUnits/L Comment:Testing performed by : [facility], [address] [place] [address]., [address] Blood 12/10/2024 2:59 PM CDT 12/11/2024 10:17 AM CDT Briana Michelle MD LAB BLOOD ORDERABLES Final Result Performing Organization Address [facility] Co de Phone Number [facility] [address] [address] [facility] [place] [address] * Allergen Somerset (tree) IgE (12/10/2024 2:59 PM CDT) [place] IgE <0.10 0.00 - 0.34 kUnits/L Comment:Testing performed by : [facility], [address] [place] [address]., [address] Blood 12/10/2024 2:59 PM CDT 12/11/2024 10:17 AM CDT Briana Michelle MD LAB BLOOD ORDERABLES Final Result Performing Organization Address [facility] Co de Phone Number [facility] [address] [address] [facility] [place] [address] * Allergen Mountain juniper (tree) IgE (12/10/2024 2:59 PM CDT) Mountain juniper IgE <0.10 0.00 - 0.34 kUnits/L Comment:Testing performed by : [facility], [address] [place] [address], [place]., [address] Blood 12/10/2024 2:59 PM CDT 12/11/2024 10:17 AM CDT Briana Michelle MD LAB BLOOD ORDERABLES Final Result Performing Organization Address City/[facility]/ZIP Co de Phone Number LAZARUS FISHER [address] [facility] [place], [place] [id number] * (ABNORMAL) CBC with auto differential (12/10/2024 2:59 PM CDT) WBC 7.49 3.80 - 9.90 K/cumm Hgb 14.0 11.9 - 15.5 g/dL [facility] Hct 43.5 35.6 - 45.5 % [facility] Plt 205 150 - 400 K/cumm [facility] MPV 12.8(H) 9.1 - 12.3 fL [facility] RBC 5.02 3.90 - 5.20 M/cumm [facility] MCV 86.7 81.3 - 96.4 fL [facility] MCH 27.9 27.1 - 33.3 pg [facility] MCHC 32.2(L) 32.3 - 35.7 g/dL [facility] RDW CV 13.1 11.1 - 14.9 % [facility] RDW SD 40.6 35.7 - 48.1 fL [facility] NRBC abs 0.00 0.00 - 0.01 K/cumm [facility] Blood 12/10/2024 2:59 PM CDT 12/10/2024 7:23 PM CDT Briana Michelle MD LAB BLOOD ORDERABLES Final Result Performing Organization Address City/[facility]/ZIP Co de Phone Number LAZARUS FISHER [address] Department [place] [address] * Strep pneumoniae antibody serotypes [...] developed and its performance characteristics determined by [facility] in a manner consistent with CLIA requirements. This test has not been cleared or approved by the U.S. Food and Drug Administration. Test Performed by: [place] [address] Handle Rounder Operator: Kareem Miranda Ph.D.; CLIA# [id number] Blood 12/10/2024 2:59 PM CDT 12/10/2024 7:23 PM CDT us Briana Michelle MD LAB BLOOD ORDERABLES Final Result LAZARUS FISHER [address] Department [place] [address] [place] ref [facility] * Allergen Berm[place] grass (grass) IgE (12/10/2024 2:59 PM CDT) [facility] Bermuda grass IgE <0.10 0.00 - 0.34 kUnits/L Comment:Testing performed by : [facility], [address] [place]., [address] Blood 12/10/2024 2:59 PM CDT 12/11/2024 10:17 AM CDT Result [facility] Briana Michelle MD LAB BLOOD ORDERABLES Final Result Performing Organization Address [facility] Co de Phone Number LAZARUS [address] [address] [place] [address] * Allergen Plantain portuguese (weed) IgE (12/10/2024 2:59 PM CDT) Plantain portuguese IgE <0.10 0.00 - 0.34 kUnits/L Comment:Testing performed by : [facility], [address] [place] [address]., [address] Blood 12/10/2024 2:59 PM CDT 12/11/2024 10:17 AM CDT Result [facility] Briana Michelle MD LAB BLOOD ORDERABLES Final Result Performing Organization Address [facility] Co de Phone Number [facility] [address] [address] [facility] [place] [address] * Allergen Elm (tree) IgE (12/10/2024 2:59 PM CDT) Elm IgE <0.10 0.00 - 0.34 kUnits/L Comment:Testing performed by : [facility], [address] [place] [address], [place]., [address] Blood 12/10/2024 2:59 PM CDT 12/11/2024 10:17 AM CDT Result [facility] Briana Michelle MD LAB BLOOD ORDERABLES Final Result Performing Organization Address City/[facility] Co de Phone Number [facility] [address] [address] [place] [address] * Allergen Cladosporium herbarum (mold) IgE (12/10/2024 2:59 PM CDT) Cladosporium herbarum IgE <0.10 0.00 - 0.34 kUnits/L Comment:Testing performed by : [facility], [address] [place] [address]., [address] Blood 12/10/2024 2:59 PM CDT 12/11/2024 10:17 AM CDT Briana Michelle MD LAB BLOOD ORDERABLES Final Result Performing Organization Address [facility] Co de Phone Number [facility] [address] [address] [place] [address] * Allergen Birch common silver (tree) IgE (12/10/2024 2:59 PM CDT) Birch common silver IgE <0.10 0.00 - 0.34 kUnits/L Comment:Testing performed by : [facility], [address] [place] [address]., [address] Blood 12/10/2024 2:5 9 PM CDT 12/11/2024 10:17 AM CDT Result [facility] Briana Michelle MD LAB BLOOD ORDERABLES Final Result Performing Organization Address [facility] de Phone Number [facility] [address] [address] [facility] [place] [address] * Allergen Alternaria tenuis (mold) IgE (12/10/2024 2:59 PM CDT) Alternaria tenius IgE <0.10 0.00 - 0.34 kUnits/L Comment:Testing performed by : [facility], [address] [place] [address]., [address] Blood 12/10/2024 2:59 PM CDT 12/11/2024 10:17 AM CDT Briana Michelle MD LAB BLOOD ORDERABLES Final Result Performing Organization Address City/[facility] Co de Phone Number LAZARUS [address] [address] [facility] [place] [address] * Allergen Aspergillus fumigatus (mold) IgE (12/10/2024 2:59 PM CDT) Aspergillus fumigatus IgE <0.10 0.00 - 0.34 kUnits/L Comment:Testing performed by : [facility], [address] [place] [address]., [id number] Blood 12/10/2024 2:59 PM CDT 12/11/2024 10:17 AM CDT Briana Michelle MD LAB BLOOD ORDERABLES Final Result Performing Organization Address [facility] de Phone Number LA[facility]AR[facility] [address] [address] [facility] [place] [address] * Allergen Dermatophagoides pteronyssinus (insect) IgE (12/10/2024 2:59 PM CDT) Dermatophyton pteronyssinus IgE <0.10 0.00 - 0.34 kUnits/L Comment:Testing performed by : [facility], [address] [place] [address]., [address] Blood 12/10/2024 2:59 PM CDT 12/11/2024 10:17 AM CDT Briana Michelle MD LAB BLOOD ORDERABLES Final Result Performing Organization Address [facility] Co de Phone Number [facility] [address] [address] [facility] [place] [address] * Allergen Dermatophagoides farniae (insect) IgE (12/10/2024 2:59 PM CDT) Dermatophyton farinae IgE <0.10 0.00 - 0.34 kUnits/L Comment:Testing performed by : [facility], [address] [place] [address]., [address] Blood 12/10/2024 2:59 PM CDT 12/11/2024 10:17 AM CDT Briana Michelle MD LAB BLOOD ORDERABLES Final Result Performing Organization Address [facility] Co de Phone Number LAZARUS [address] [address] [facility] [place] [address] * Allergen Epithelia/dander dog (animal) IgE (12/10/2024 2:59 PM CDT) Dog dander IgE <0.10 0.00 - 0.34 kUnits/L Comment:Testing performed by : [facility], [address] [place] [address]., [address] Blood 12/10/2024 2:59 PM CDT 12/11/2024 10:17 AM CDT Result [facility] Briana Michelle MD LAB BLOOD ORDERABLES Final Result Performing Organization Address [facility] Co de Phone Number [facility] [address] [address] [facility] [place] [address] * Allergen Cockroach micronesian (insect) IgE (12/10/2024 2:59 PM CDT) Cockroach IgE <0.10 0.00 - 0.34 kUnits/L Comment:Testing performed by : [facility], [address] [place] [address]., [address] Blood 12/10/2024 2:59 PM CDT 12/11/2024 10:17 AM CDT Result [facility] Briana Michelle MD LAB BLOOD ORDERABLES Final Result LAZARUS [address] [address] [facility] [place] [address] * Allergen Epithelia/dander cat (animal) IgE (12/10/2024 2:59 PM CDT) Cat dander IgE <0.10 0.00 - 0.34 kUnits/L Comment:Testing performed by : [facility], [address] [place] [address]., [id number] Blood 12/10/2024 2:59 PM CDT 12/11/2024 10:17 AM CDT Briana Michelle MD LAB BLOOD ORDERABLES Final Result Performing Organization Address [facility] Co de Phone Number [facility] [address] [address] [place] [address] * Allergen Ragweed short/common (weed) IgE (12/10/2024 2:59 PM CDT) Ragweed common IgE <0.10 0.00 - 0.34 kUnits/L Comment:Testing performed by : [facility], [address] [place] [address]., [address] Blood 12/10/2024 2:59 PM CDT 12/11/2024 10:17 AM CDT Result [facility] Briana Michelle MD LAB BLOOD ORDERABLES Final Result Performing Organization Address [facility] de Phone Number [facility] [address] [address] [facility] [place] [address] * Allergen Pigweed, rough (weed) IgE (12/10/2024 2:59 PM CDT) Pigweed rough IgE <0.10 0.00 - 0.34 kUnits/L Comment:Testing performed by : [facility], [address] [place] [address]., [address] Blood 12/10/2024 2:59 PM CDT 12/11/2024 10:17 AM CDT Briana Michelle MD LAB BLOOD ORDERABLES Final Result Performing Organization Address [facility] Co de Phone Number LAZARUS [address] [address] [facility] [place] [address] * Allergen Nettle (weed) IgE (12/10/2024 2:59 PM CDT) Nettle IgE <0.10 0.00 - 0.34 kUnits/L Comment:Testing performed by : [facility], [address] [place] [address]., [address] Blood 12/10/2024 2:59 PM CDT 12/11/2024 10:17 AM CDT Briana Michelle MD LAB BLOOD ORDERABLES Final Result Performing Organization Address [facility] Co de Phone Number LAZARUS [address] [address] [facility] [place] [address] * Allergen Fagan's quarter (weed) IgE (12/10/2024 2:59 PM CDT) Fagan's quarters IgE <0.10 0.00 - 0.34 kUnits/L Comment:Testing performed by : [facility], [address] [place] [address]., [address] Blood 12/10/2024 2:59 PM CDT 12/11/2024 10:17 AM CDT Briana Michelle MD LAB BLOOD ORDERABLES Final Result Performing Organization Address [facility] Co de [place] [address] [address] [facility] [place] [address] * Allergen Navid grass (grass) IgE (12/10/2024 2:59 PM CDT) Navid grass IgE <0.10 0.00 - 0.34 kUnits/L Comment:Testing performed by : [facility], [address] [place] [address], [place]., [address] Blood 12/10/2024 2:59 PM CDT 12/11/2024 10:17 AM CDT Briana Michelle MD LAB BLOOD ORDERABLES Final Result Performing Organization Address [facility] Co de Phone Number LAZARUS FISHER [address] [address] [place] [address] * Allergen Perez grass (grass) IgE (12/10/2024 2:59 PM CDT) Perez grass IgE <0.10 0.00 - 0.34 kUnits/L Comment:Testing performed by : [facility], [address] [place]., [address] Blood 12/10/2024 2:59 PM CDT 12/11/2024 10:17 AM CDT Briana Michelle MD LAB BLOOD ORDERABLES Final Result Performing Organization Address [facility] Co de Phone Number LAZARUS FISHER [address] [address] [place] [address] * Allergen Malden (tree) IgE (12/10/2024 2:59 PM CDT) [facility] Malden (tree) IgE <0.10 0.00 - 0.34 kUnits/L Comment:Testing performed by : [facility], [address] [place]., [address] Blood 12/10/2024 2:59 PM CDT 12/11/2024 10:17 AM CDT Briana Michelle MD LAB BLOOD ORDERABLES Final Result Performing Organization Address City/[facility] Co de Phone Number LAZARUS FISHER [address] [address] [facility] [place] [address] * Allergen Plymouth micronesian (tree) IgE (12/10/2024 2:59 PM CDT) [place] IgE <0.10 0.00 - 0.34 kUnits/L Comment:Testing performed by : [facility], [address] [place] [address]., [id number] Blood 12/10/2024 2:59 PM CDT 12/11/2024 10:17 AM CDT Briana Michelle MD LAB BLOOD ORDERABLES Final Result Performing Organization Address City/[facility] Co de Phone Number [facility] [address] [address] Department [place] [address] * Allergen Maple/Box elder (tree) IgE (12/10/2024 2:59 PM CDT) [facility] Maple/box elder IgE <0.10 0.00 - 0.34 kUnits/L Comment:Testing performed by : [facility], [address] [place] [address]., [address] Blood 12/10/2024 2:59 PM CDT 12/11/2024 10:17 AM CDT Briana Michelle MD LAB BLOOD ORDERABLES Final Result Performing Organization Address [facility] Co de Phone Number [facility] [address] [address] Department [place] [address] * Allergen [place] red (tree) IgE (12/10/2024 2:59 PM CDT) Pathologist [facility] [place] IgE <0.10 0.00 - 0.34 kUnits/L Comment:Testing performed by : [facility], [address] [place] [address]., [id number] Blood 12/10/2024 2:59 PM CDT 12/11/2024 10:17 AM CDT Briana Michelle MD LAB BLOOD ORDERABLES Final Result Performing Organization Address City/[facility] Co de Phone Number LAZARUS FISHER [address] [address] [place] [address] * IgE (12/10/2024 2:59 PM CDT) IgE 10 <=100 IUnits/mL Comment:Testing performed by : [facility], [address] [facility], [place]., [address] Blood 12/10/2024 2:59 PM CDT 12/11/2024 10:30 AM CDT Briana Michelle MD LAB BLOOD ORDERABLES Final Result LAZARUS FISHER [address] [address] [facility] [place] [address] * IgA (12/10/2024 2:59 PM CDT) Immunoglobulin A 239 70 - 400 mg/dL Blood 12/10/2024 2:59 PM CDT 12/10/2024 7:23 PM CDT Briana Michelle MD LAB BLOOD ORDERABLES Final Result [facility] [id number] [place] [address] * IgM (12/10/2024 2:59 PM CDT) Immunoglobulin M 131 40 - 150 mg/dL Blood 12/10/2024 2:59 PM CDT 12/10/2024 7:23 PM CDT Briana Michelle MD LAB BLOOD ORDERABLES Final Result [facility] [address] [place] [address] * IgG (12/10/2024 2:59 PM CDT) Immunoglobulin G 963 700 - 1,600 mg/dL Blood 12/10/2024 2:59 PM CDT 12/10/2024 7:23 PM CDT Briana Michelle MD LAB [place] [id number] [facility] Department [place] [address] * SCAN - LABS (12/10/2024) Provider Scanning Final Result from Last 3 Months Insurance [facility] Care Teams Cupola Man Relationship Specialty Start Date End Date Marlys Urena, RECORDER GRAVITY PROSPECTING [address] [place] [address] PCP - General Associate Partner 07/19/24
--- OUTSIDE RECORDS SUMMARY | 2025-01-08 14:33 | XMS_ITS ---
Author Organization [facility] Address [address] [place] [address] Phone Care Team Providers Care National Accounts Recruiter Name Role Phone Marlys Urena APRN, ROCKET ASSEMBLY OPERATOR Primary Care Provider [phone] Florencia Bhatia APRN, CORPORATE GIVING MANAGER Unavailable +- [phone] Shweta Nino APRN, ROCKET ASSEMBLY OPERATOR Unavailable Warren Saunders MD Unavailable [facility] Chronic Condition Monitoring Status:Enrolled (Active) Start date:09/13/2024 Enrollment date:09/13/2024 Related social drivers of health:Social Connections, Tobacco Use, Financial Resource Strain, Stress, Physical Activity, Food Insecurity, Transportation Needs, Housing Stability Related service episodes:[facility] Service Episode (Enrolling) Continued Care and Services Coordination
--- OUTSIDE RECORDS SUMMARY | 2025-01-08 14:33 | XMS_ITS | Clinical Summary ---
Author Organization [facility] Address [address] [place] [address] Care Team Providers Care Byproducts Maker Name Role Phone Romel Marlys Joiner Primary Care Provider [phone] Source Comments [facility],non-owned Affiliates and Associated Physician Practices is amultiple site organization consisting of ambulatory clinics and hospital sitesin [place], [place], [place] and [place]. This disclosure is being madepursuant to the Care Everywhere program and may not contain all information available regarding this patient. Last updated 18.[facility] Allergies No known active allergies Medications * [...] fluticasone propionate (Flonase) 50 MCG/ACT nasal spray [place] 1 (one) spray into the nose 2 [...] Encounters Date Type Department Care Team Description 01/04/2025 Orders Only [facility] Health Pain Care [address] [place] [phone] [place] Michel MD Cervical spondylosis without myelopathy ; Cervicalgia 01/03/2025 10:00 AM CDT - 01/03/2025 11:59 PM CDT Hospital Encounter [facility] Health Pain Care [address] [place] [phone] [place] Michel MD Discharge Disposition: Home or Self Care 01/03/2025 Travel 12/18/2024 Travel 12/12/2024 11:30 AM CDT Office Visit [facility] - Pain Management [address] [place] [phone] [place] Michel MD Cervical spondylosis (Primary Dx); Cervicalgia 11/23/2024 10:30 AM CDT Office Visit [facility] - Neurosurgery [address] [place] [phone] Ilia Gallardo MD Cervicalgia (Primary Dx); Dizziness; Cervical radiculopathy 11/23/2024 Travel 10/19/2024 Travel from Last 3 Months Social History Tobacco Use Types Packs/Day Years Used Date Smoking Tobacco: Never Assessed Comments Unknown Sex and Gender Information Value Date Recorded Sex Assigned at Not on file Legal Sex Female 6:54 AM PERMACULTURE DESIGNER Gender Identity Not on file Sexual Orientation [...] Info) Description 03/11/2025 10:30 AM CDT Appointment [facility] Neuroscience [address] [place] [address] Health Maintenance Due Date Last Done Comments [...] 11:45 AM CDT [place] Michel MD 01/03/2025 4:30 PM PROCEDURE NOTE: BILATERAL C2, C3 and C4 [...] was injected. The needles were withdrawn. The procedure was then repeated on the contra-lateral side. The patient tolerated the procedure well and [...] [place] Reynaga MD DIAGNOSTIC IMAGING ORDERA BLES Edited Result - Final from Last [address] [facility] Care Teams Byproducts Maker Relationship Specialty Start Date End Date Marlys Urena [address] [place] [address] PCP - General Wire Coiler 10/19/24
--- OUTSIDE RECORDS SUMMARY | 2025-01-08 14:33 | XMS_ITS | Encounter Summary ---
Author Organization [facility] Address [address] [place] [address] Phone Care Team Providers Care Dental Associate Name Role Phone Marlys Urena APRN, AUTO PORTER Primary Care Provider [phone] Florencia Bhatia REHABILITATION THERAPY TECHNICIAN, CORPORATE DEVELOPMENT OFFICER Unavailable + [phone] Shweta Nino APRN, AUTO PORTER Unavailable Warren Saunders MD Unavailable Elzbieta Deleon HEATING AND AIR CONDITIONING MECHANIC Unavailable Unavailab le Reason for Visit * Reason Onset Date Comments Follow-up 08/07/2024 Referral 08/07/2024 Encounter Details Date Type Department Care Team (Late st Contact Info) Description 08/07/2024 [facility]phone [facility] [address] [place] [address] Marlys Urena REHABILITATION THERAPY TECHNICIAN, AUTO PORTER [address] [place] [address] Follow-up; Referral Social History Tobacco Use Types Packs/Day Years Used Date Smoking Tobacco: Former Cigarettes 2 011 - 07/21/2024 Smokeless Tobacco: Never Alcohol Use Standard Drinks/Week Comments Not Currently 0 (1 standard drink = 0.6 oz pur e alcohol) [facility] Utilities Answer Date Recorded In the past 12 months has th e [employer], gas, oil, or water [employer] threatened to shut off services in your [...] How often do you attend chur or restoration services? Patient declined 06/24/2024 Do you belong to any clubs o r organizations such as jew groups, unions, fraternal or athletic groups, or [...] Total Score - Questions 1-9 0 06/13 [facility] - Occupational [...] were you homeless or living in a fdc (including now)? No 06/24/2024 Comments No Sex and Gender Information Value Date Recorded Sex Assigned at Not on file Legal Sex Female 8:47 AM CDT Gender Identity Not on file Sexual Orientation Not on file documented as of this encounter Miscellaneous Notes * Telephone Encounter - Marlys Urena APRN, CNP - 08/07/2024 4:07 PM VIDEO RECORDER MECHANIC Note was completed. O RECORDER MECHANIC * Telephone Encounter - Jennifer Jimenez RN - 08/07/2024 3:12 PM VIDEO RECORDER MECHANIC Situation: hematology referral Background: Patient contacting PCP office. Patient states she was in yesterday and had a referral placed to a new auction block clerk. She states shewas told the referral cannot be sent until the clinical notes for the visit are signed. She is wondering if they can be signed so the referral can be sent and she can schedule with hematology. Assessment: NA Recommendation: Patient requests a Event[employer]oud message back when notes have been signed. Encounter routed to provider high priority to notify. Discussed utilizing MyChart to: discuss if they would prefer a Haloadhart message or phone call response O RECORDER MECHANIC documented in this encounter Plan of Treatment Upcoming Encounters Date Type Department Care Team (Late st Contact Info) Description 01/22/2025 11:30 AM CDT Office Visit [facility] - Pulmonology & Sleep Medicine [facility] [address] [place] [address] Warren Saunders MD [address] [place] [address] 02/19/2025 10:50 AM CDT [facility] [address] [place] [phone] Jaspal Cowan MD [address] [place] [address] Discharge Disposition: Discharged to home or Selfcare 02/19/2025 11:00 AM CDT Office Visit [facility] Oncology Services [address] [place] [phone] Jaspal Cowan MD [address] [place] [address] Discharge Disposition: Discharged to home or Selfcare documented as of this encounter Visit Diagnoses Not on filedocumented in this encounter Additional Health Concerns Assessment Noted Time PHQ-9 Depression Total Score: 0 06/25/19 4:17 PM VIDEO RECORDER MECHANIC documented as of this encounter Care Teams Dental Associate Relationship Specialty Start Date End Date Marlys Urena APRN, AUTO PORTER [address] [place] [address] PCP - General Certified Nurse Practitioner 07/09/24 Florencia Bhatia APRN, CORPORATE DEVELOPMENT OFFICER [address] [place] [address] Nurse Practitioner Advanced Practice Nurse 08/08/24 Shweta Nino APRN, AUTO PORTER [address] [place] [address] Nurse Practitioner Advanced Practice Nurse 08/13/24 Warren Saunders MD [address] [place] [address] Consulting Physician Pulmonary Disease 08/27/24 Elzbieta Deleon, HEATING AND AIR CONDITIONING MECHANIC [place] Lining Setter Recruiter Manager 11/06/24 11/08/24 documented as of this encounter
--- OUTSIDE RECORDS SUMMARY | 2025-01-08 14:33 | XMS_ITS | Clinical Summary ---
Author Organization [facility] Address [address] [place] [address] Phone Care Team Providers Care Hall Clerk Name Role Phone Marlys Urena APRN, SPOT WASHER Primary Care Provider [phone]- [phone] Florencia Bhatia APRN, [facility] Unavailable +- [phone] Shweta Nino APRN, SPOT WASHER Unavailable Warren Saunders MD Unavailable Allergies Active [...] 2 hours if headache recurs. 9 Tablet 07/09/19 25 Active acetaminophen (TYLENOL) 500 MG Tablet Take 1,000 mg by mouth every 6 hours as needed. Active ibuprofen (MOTRIN) 200 MG Tablet Take 200 mg by mouth every 6 hours as needed. Active VITAMIN D PO Take 1 Tablet by mouth daily. Active Cyanocobalamin (VITAMIN B-12 PO) Take 1 Tablet by mouth daily. Active fluticasone (FLONASE) 50 MCG/ACT Suspension 1 Assaria by Nasal route 2 times daily as needed. 07/13/19 Active folic acid (FOLVITE) 400 MCG Tablet Take 2 Tablets by mouth daily. 60 Tablet 2 09/08/19 Active Additional Information Patient not taking.Reported on 11/30/2024 famotidine (PEPCID) 10 MG Tablet Take 10 mg by mouth daily. Active loratadine (Claritin) 10 MG Tablet Take 10 mg by mouth daily as needed. Active LORazepam (ATIVAN) 1 MG TabletIndicati ons:Anxiety TAKE 1/2 TABLET BY MOUTH EVERY 12 HOURS NEEDED FOR ANXIETY 10 Tablet 01/05/20 Active LORazepam (ATIVAN) 1 MG TabletIndicati ons:Anxiety TAKE 1/2 TABLET BY MOUTH EVERY 12 HOURS NEEDED FOR ANXIETY 10 Tablet 09/25/19 025 Discontinued Active Problems Problem Noted Date Diagnosed Date [...] Date Type Department Care Team Description 01/04/2025 Refill [facility] Medical [facility] - [place] [address] [place] [address] Marlys Urena, COMPUTER SYSTEMS ARCHITECT, SPOT WASHER Medication Refill 11/30/2024 1:30 PM CDT Office Visit [facility] Medical [facility] - Cardiology [facility] [address] [place] [address] Leah Jimenez MD Palpitations (Primary Dx); Dizziness Discharge Disposition: Discharged to home or Selfcare 11/30/2024 Travel 11/22/2024 1:00 PM CDT Clinical Support [facility] Oncology Services [address] [place] [address] Ruthie Rodas PAC Sandhu, Manpreet Kaur, MD Hereditary hemochromatosis (HCC) (Primary Dx) Discharge Disposition: Discharged to home or Selfcare 11/22/2024 Travel 11/21/2024 Telephone [facility] Oncology Services [address] [place] [address] Jaspal Cowan MD 11/19/2024 5:00 PM CDT - 11/19/2024 11:59 PM CDT Hospital Encounter [facility] Cardiology Services [address] [place] [address] Leah Jimenez MD Discharge Disposition: Discharged to home or Selfcare 11/19/2024 Travel 11/08/2024 Patient Outreach [facility] Electric Engine Mechanic Management [address] [place] [address] Elzbieta Deleon, [facility] Care Management (Patient outreach) 11/07/[address] [facility] - [address] [place] [address] Marlys Urena APRN, SPOT WASHER Referral 11/06/2024 Patient Outreach [facility] [employer] Mechanic Management [address] [place] [address] Antony Miranda, SINGLE POINTED OPERATOR Care Management (SW Outreach) 11/02/2024 2:15 PM CDT Office Visit [facility] - [address] [place] [address] Marlys Urena APRN, SPOT WASHER Dental cavities (Primary Dx); Dizziness; Neck tightness; Vision abnormalities Discharge Disposition: Discharged to home or Selfcare 11/01/2024 Results Follow-Up [facility] [place] [address] [place] [address] Marlys Urena, COMPUTER SYSTEMS ARCHITECT, SPOT WASHER MRI C-SPINE W/WO CONTRAST 10/31/2024 7:13 AM CDT - 10/31/2024 11:59 PM CDT [facility] [address] [place] [address] Marlys Urena, COMPUTER SYSTEMS ARCHITECT, SPOT WASHER Discharge Disposition: Discharged to home or Selfcare 10/30/2024 Travel 10/29/2024 Results Follow-Up [facility] Cardiology Services [address] [place] [address] ANGIO NECK W/WO CONTRAST / PP, ADULT TRANS THORACIC ECHO 2D COMPLETE 10/27/2024 9:33 AM CDT - 10/27/2024 11:59 PM CDT Hospital Encounter [facility] CT [address] [place] [address] Leah Jimenez MD Discharge Disposition: Discharged to home or Selfcare 10/27/2024 Travel 10/26/2024 Travel 10/26/2024 Telephone [facility] Outpatient [address] [facility] [place] [address] Leah Jimenez MD Prior Authorization (CT denial-not meeting necessity) 10/16/2024 1:00 PM CDT Office Visit [facility] Oncology Services [address] [place] [address] Jaspal Cowan MD Pain in joint, multiple sites (Primary Dx); Low folic acid; Arthralgia, unspecified joint; Hereditary hemochromatosis (HCC); Neck pain; Vision abnormalities Discharge Disposition: Discharged to home or Selfcare 10/16/2024 Travel 10/16/[address] [facility] Center [address] [place] [address] RomelMarlys shell APRN, SPOT WASHER Neck tightness (Primary Dx) 10/15/2024 11:00 AM CDT Office Visit [place] [address] [place] [address] Marlys Urena APRN, SPOT WASHER Cervical radiculopathy (Primary Dx); Neck tightness; Neck pain; Dizziness Discharge Disposition: Discharged to home or Selfcare 10/15/2024 Travel 10/10/2024 10:30 AM CDT Clinical Support [facility] Oncology Services [address] [place] [address] Jaspal Cowan MD Hereditary hemochromatosis (HCC) Discharge Disposition: Discharged to home or Selfcare 10/10/2024 Travel 10/09/2024 3:00 PM CDT Telemedicine [facility] [address] [place] [phone] Kaylee Bateman APRN, SPOT WASHER Neck pain (Primary Dx); Vision abnormalities; Neck tightness 10/09/2024 [facility] [address] [place] [address] Marlys Urena APRN, SPOT WASHER Neck Pain 10/09/2024 [address] [place] [address] Marlys Urena APRN, SPOT WASHER 10/09/2024 Travel 10/09/2024 Nurse Triage [facility] [address] [place] [address] Diane Hawkins, SHIN Neck Pain from Last 3 Months Immunizations Immunization Administration [...] drink = 0.6 oz pur e alcohol) [facility] Utilities Answer Date Recorded In the past 12 months has e electric, gas, oil, or water company threatened to shut off services in your [...] often do you attend chur ch or rastafari services? Never 09/14/2024 Do you belong to any clubs o r organizations such as scientologist groups, unions, fraternal or athletic groups, or [...] Total Score - Questions 1-9 0 06/13 [facility] - Occupational Stress [...] any time in the past 12 m [facility], were you homeless or living in a chcf (including now)? No 09/14/2024 Sexually Active Control [...] Medical Group - Pulmonology & Sleep Medicine [facility] [address] [place] [address] Warren Saunders MD [address] [place] [address] 02/19/2025 10:50 AM CDT [facility] [address] [place] [address] Jaspal Cowan MD [address] [place] [address] Discharge Disposition: Discharged to home or Selfcare 02/19/2025 11:00 AM CDT Office Visit [facility] Oncology Services [address] [place] [address] Jaspal Cowan MD [address] [place] [address] Discharge Disposition: Discharged to home or Selfcare Health Maintenance Due Date Last Done Comments Hepatitis B Immunization (1 of 3 - 19+ 3-dose series) 2011 Pneumococcal Immunization Combined (1 of 2 - PCV) 2011 Pap Smear 2013 Human Papillomavirus (HPV) Immunization (1 - 3-dose SCDM series) 2019 Cervical Cancer Screening (CCS) 2022 HPV/Cotest 2022 [...] PANEL ACUTE (AHP) STAT 07/21/2024 8:36 AM ENVIRONMENT ARTIST from Last 3 Months or Most Recently Relevant to Health Maintenance Results * (ABNORMAL) IRON,TRANSFERN,CALC.TIBC,%SAT (11/21/2024 12:20 PM CDT) Only the most recent of2 resultswithin the time period is included. IRON 245(H) 25 - 156 mcg/dL 11/21/2024 1:27 PM CDT [facility] TRANSFERRIN 290 180 - 382 mg/dL 11/21/2024 1:27 PM CDT [facility] TIBC, CALCULATED 363 265 - 497 mcg/dL 11/21/2024 1:27 PM CDT [facility] % SATURATION * 67(H) 15 - 62 % 11/21/2024 1:27 PM CDT [facility] Blood Venipuncture / Unknown 11/21/2024 12:20 PM CDT 11/21/2024 12:44 PM CDT us Jaspal Cowan MD CHEMISTRY ORDERABLES Fin al Result [facility] [address] [place] [address] * CBC WITH AUTO DIFFERENTIAL (11/21/2024 12:20 PM CDT) Only the most recent of2 resultswithin the time period is included. Pathologist [facility] WBC 5.84 4.00 - 12.00 10(3)/mcL 11/21/2024 12:49 PM CDT [facility] RBC 5.28 3.80 - 5.30 10(6)/mcL 11/21/2024 12:49 PM CDT [facility] HEMOGLOBIN (HGB) 15.4 12.0 - 15.8 g/dL 11/21/2024 12:49 PM CDT [facility] HEMATOCRIT (HCT) 45.2 36.0 - 47.0 % 11/21/2024 12:49 PM CDT [facility] MCV 85.6 82.0 - 96.0 fL 11/21/2024 12:49 PM CDT [facility] MCH 29.2 26.0 - 34.0 pg 11/21/2024 12:49 PM CDT [facility] MCHC 34.1 31.0 - 36.0 g/dL 11/21/2024 12:49 PM CDT [facility] PLATELET COUNT 196 140 - 440 10(3)/mcL 11/21/2024 12:49 PM CDT [facility] RDW 12.1 11.8 - 15.5 % 11/21/2024 12:49 PM CDT [facility] MPV 12.2 9.7 - 12.4 fL 11/21/2024 12:49 PM CDT [facility] NEUTROPHILS 56.6 47.0 - 73.0 % 11/21/2024 12:49 PM CDT [facility] LYMPHOCYTES 33.7 18.0 - 42.0 % 11/21/2024 12:49 PM CDT [facility] MONOCYTES 6.8 4.0 - 12.0 % 11/21/2024 12:49 PM CDT [facility] EOSINOPHILS 1.9 0.0 - 5.0 % 11/21/2024 12:49 PM CDT [facility] BASOPHILS 1.0 0.0 - 1.0 % 11/21/2024 12:49 PM CDT [facility] ABSOLUTE NEUTROPHILS 3.30 1.60 - 7.70 10(3)/[facility] 11/21/2024 12:49 PM CDT [facility] ABSOLUTE LYMPHOCYTES 1.97 1.30 - 3.20 10(3)/[facility] 11/21/2024 12:49 PM CDT [facility] ABSOLUTE MONOCYTES 0.40 0.20 - 1.00 10(3)/[facility] 11/21/2024 12:49 PM CDT [facility] ABSOLUTE EOSINOPHIL 0.11 0.00 - 0.40 10(3)/[facility] 11/21/2024 12:49 PM CDT [facility] ABSOLUTE BASOPHILS 0.06 0.00 - 0.10 10(3)/[facility] 11/21/2024 12:49 PM CDT [facility] NRBC PER 100 WBC 0 11/22/19 25 12:49 PM CDT [facility] Blood Venipuncture / Unknown 11/21/2024 12:20 PM CDT 11/21/2024 12:44 PM CDT Jaspal Cowan MD HEMATOLOGY ORDERABLES Fi nal Result Performing Organization Address City/[facility] Co de Phone Number [facility] [address] [place] [address] * FERRITIN (11/21/2024 12:20 PM CDT) Only the most recent of2 resultswithin the time period is included. FERRITIN 44 5 - 204 ng/mL 11/21/2024 1:37 PM CDT [facility] Blood Venipuncture / Unknown 11/21/2024 12:20 PM CDT 11/21/2024 12:44 PM CDT Jaspal Cowan MD CHEMISTRY ORDERABLES Fin al Result Performing Organization Address City/[facility]/ZIP Co de Phone Number [facility] [address] [place] [address] * ADULT TRANS THORACIC ECHO 2D COMPLETE [...] name SABIHA Vora 1990 Patient ID (UPI) [id number] Indications: Palpitations and Dizziness. Study Date11/19/2024 Technical [...] lbs. BMI (BSA) 31.76 kg/m^2 (1.75 m^2) Early Childhood Alexander Lynn Physician Leah Physician Doreen Traylor Procedure Note Layton Logan MD - 11/20/2024 Transthoracic Echocardiography Report (TTE) Patient name SABIHA Vora 1990 Patient ID (UPI) [id number] Indications: Palpitations and Dizziness. Study Date11/19/2024 Technical [...] lbs. BMI (BSA) 31.76 kg/m^2 (1.75 m^2) Early Childhood Alexander Lynn Physician Leah Physician Doreen Traylor [...] Conrado Quigley M.D. GORDY: GORDY Report ID: [id number] Reading Location: [id number] Procedure Note Conrado Quigley MD - 10/31/2024 [...] Conrado Quigley M.D. GORDY: GORDY Report ID: [id number] Reading Location: [id number] IMPRESSION: Constellation of straightening of the cervical lordosis and mild spondylosis and degenerative disc disease of the cervical spine as detailed level by level above without spinal canal stenosis or neural foraminal stenosis. us Marlys Urena COMPUTER SYSTEMS ARCHITECT, SPOT WASHER IMG MR ORDERABLES Final Re sult * [...] Conrado Quigley M.D. GORDY: GORDY Report ID: [id number] Reading Location: [id number] Procedure Note Conrado Quigley MD - 10/29/2024 [...] Conrado Quigley M.D. GORDY: GORDY Report ID: [id number] Reading Location: [id number] IMPRESSION: 1. No occlusion, stenosis, or dissection of the cervical arterial vasculature. 2. Incidental visualization of robust panparanasal sinus disease developing since September [address]24 CT sinuses. Correlate with clinical context. Leah Jimenez MD IM CT ORDERABL ES Final Result * Ur Test Qual (10/27/2024 9:54 AM CDT) PREG TEST,MONOCLONA L Negative 10/27/2024 10:13 AM CDT [facility] Urine Non-Phlebotomy Collection / Unknown 10/27/2024 9:54 AM CDT 10/27/2024 9:54 AM CDT Leah Jimenez MD URINE ORDERABLE S Final Result Performing Organization Address City/[facility]/ZIP Co de Phone Number [facility] [address] [place] [address] * CYCLIC CITRULLINATED PEPTIDE 3 (10/16/2024 2:20 PM CDT) CCP IGG <0.5 <3.0 U/mL 10/16/2024 10:30 PM CDT [facility] Blood Venipuncture / Unknown 10/16/2024 2:20 PM CDT 10/16/2024 2:32 PM CDT Narrative [facility] - 10/16/2024 10:30 PM CDT Antibody testing was performed by multiplex flow immunoassay on the [employer] platform. Jaspal Cowan MD IMMUNOLOGY ORDERABLES Fi nal Result Performing Organization Address [facility] Co de Phone Number [facility] [address] [place] [address], [place] * ERYTHROCYTE SEDIMENTATION RATE (ESR) (10/16/2024 2:20 PM CDT) ESR (SED RATE, ERYTHROCYTE SEDIMENTATION RATE) 6 <20 mm/h 10/16/2024 4:09 PM CDT [facility] Comment: Patients presenting with increased level of fibrinogen, gamma globulins, or abnormally shaped RBCs could affect the results for the erythrocyte sedimentation rate (ESR). Results should be clinically correlated. Blood Venipuncture / Unknown 10/16/2024 2:20 PM CDT 10/16/2024 2:32 PM CDT Jaspal Cowan MD HEMATOLOGY ORDERABLES Fi nal Result Performing Organization Address City/[facility]/ZIP Co de Phone Number [facility] [address] [place] [address] * RHEUMATOID FACTOR (RFQT) QUANT (10/16/2024 2:20 PM CDT) RHEUMATOID FACTOR QT <13 <30 IU/mL 10/16/2024 3:02 PM CDT [facility] Blood Venipuncture / Unknown 10/16/2024 2:20 PM CDT 10/16/2024 2:32 PM CDT Narrative [facility] - 10/16/2024 3:02 PM CDT RHEUMATOID [...] ORDERABLES Fin al Result Performing Organization Address [facility] Co de Phone Number [facility] [address] [place] [address] * C-REACTIVE PROTEIN (CRP) QUANT (10/16/2024 2:20 PM CDT) C-REACTIVE PROTEIN 0.42 <0.50 mg/dL 10/16/2024 3:03 PM CDT [facility] Blood Venipuncture / Unknown 10/16/2024 2:20 PM CDT 10/16/2024 2:31 PM CDT Jaspal Cowan MD CHEMISTRY ORDERABLES Fin al Result Performing Organization Address City/[facility] Co de Phone Number [facility] [address] [place] [address] * JESSY SCREEN MULTIPLEX W/REFLEX LOLA (10/16/2024 2:20 PM CDT) JESSY SCR MULTIPLEX Negative Negative, See comment 10/16/2024 10:30 PM CDT [facility] Blood Venipuncture / Unknown 10/16/2024 2:20 PM CDT 10/16/2024 2:32 PM CDT Narrative [facility] - 10/16/2024 10:30 PM CDT Antibody testing was performed by multiplex flow immunoassay on the [employer] platform. us Jaspal Connie Cowan MD IMMUNOLOGY ORDERABLES Fi nal Result [facility] [address] [place] [address], * Hepatitis Panel Acute (AHP) (07/21/2024 8:36 AM ENVIRONMENT ARTIST) Pathologist [facility] HEPATITIS A IGM ANTIBODY NON DETECTED NON DETECTED 07/21/2024 9:12 PM ENVIRONMENT ARTIST [facility] Comment: IGM Antibodies to HAV not detected. Does not exclude early acute or recovered HAV infection. HEP B CORE AB (IGM) NON DETECTED NON DETECTED 07/21/2024 9:12 PM ENVIRONMENT ARTIST [facility] Comment:IGM anti-HBC not det ected. Does not exclude the possibility of exposure to or infection with HBV. HEPATITIS B SURFACE ANTIGEN NON DETECTED NON DETECTED 07/21/2024 9:12 PM ENVIRONMENT ARTIST [facility] Comment:A nonreactive test r esult does not [...] antibody 0.29 <1 S/CO 07/21/2024 9:12 PM [facility] Comment: Signal/Cutoff ratio < 0.79 is Nondetected Signal/Cutoff ratio 0.80-0.99 is Grayzone Signal/Cutoff ratio > 0.99 is Detected Supplemental assays are recommended if signal/cutoff ratio is >/=1.00. Signal/cutoff ratio result >/= 5.00 is 97% predictive of positivity for recombinant immunoblot assay (RIBA) and will be reported to the [place] Department of Public Health as required. Blood Venipuncture / Unknown 07/21/2024 8:36 AM ENVIRONMENT ARTIST 07/21/2024 10:44 AM ENVIRONMENT ARTIST us Shar Garibay MD HEMATOLOGY ORDERABLES Final Resu lt [facility] [address] [place] [address], from Last 3 Months or Most Recently Relevant to Health Maintenance Insurance MEDICAID [employer] Care Teams Hall Clerk Relationship Specialty Start Date End Date Marlys Urena APRN, SPOT WASHER [address] [place] [address] PCP - General Certified Nurse Practitioner 07/09/24 Florencia Bhatia APRN, OSHA INSPECTOR [address] [place] [address] Nurse Practitioner Advanced Practice Nurse 08/08/24 Shweta Nino APRN, SPOT WASHER [address] [place] [address] Nurse Practitioner Advanced Practice Nurse 08/13/24 Warren Saunders MD [address] [place] [address] Consulting Physician Pulmonary Disease 08/27/24
--- OUTSIDE RECORDS SUMMARY | 2025-01-08 14:33 | XMS_ITS ---
Author Organization [facility] Address [address] [place] [address] Phone Care Team Providers Care Wild Oyster Harvester Name Role Phone Marlys Urena APRN, GRAIN MILL PRODUCTS INSPECTOR Primary Care Provider [phone] Florencia Bhatia APRN, MEDICAL CLAIMS MANAGER Unavailable +- [phone] Shweta Nino APRN, GRAIN MILL PRODUCTS INSPECTOR Unavailable Warren Saunders MD Unavailable [facility] Service Episode Status:Identified (Enrolling) Start date:09/13/2024 Related program episode:[facility] Chronic Condition Monitoring (Active) Continued Care and Services Coordination
--- OUTSIDE RECORDS SUMMARY | 2025-01-08 14:33 | XMS_ITS | Encounter Summary ---
Author Organization [facility] Address [address] [place] [address] Phone Care Team Providers Care Life Insurance Underwriter Name Role Phone Marlys Urena APRN, QC ANALYST Primary Care Provider [phone] Florencia Bhatia APRN, EDITORIAL PROJECT MANAGER Unavailable + [phone] Shweta Nino APRN, QC ANALYST Unavailable Warren Saunders MD Unavailable Elzbieta Deleon VIDEO GAME TECHNICIAN Unavailable Unavailab le Reason for Referral * Consult, Test & Initiate Treatment (Routine) - Closed Specialty Diagnoses / Procedures Referred By Contac t Referred To Contact Diagnoses Other chronic sinusitis Warren Saunders MD [address] [place] [address] Phone: tel: fax: [facility] [address] [place] [address] [place] [address] Phone: tel: fax: Referral ID Status Reason Start Date Expiration Date Visits Re quested Visits Authorized [id number] Closed 09/14/2024 1 1 Scheduling Instructions Molly [...] Telephone [facility] [address] [place] [address] Warren Saunders MD [address] [place] [address] Referral (EXTERNAL ENT REFERRAL for Other chronic sinusitis Ordered by Dr Warren Saunders //) Social History Tobacco Use Types Packs/Day Years Used Date Smoking Tobacco: Former Cigarettes 2 - 07/21/2024 Smokeless Tobacco: Never Alcohol Use Standard Drinks/Week Comments Not Currently 0 (1 standard drink = 0.6 oz pur e alcohol) [facility] Utilities Answer Date Recorded In the past 12 months has [employer], gas, oil, or water [employer] threatened to shut off services in your [...] week 09/14/2024 How often do you attend [facility] or zoroastrian services? Never 09/14/2024 Do you belong to any clubs o r organizations such as judaism groups, unions, fraternal or athletic groups, or [...] Total Score - Questions 1-9 0 06/13 [facility] - Occupational Stress Questionnaire Answer Date Recorded [...] any time in the past 12 m [facility], were you homeless or living in a mcfp (including now)? No 09/14/2024 Comments No Sex [...] Please Place new referral To: [facility] ENT: [facility] Dr Sita Harman or other provider [address] [place] [address] [facility] Dx: Other chronic sinusitis Warren Saunders MD [facility] - Referrals opt 7 documented in this encounter Plan of Treatment Upcoming Encounters Date Type Department Care Team (Late st Contact Info) Description 01/22/2025 11:30 AM CDT Office Visit [facility] Medical [facility] - Pulmonology & Sleep Medicine [facility] [address] [place] [address] Warren Saunders MD [address] [place] [address] 02/19/2025 10:50 AM CDT Lab [facility] Oncology Services [address] [place] [address] Jaspal Cowan MD [address] [place] [address] Discharge Disposition: Discharged to home or Selfcare 02/19/2025 11:00 AM CDT Office Visit [facility] Oncology Services [address] [place] [address] Jaspal Cowan MD [address] [place] [address] Discharge Disposition: Discharged to home or Selfcare Scheduled Referrals Name Type Priority Associated Diagnoses Orde r Schedule ENT REFERRAL Outpatient Referral Routine Other chronic sinusitis Expected: 09/14/2024, Expires: 09/14/2025 documented as of this encounter Visit Diagnoses Diagnosis Other chronic sinusitis- Primary documented in this encounter Additional Health Concerns Assessment Noted Time PHQ-9 Depression Total Score: 0 06/25/19 25 4:17 PM GAS TURBINE POWERPLANT 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 HELPER documented as of this encounter Care Teams Life Insurance Underwriter Relationship Specialty Start Date End Date Marlys Urena, FUNERAL WORKERS, QC ANALYST [address] [place] [address] PCP - General Certified Nurse Practitioner 07/09/24 Florencia Bhatia APRN, EDITORIAL PROJECT MANAGER [address] [place] [address] Nurse Practitioner Advanced Practice Nurse 08/08/24 Shweta Nino APRN, QC ANALYST [address] [place] [address] Nurse Practitioner Advanced Practice Nurse 08/13/24 Warren Saunders MD [address] [place] [phone] Consulting Physician Pulmonary Disease 08/27/24 Elzbieta Deleon, VIDEO GAME TECHNICIAN MD Belt Loop Cutter Generation Mechanic Helper 11/06/24 11/08/24 documented as of this encounter
--- OUTSIDE RECORDS SUMMARY | 2025-01-08 14:33 | XMS_ITS | Clinical Summary ---
Author Organization [address] [facility] 3rd [place] [address] Phone Care Team Providers Care Event Coordinator Marketing And Sales Name Role Phone Unavailable Primary Care Provider [...] Type Department Care Team Description 01/03/2025 Abstract [facility] Oncology and Hematology - [address] [place] [id number] Carlos Harrington MD 12/26/2024 External Device Data ST[facility] ABSTRACTION Provider, Abstract 12/26/2024 External Device Data [facility] ABSTRACTION Provider, Abstract 12/18/2024 External Device Data [facility] ABSTRACTION Provider, Abstract 12/18/2024 External Device Data [facility] ABSTRACTION Provider, Abstract 12/18/2024 External Device Data [facility] ABSTRACTION Provider, Abstract 12/12/2024 4:00 PM CDT Office Visit [facility] Oncology and Hematology - [address] [place] [address] Carlos Harrington MD Iron overload [...] on file 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 Gender Identity Not on file Sexual Orientation [...] 01/17/2025 4:30 PM CDT Telephone Check Up [facility] Oncology and Hematology - [address] [place] [address] Carlos Harrington MD [address] [facility] [address] [place] [address] Health Maintenance Due Date Last Done Comments HPV VACCINES (1 - 3-dose series) 2007 HEPATITIS B VACCINES (1 of 3 - 19+ 3-dose series) 2011 HPV/Cotest (21-29) 2013 CERVICAL CANCER SCREENING [...] [facility] Comment: Test Performed at: [employer] [address] [place] [address] Shreya Rodrigues MD Blood 12/17/2024 2:07 PM CDT 12/17/2024 2:10 PM CDT Carlos Harrington MD CHEMISTRY ORDERABLES Final Resu lt [facility] [phone] [facility] [address] [place] [address] * CBC WITH DIFFERENTIAL (12/17/2024 2:07 PM [...] [facility] Comment: Test Performed at: [facility] [address] [address] Shreya Rodrigues MD 12/17/2024 2:07 PM CDT 12/17/2024 2:10 PM CDT Carlos Harrington MD HEMATOLOGY ORDERABLES Final Res ult [facility] [phone] [facility] [address] [place] [address] * FERRITIN (12/17/2024 2:07 PM CDT) FERRITIN 16 16 - 154 ng/mL [facility] Comment: Test Performed at: [facility] [address] [place] [address] Shreya Rodrigues MD Blood 12/17/2024 2:07 PM CDT 12/17/2024 2:10 PM CDT us Carlos Harrington MD CHEMISTRY ORDERABLES Final Resu lt [facility] [phone] [facility] [address] [place] [address] from Last 3 Months Insurance
--- OUTSIDE RECORDS SUMMARY | 2025-01-08 14:33 | XMS_ITS | Encounter Summary ---
Author Organization [facility] Address [address] [place] [address] Phone Care Team Providers Care Taxi Driver Supervisor Name Role Phone Marlys Urena SECURITY POLICE OFFICER Primary Care Provider [phone] Encounter Details Date Type Department Care Team (Late st Contact Info) Description 12/13/2024 Results Follow-Up [facility] Allergy and Immunology [address] [facility] [address] [place] [address] Briana Michelle MD [address] [place] [address] Strep pneumoniae antibody serotypes Social History Tobacco [...] on file Legal Sex Female 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 [address] PCP - General Seismograph Shooter 07/19/24 documented as of this encounter
--- OUTSIDE RECORDS SUMMARY | 2025-01-08 14:33 | XMS_ITS | Referral Summary ---
Author Organization [facility] Virtual Care Address [address] [place] [address] Phone Care Team Providers Care Jr. Systems Administrator Name Role Phone Marlys Urena NP Primary Care Provider [phone] Encounters Date Type Department Care Team Description 12/24/2024 Telephone [facility] Scheduling [address] [place] [address] Alisha Fisher 12/13/2024 Results Follow-Up [facility] Allergy and Immunology [facility] [address] [phone] Briana Michelle MD Strep pneumoniae antibody serotypes 12/10/2024 2:59 PM CDT - 12/10/2024 11:59 PM CDT Hospital Encounter [facility] [address] [place] [address] Chronic sinusitis, unspecified location; Persistent asthma without complication, unspecified asthma severity Discharge Disposition: Discharge to home or self care 12/10/2024 2:50 PM CDT Lab [facility] Infectious Diseases [address] [place] [address] [address] [place] [phone] 12/10/2024 1:00 PM CDT Office Visit [facility] Allergy and Immunology [address] [place] [address] [address] [place] [phone] Briana Michelle MD Persistent asthma without complication, unspecified asthma severity (Primary Dx); Chronic sinusitis, unspecified location 10/24/2024 Telephone [facility] Ophthalmology [facility] [place] [address] Dana Rodriguez OD fyi from Last 3 [...] on file Legal Sex Female 8:03 PM MANAGER CATH LAB Gender Identity Not on file Sexual Orientation Not on file Last Filed Vital Signs Vital Sign Reading Time Taken Comments Blood Pressure 131/89 12/10/2024 1:01 PM CDT Pulse 101 12/10/2024 1:01 PM CDT Temperature 36.8 C (98.2 F) 12/10/2024 1:01 PM CDT Respiratory Rate 18 07/18/2024 9:49 PM MANAGER CATH LAB Oxygen Saturation 99% 12/10/2024 1:01 PM CDT Inhaled Oxygen Concentration - - Weight 76.8 kg (169 lb 6.4 oz) 12/10/2024 1:01 P M CDT Height 154.9 cm (5' 1) 12/10/2024 1:01 PM CDT Body Mass Index 32.01 12/10/2024 1:01 PM CDT Plan of Treatment Not on file Procedures Procedure Name Priority Date/Time Associated Diagnosis Comments BLOOD MISC TO COTTON PLANT Routine 12/10/2024 6: 33 PM CDT DIFFERENTIAL [...] without complication, unspecified asthma severity ALLERGEN SYCAMORE MOROCCAN (TREE) IGE Routine 12/10/2024 2:59 PM CDT [...] without complication, unspecified asthma severity ALLERGEN PLANTAIN OCCITAN (WEED) IGE Routine 12/10/2024 2:59 PM CDT [...] without complication, unspecified asthma severity ALLERGEN COCKROACH MOROCCAN (INSECT) IGE Routine 12/10/2024 2:59 PM CDT [...] 3 Months Results * BLOOD MISC TO COTTON PLANT (12/10/2024 6:33 PM CDT) Test name, chem [facility] [place] [facility] Misc See Footnote LAZARUS FISHER Comment: Test Result Flag Unit RefValue Tetanus Toxoid IgG Ab, S Tetanus IgG Ab Positive REFERENCE VALUE Vaccinated: Positive (>= 0.01 IU/mL) Unvaccinated: Negative (< 0.01 IU/mL) Tetanus IgG Value 0.73 IU/mL ADDITIONAL INFORMATION This test was developed and its performance characteristics determined by [facility] in a manner consistent with CLIA requirements. This test has not been cleared or approved by the U.S. Food and Drug Administration. Test Performed by: [facility] [address] [place] [address] Assistant Account Executive: Kareem Miranda Ph.D.; CLIA# [id number] Blood 12/10/2024 6:33 PM CDT 12/11/2024 8:31 AM CDT Narrative LAZARUS FISHER - 12/14/2024 2:17 PM CDT TETANUS IgG Briana Michelle MD LAB BLOOD ORDERABLES Final Result Performing Organization Address [facility] de Phone Number LAZARUS FISHER [address] [address] [place] [address] [place] * Allergen Rat mix (animal) IgE (12/10/2024 2:59 PM CDT) [facility] Rat mix IgE <0.10 0.00 - 0.34 kUnits/L Comment:Testing performed by : [facility], [address] [place]., [address] Blood 12/10/2024 2:59 PM CDT 12/11/2024 10:17 AM CDT Briana Michelle MD LAB BLOOD ORDERABLES Final Result LAZARUS [address] Department [place] [address] * Allergen Mouse mix (animal) IgE (12/10/2024 2:59 PM CDT) Mouse mix IgE <0.10 0.00 - 0.34 kUnits/L Comment:Testing performed by : [facility], [address] [place]., [address] Blood 12/10/2024 2:59 PM CDT 12/11/2024 10:17 AM CDT Briana Michelle MD LAB BLOOD ORDERABLES Final Result Performing Organization Address [facility] de Phone Number LAZARUS [address] [address] Department [place] [address] * Differential, auto (12/10/2024 2:59 PM CDT) Pathologist [facility] Neutrophil abs 4.93 1.50 - 6.50 K/cumm Imm gran abs 0.02 0.00 - 0.10 K/cumm [facility] Lymphocyte abs 2.14 0.80 - 3.30 K/cumm [facility] Monocyte abs 0.32 0.20 - 0.80 K/cumm [facility] Eosinophil abs 0.04 0.00 - 0.50 K/cumm [facility] Basophil abs 0.04 0.00 - 0.10 K/cumm [facility] Neutrophil pct 65.8 % [facility] Comment: Interpretive Data Percent cell count reference ranges are not reported, since discordance with absolute values may lead to misinterpretation of CBC data. Current Interpretive Data was last revised on 2017. Imm gran pct 0.3 % [facility] Comment: Interpretive Data Percent cell count reference ranges are not reported, since discordance with absolute values may lead to misinterpretation of CBC data. Current Interpretive Data was last revised on 2017. Lymphocyte pct 28.6 % [facility] Comment: Interpretive Data Percent cell [...] LAB BLOOD ORDERABLES Final Result [facility] [address] Department [place] [address] * Immune competence (12/10/2024 2:59 PM CDT) CD3 pct 79 60 - 88 % Comment:Testing performed by : [facility], [address] [place] [address]., [address] CD3 Absolute 1,447 661 - 1,963 cells/mcL [facility] Comment:Testing performed by : [facility], [address] [place]., [address] CD4 pct 41 31 - 64 % [facility] Comment:Testing performed by : [facility], [address] [place]., [address] CD4 Absolute 736 365 - 1,294 cells/mcL [facility] Comment:Testing performed by : [facility], [address] [place]., [address] CD8 pct 36 12 - 40 % [facility] Comment:Testing performed by : [facility], [address] [place]., [address] CD8 Absolute 646 187 - 781 cells/mcL [facility] Comment:Testing performed by : [facility], 1 [facility], [address] CD19 pct 17 6 - 25 % [facility] Comment:Testing performed by : [facility], [address] [place]., [address] CD19 Absolute 314 86 - 488 cells/mcL [facility] Comment:Testing performed by : [facility], 1 [facility], [address] [id number] pct 5 5 - 25 % [facility] Comment:Testing performed by : [facility], 1 [facility], [address] [id number] Absolute 92 76 - 467 cells/mcL [facility] Comment:Testing performed by : [facility], 1 [facility], [address] CD4/CD8 ratio 1.1 [facility] Comment:Testing performed by : [facility], 1 [facility], [address] Blood 12/10/2024 2:59 PM CDT 12/10/2024 10:22 PM CDT Briana Michelle MD LAB BLOOD ORDERABLES Final Result LAZARUS [address] [address] Department [place] [address] * Allergen Penicillium chrysogenum (mold) IgE (12/10/2024 2:59 PM CDT) Penicillium chrysogenum IgE <0.10 0.00 - 0.34 kUnits/L Comment:Testing performed by : [facility], [address] [place]., [address] Blood 12/10/2024 2:59 PM CDT 12/11/2024 10:17 AM CDT Briana Michelle MD LAB BLOOD ORDERABLES Final Result Performing Organization Address [facility] Co de Phone Number LAZARUS FISHER [address] [address] [place] [facility] [place] [address] * Allergen Gay (tree) IgE (12/10/2024 2:59 PM CDT) Gay IgE <0.10 0.00 - 0.34 kUnits/L Comment:Testing performed by : [facility], [address] [place]., [address] Blood 12/10/2024 2:59 PM CDT 12/11/2024 10:17 AM CDT Briana Michelle MD LAB BLOOD ORDERABLES Final Result Performing Organization Address [facility] de Phone Number LAZARUS FISHER [address] [address] [place] [address] * Allergen Mountain juniper (tree) IgE (12/10/2024 2:59 PM CDT) Pathologist [facility] Mountain junbret IgE <0.10 0.00 - 0.34 kUnits/L Comment:Testing performed by : [facility], [address] [place] [address]., [id number] Blood 12/10/2024 2:59 PM CDT 12/11/2024 10:17 AM CDT Briana Michelle MD LAB BLOOD ORDERABLES Final Result Performing Organization Address City/[facility] Co de Phone Number LAZARUS [address] [address] [place] [facility] [place] [address] * (ABNORMAL) CBC with auto [...] MD LAB BLOOD ORDERABLES Final Result CERRADHA [address] [address] [place] [address] * Strep pneumoniae antibody serotypes (12/10/2024 2:59 PM CDT) S. pneumo Type 1 (1) 0.2 >=1.0 mcg/mL [place] [facility] S. pneumo Type 2 (2) [...] and its performance characteristics determined by [facility] in a manner consistent with CLIA requirements. This test has not been cleared or approved by the U.S. Food and Drug Administration. Test Performed by: [facility] [address] [place] [address] Assistant Account Executive: Kareem Miranda Ph.D.; CLIA# [id number] Blood 12/10/2024 2:59 PM CDT 12/10/2024 7:23 PM CDT Briana Michelle MD LAB BLOOD ORDERABLES Final Result Performing Organization Address City/[facility]/ZIP Co de Phone Number MARGARITARADHA FISHER [address] [address] [email or web address] [address] [place] * Allergen Bermuda grass (grass) IgE (12/10/2024 2:59 PM CDT) Bermuda grass IgE <0.10 0.00 - 0.34 kUnits/L Comment:Testing performed by : [facility], [address] [place]., [address] Blood 12/10/2024 2:59 PM CDT 12/11/2024 10:17 AM CDT Briana Michelle MD LAB [place] [address] [address] [email or web address] [address] * Allergen Plantain swedish (weed) IgE (12/10/2024 2:59 PM CDT) Pathologist [facility] Plantain swedish IgE <0.10 0.00 - 0.34 kUnits/L Comment:Testing performed by : [facility], [address] [place] [address]., [address] Blood 12/10/2024 2:59 PM CDT 12/11/2024 10:17 AM CDT Briana Michelle MD LAB BLOOD ORDERABLES Final Result Performing Organization Address City/[facility]/ZIP Co de Phone Number LAZARUS [address] [address] [place] [facility] [place] [address] * Allergen Elm (tree) IgE (12/10/2024 2:59 PM CDT) Elm IgE <0.10 0.00 - 0.34 kUnits/L Comment:Testing performed by : [facility], [address] [place] [address]., [id number] Blood 12/10/2024 2:59 PM CDT 12/11/2024 10:17 AM CDT Briana Michelle MD LAB BLOOD ORDERABLES Final Result Performing Organization Address City/[facility]/ZIP Co de Phone Number LAZARUS [address] [address] [place] [facility] [place] [address] * Allergen Cladosporium herbarum (mold) IgE (12/10/2024 2:59 PM CDT) Cladosporium herbarum IgE <0.10 0.00 - 0.34 kUnits/L Comment:Testing performed by : [facility], [address] [place] [address]., [id number] Blood 12/10/2024 2:59 PM CDT 12/11/2024 10:17 AM CDT Briana Michelle MD LAB BLOOD ORDERABLES Final Result LAZARUS [address] [address] [place] [facility] [place] [address] * Allergen Birch common silver (tree) IgE (12/10/2024 2:59 PM CDT) Birch common silver IgE <0.10 0.00 - 0.34 kUnits/L Comment:Testing performed by : [facility], [address] [place] [address]., [id number] Blood 12/10/2024 2:59 PM CDT 12/11/2024 10:17 AM CDT Briana Michelle MD LAB BLOOD ORDERABLES Final Result LAZARUS [address] [address] Department [place] [address] * Allergen Alternaria tenuis (mold) IgE (12/10/2024 2:59 PM CDT) Alternaria tenius IgE <0.10 0.00 - 0.34 kUnits/L Comment:Testing performed by : [facility], [address] [place] [address]., [id number] Blood 12/10/2024 2:59 PM CDT 12/11/2024 10:17 AM CDT Briana Michelle MD LAB BLOOD ORDERABLES Final Result MARGARITARADHA [address] [address] Department [place] [place] [address] * Allergen Aspergillus fumigatus (mold) IgE (12/10/2024 2:59 PM CDT) Aspergillus fumigatus IgE <0.10 0.00 - 0.34 kUnits/L Comment:Testing performed by : [facility], [address] [place] [address]., [id number] Blood 12/10/2024 2:59 PM CDT 12/11/2024 10:17 AM CDT Briana Michelle MD LAB BLOOD ORDERABLES Final Result Performing Organization Address City/[facility]/ZIP Co de Phone Number LAZARUS FISHER [address] [address] [facility] [place] [address] * Allergen Dermatophagoides pteronyssinus (insect) IgE (12/10/2024 2:59 PM CDT) Dermatophyton pteronyssinus IgE <0.10 0.00 - 0.34 kUnits/L Comment:Testing performed by : [facility], [address] [place] [address]., [id number] Blood 12/10/2024 2:59 PM CDT 12/11/2024 10:17 AM CDT Briana Michelle MD LAB BLOOD ORDERABLES Final Result Performing Organization Address City/[facility] Co de Phone Number LAZARUS FISHER [address] [address] [facility] [place] [address] * Allergen Dermatophagoides farniae (insect) IgE (12/10/2024 2:59 PM CDT) Dermatophyton farinae IgE <0.10 0.00 - 0.34 kUnits/L Comment:Testing performed by : [facility], [address] [place] [address]., [id number] Blood 12/10/2024 2:59 PM CDT 12/11/2024 10:17 AM CDT Briana Michelle MD LAB BLOOD ORDERABLES Final Result Performing Organization Address City/[facility]/ZIP Co de Phone Number LAZARUS FISHER [address] [address] [facility] [employer] [place], [place] [address] * Allergen Epithelia/dander dog (animal) IgE (12/10/2024 2:59 PM CDT) Dog dander IgE <0.10 0.00 - 0.34 kUnits/L Comment:Testing performed by : [facility], [address] [place]., [address] Blood 12/10/2024 2:59 PM CDT 12/11/2024 10:17 AM CDT Briana Michelle MD LAB BLOOD ORDERABLES Final Result Performing Organization Address [facility] Co de Phone Number LAZARUS [address] [address] [place] [facility] [place] [address] * Allergen Cockroach welsh (insect) IgE (12/10/2024 2:59 PM CDT) Cockroach IgE <0.10 0.00 - 0.34 kUnits/L Comment:Testing performed by : [facility], [address] [place] [address]., [id number] Blood 12/10/2024 2:59 PM CDT 12/11/2024 10:17 AM CDT Briana Michelle MD LAB BLOOD ORDERABLES Final Result Performing Organization Address [facility] de Phone Number MARGARITARADHA [address] [address] [facility] [place] [address] * Allergen Epithelia/dander cat (animal) IgE (12/10/2024 2:59 PM CDT) Cat dander IgE <0.10 0.00 - 0.34 kUnits/L Comment:Testing performed by : [facility], [address] [place] [address]., [id number] Blood 12/10/2024 2:59 PM CDT 12/11/2024 10:17 AM CDT Briana Michelle MD LAB BLOOD ORDERABLES Final Result Performing Organization Address City/[facility] Co de Phone Number MARGARITARADHA [address] [address] [place] [facility] [place] [address] * Allergen Ragweed short/common (weed) IgE (12/10/2024 2:59 PM CDT) Ragweed common IgE <0.10 0.00 - 0.34 kUnits/L Comment:Testing performed by : [facility], [address] [place] [address]., [id number] Blood 12/10/2024 2:59 PM CDT 12/11/2024 10:17 AM CDT Briana Michelle MD LAB BLOOD ORDERABLES Final Result LAZARUS FISHER [address] [address] [facility] [place] [address] * Allergen Pigweed, rough (weed) IgE (12/10/2024 2:59 PM CDT) Pigweed rough IgE <0.10 0.00 - 0.34 kUnits/L Comment:Testing performed by : [facility], [address] [place] [address]., [id number] Blood 12/10/2024 2:59 PM CDT 12/11/2024 10:17 AM CDT Briana Michelle MD LAB BLOOD ORDERABLES Final Result MARGARITARADHA FISHER [address] [address] Department [place] [address] * Allergen Nettle (weed) IgE (12/10/2024 2:59 PM CDT) Nettle IgE <0.10 0.00 - 0.34 kUnits/L Comment:Testing performed by : [facility], [address] [place] [address]., [id number] Blood 12/10/2024 2:59 PM CDT 12/11/2024 10:17 AM CDT Briana Michelle MD LAB BLOOD ORDERABLES Final Result Performing Organization Address City/[facility] Co de Phone Number LAZARUS [address] [address] [facility] [place] [address] * Allergen Fagan's quarter (weed) IgE (12/10/2024 2:59 PM CDT) Fagan's quarters IgE <0.10 0.00 - 0.34 kUnits/L Comment:Testing performed by : [facility], [address] [place] [address]., [id number] Blood 12/10/2024 2:59 PM CDT 12/11/2024 10:17 AM CDT Briana Michelle MD LAB BLOOD ORDERABLES Final Result Performing Organization Address [facility] Co de Phone Number MARGARITARADHA [address] [address] [facility] [place] [address] * Allergen Navid grass (grass) IgE (12/10/2024 2:59 PM CDT) [facility] Navid grass IgE <0.10 0.00 - 0.34 kUnits/L Comment:Testing performed by : [facility], [address] [place] [address]., [id number] Blood 12/10/2024 2:59 PM CDT 12/11/2024 10:17 AM CDT Briana Michelle MD LAB BLOOD ORDERABLES Final Result Performing Organization Address City/[facility] Co de Phone Number LAZARUS [address] [address] [facility] [place] [address] * Allergen Perez grass (grass) IgE (12/10/2024 2:59 PM CDT) Pathologist [facility] Perez grass IgE <0.10 0.00 - 0.34 kUnits/L Comment:Testing performed by : [facility], [address] [place] [address]., [id number] Blood 12/10/2024 2:59 PM CDT 12/11/2024 10:17 AM CDT Briana Michelle MD LAB BLOOD ORDERABLES Final Result LAZARUS [address] [address] [place] [address] * Allergen Middlesex (tree) IgE (12/10/2024 2:59 PM CDT) Middlesex (tree) IgE <0.10 0.00 - 0.34 kUnits/L Comment:Testing performed by : [facility], [address] [place] [address]., [id number] Blood 12/10/2024 2:59 PM CDT 12/11/2024 10:17 AM CDT Briana Michelle MD LAB BLOOD ORDERABLES Final Result Performing Organization Address City/[facility]/ZIP Co de Phone Number LAZARUS [address] [address] [place] [facility] [place] [address] * Allergen [place] welsh (tree) IgE (12/10/2024 2:59 PM CDT) [place] IgE <0.10 0.00 - 0.34 kUnits/L Comment:Testing performed by : [facility], [address] [place] [address]., [id number] Blood 12/10/2024 2:59 PM CDT 12/11/2024 10:17 AM CDT Result [facility] Briana Michelle MD LAB BLOOD ORDERABLES Final Result LAZARUS [address] [address] [place] [address] * Allergen Maple/Box elder (tree) IgE (12/10/2024 2:59 PM CDT) Maple/box elder IgE <0.10 0.00 - 0.34 kUnits/L Comment:Testing performed by : [facility], [address] [place] [address]., [id number] Blood 12/10/2024 2:59 PM CDT 12/11/2024 10:17 AM CDT Briana Michelle MD LAB BLOOD ORDERABLES Final Result Performing Organization Address City/[facility]/ZIP Co de Phone Number MARGARITARADHA [address] [address] Department [place] [address] * Allergen [place] red (tree) IgE (12/10/2024 2:59 PM CDT) [place] IgE <0.10 0.00 - 0.34 kUnits/L Comment:Testing performed by : [facility], [address] [place] [address]., [id number] Blood 12/10/2024 2:59 PM CDT 12/11/2024 10:17 AM CDT Briana Michelle MD LAB BLOOD ORDERABLES Final Result Performing Organization Address [facility] Co de Phone Number LAZARUS [address] [address] Department [place] [address] * IgE (12/10/2024 2:59 PM CDT) IgE 10 <=100 IUnits/mL Comment:Testing performed by : [facility], [address] [place] [address], [place]., [address] Blood 12/10/2024 2:59 PM CDT 12/11/2024 10:30 AM CDT Briana Michelle MD LAB BLOOD ORDERABLES Final Result LAZARUS FISHER [address] [address] [facility] [place] [address] * IgA (12/10/2024 2:59 PM CDT) Immunoglobulin A 239 70 - 400 mg/dL Blood 12/10/2024 2:59 PM CDT 12/10/2024 7:23 PM CDT Briana Michelle MD LAB BLOOD ORDERABLES Final Result Performing Organization Address [facility] Co de Phone Number LAZARUS FISHER [address] [address] Department [employer] [place], [place] [id number] * IgM (12/10/2024 2:59 PM CDT) Immunoglobulin M 131 40 - 150 mg/dL Blood 12/10/2024 2:59 PM CDT 12/10/2024 7:23 PM CDT Briana Michelle MD LAB BLOOD ORDERABLES Final Result Performing Organization Address [facility] Co de Phone Number LAZARUS FISHER [address] [address] [place] Department [employer] [place], [place] [id number] * IgG (12/10/2024 2:59 PM CDT) Immunoglobulin G 963 700 - 1,600 mg/dL Blood 12/10/2024 2:59 PM CDT 12/10/2024 7:23 PM CDT Briana Michelle MD LAB BLOOD ORDERABLES Final Result Performing Organization Address [facility] Co de Phone Number LAZARUS FISHER [address] [address] [place] [facility] [place] [address] * SCAN - LABS (12/10/2024) us Provider Scanning Final Result from Last 3 Months Insurance [facility] Care Teams Jr. Systems Administrator Relationship Specialty Start Date End Date Marlys Urena NP [address] [place] [address] PCP - General Gis Programmer 07/19/24
[2025-01-08 15:23] LABS: Hematocrit 44.8 % (37.0-47.0); Hemoglobin 15.0 g/dL (12.0-15.0); Immature Granulocyte Percent A 0.2 % (0-0.5); Lymphocytes Absolute Auto 1.77 K/mm3 (0.9-3.2); Mean Corpuscular HGB Conc 33.5 g/dl (32-36); Mean Corpuscular Hemoglobin 29.1 pg (26-34); Mean Corpuscular Volume 86.8 fl (80-100); Nucleated Red Blood Cells Absolute Auto 0.000 K/mm3 (0.0-0.012); Nucleated Red Blood Cells Perc 0.0 % (0.0-0.2); Platelet Count Result 194 k/mm3 (150-375); Red Blood Count 5.16 M/mm3 (4.2-5.4); White Blood Count 5.9 K/mm3 (4.5-10.0)
[2025-01-08 16:53] LABS: Iron 161 ug/dL (37-170)
[2025-01-08 17:06] LABS: Percent Iron Saturation 39 % (20-50)
[2025-01-08 17:36] LABS: Ferritin 18.90 ng/mL (6.24-137)
== END 2025-01-08 14:26 | disposition home or self-care (01) ==
PROVIDERS: PCP Nurse Practitioner Family; Visit Provider Internal Medicine Hematology & Oncology
DX: E83.19 Other disorders of iron metabolism (principal)
CPT/HCPCS: 36415; 82728; 83540; 83550; 85025